=== PATIENT | male | born 1990 | race Caucasian/White ===

== ENCOUNTER 2024-12-08 17:42 | Emergency (ER) | payer OTHER, SELFPAY ==
[2024-12-08 17:44] VITALS: BP 131/82; PULSE 128; RESP 16; TEMP 36.6; O2SAT 97
--- NOTE | 2024-12-08 17:44 | ED_ITS ---
HPI - Animal Bite General Chief Complaint: Animal Bite Stated Complaint: cat bite Time Seen by Provider: 12/08/24 17:44 Source: patient Mode of arrival: ambulatory Limitations: no limitations History of Present Illness HPI narrative: 34-year-old male got bit by a cat 3 days ago on the back of his right hand. He has 2 bite logan on dorsum of the proximal phalanx the middle finger and on metacarpal. he had pain and swelling around bite hany extending to top of the index finger and the ring finger . he saw primary care physician who prescribed Augmentin 875. He has taken 3 doses but his right hand swelling tends to increase. No fever or chills patient is up-to-date on tetanus immunization. MD complaint: animal bite Onset (ago): day(s) ( 3 days ago) Animal: cat Description of animal: household pet Mechanism: bite Location - Extremities: Right: hand Pain description: constant Context: animals fighting Associated symptoms: erythema Treatments prior to arrival: other ( Augmentin) Related Data Patient tetanus UTD: Yes Allergies Allergy/AdvReac Type Severity Reaction Status Date / Time No Known Allergies Allergy Verified 12/08/24 18:16 Review of Systems 2 Review of Systems: All systems reviewed & are unremarkable except as noted in HPI and below Constitutional: Constitutional: Reports as per HPI and Reports no additional constitutional complaints Eyes: Eyes: Reports as per HPI and Reports no additional eye complaints ENT: Reports system reviewed and no additional complaints, except as documented and Reports as per HPI Cardiovascular: Cardiovascular: Reports as per HPI and Reports no additional cardiovascular complaints Respiratory: Respiratory: Reports as per HPI and Reports no additional respiratory complaints Gastrointestinal: Gastrointestinal: Reports as per HPI and Reports no additional gastrointestinal complaints Genitourinary: Genitourinary: Reports no additional male genitourinary complaints and Reports as per HPI Musculoskeletal: Musculoskeletal: Reports no additional musculoskeletal complaints and Reports as per HPI Integumentary/Breasts: Skin/Breast: Reports system reviewed and no additional complaints, except as docu Comments: pain/ erythema and swelling on the back of his right involving the proximal middle 3 fingers and the adjoining hand Neurologic: Reports system reviewed and no additional complaints, except as documented and Reports as per HPI Psychiatric: Psychiatric: Reports no additional psychiatric complaints and Reports as per HPI Endocrine: Endocrine: Reports no additional endocrine complaints and Reports as per HPI Hematologic/Lymphatic: Hematologic/Lymphatic: Reports no additional hematologic/lymphatic complaints and Reports as per HPI Allergic/Immunologic: Allergic/Immunologic: Reports no additional allergic/immunologic complaints and Reports as per HPI [facility] Past Medical History Medical History (Updated 12/08/24 @ 19:07 by Kris Guaman MD) Anxiety and depression Exam 2 Narrative: pulse 128. Blood pressure 131/82. Oxygen saturation of 97% on room air. Const: General: no acute distress Nutritional Appearance: well nourished Orientation/consciousness: patient oriented x3 Limitations: no limitations HENMT: Head: normal to inspection Ears: external ears normal F cullen/Nose/Sinus: Normal external nose present Face and sinus: normal facial exam Mouth: Yes Normal oral and palatal mucosa present Throat: posterior oropharynx normal Eyes: Conjunctivae: conjunctivae normal Pupils: Equal, round and reactive pupils present EOM: EOMs intact bilaterally Neck: Neck: normal visual inspection, no lymphadenopathy and no meningeal signs Chest: Chest palpation & inspection: normal inspection of the chest Resp: Effort & Inspection: normal respiratory effort Auscultation: clear to auscultation bilaterally Cardio: Rate: regular rate Rhythm: regular rhythm GI: GI Palp: Yes Soft to palpation Auscultation: normal bowel sounds O ther: No tenderness/rigidity/rebound. : General: Yes no CVA tenderness Back/Spine/Pelvis: Back: no CVA tenderness Skin: General skin exam: normal color Other: Cellulitis over the back of his right hand involving the proximal middle 3 fingers and the adjoining hand. The erythema extends backwards over the entire right hand. No regional lymphadenopathy. Two bite logan over the dorsum of proximal phalanx of the middle finger and over the 3rd metacarpal no difficulty extending the fingers. The patient is unable to fully flexes fingers. No tenderness over the flexor tendons. The minimal tenderness over the extent the tendon over the middle phalanx. Neuro: General: patient oriented x3, moves all extremities, no meningeal signs, no focal motor deficits and CN's II-XI intact bilaterally Speech: n ormal speech Extrem: Other: Cellulitis over the back of h Psych: Affect: normal affect Attitude: cooperative Course Course Emergency Course: Right hand cellulitis-- white count of 18.3. Normal lactate. advised the patient to monitor the cellulitis. If worsening is noted advised to return to the ED for inpatient admission with IV antibiotics. Renal insufficiency with a creatinine of 1.5 Vital Signs Vital signs: Vital Signs Temperature 36.6 C 12/08/24 17:44 Pulse Rate 128 H 12/08/24 17:44 Respiratory Rate 16 12/08/24 17:44 Blood Pressure 131/82 12/08/24 17:44 Pulse Oximetry 97 12/08/24 17:44 Oxygen Delivery Room Air 12/08/24 17:44 Temperature 36.6 C 12/08/24 17:44 Pulse Rate 128 H 12/08/24 17:44 Respiratory Rate 16 12/08/24 17:44 Blood Pressure 131/82 12/08/24 17:44 Pulse Oximetry 97 12/08/24 17:44 Oxygen Delivery Room Air 12/08/24 17:44 MDM - Animal Bite MDM Narrative Medical decision making narrative: right hand cellulitis renal insufficiency Differential Diagnosis Differential diagnosis: Likely cat bite Lab Data Attestation: I reviewed the patient's lab results. 12/08/24 18:04 12/08/24 18:04 Labs: Lab Results 12/08/24 Range/Units 18:04 WBC 18.3 H (4.8-10.8) K/mm3 RBC 5.13 (4.70-6.10) M/mm3 Hgb 14.7 (14.0-18.0) g/dL Hct 44.4 (40.0-54.0) % MCV 86.5 (78.0-102.0) fL MCH 28.7 (27.0-31.0) pg MCHC 33.1 (32-36) g/dL RDW 12.3 (11.6-14.4) % Plt Count 270 (150-420) K/mm3 MPV 9.7 (8.7-11.0) fl Immature Gran % (Auto) 0.5 H (0.0-0.0) % Neut % (Auto) 76.1 H (50.0-70.0) % Lymph % (Auto) 11.1 L (18.0-42.0) % Brantley % (Auto) 9.0 (2.0-11.0) % Eos % (Auto) 2.6 (1.0-6.0) % Baso % (Auto) 0.7 (0.0-1.0) % Lymph # (Auto) 2.03 (1.10-4.50) K/mm3 Brantley # (Auto) 1.65 H (0.10-0.90) K/mm3 Eos # (Auto) 0.48 (0.02-0.50) K/mm3 Baso # (Auto) 0.12 H (0.00-0.10) K/mm3 Abs Immat Gran (auto) 0.10 H (0.00-0.00) K/mm3 Absolute Neuts (auto) 13.96 H (1.70-7.20) K/mm3 Absolute Nucleated RBC 0.00 (0.00-0.00) K/mm3 Nucleated RBC % 0.0 (0-0.0) % Sodium 137 (137-145) mmol/L Potassium 4.1 (3.4-5.0) mmol/L Chloride 105 (98-107) mmol/L Carbon Dioxide 22 (22-30) mmol/L Anion Gap 10 (4-12) mmol/L BUN 14 (9-20) mg/dL Creatinine 1.35 H (0.7-1.3) mg/dL Estim Creat Clear Calc 89 ml/min Estimated GFR 60 (59 - ) Glucose 84 (65-110) mg/dL Calculated Osmolality 283 L (285-295) mOsm/kg Lactic Acid 1.2 (0.4-2.0) mmol/L Calcium 8.9 (8.4-10.2) mg/dL Total Bilirubin 0.4 (0.2-1.3) mg/dL AST 30 (17-59) U/L ALT 22 (6-50) U/L Alkaline Phosphatase 65 (38-126) U/L Total Protein 7.0 (6.3-8.2) g/dL Albumin 4.0 (3.5-5.1) g/dL Discharge Plan Discharge Clinical Impression: Cellulitis of hand Cat bite Qualifiers: Encounter type: subsequent encounter Qualified Code(s): W55.01XD - Bitten by cat, subsequent encounter Patient Disposition: Home Condition: Stable Instructions: Antibiotic Form, Cellulitis (ED) Additional Instructions: advised to follow-up with primary care physician in 2 days. Blood cultures are pending. Continue Augmentin. Patient Language: Swedish Follow-up/Referrals: UNKNOWN,DOCTOR [Non-Staff] - Time of Disposition: 19:07
--- OUTSIDE RECORDS SUMMARY | 2024-12-08 17:45 | XMS_ITS | Encounter Summary ---
Author Name [facility] [place] [facility] [place] Address [address] [place] [address] Care Team Providers Care Contracting Officer Name Role Phone ASHWINI DAVIS Primary Care Provider Unavailabl e Insurance Providers: All historical and current Section Date Range: From patient's date of to the date document was created. This section includes the names of all active insurance providers for the patient. Insurance Provider Type of Coverage Plan Name Start of Policy Coverage End of Policy Coverage Group Number Member ID Insurance Provider's Telephone Number Policy Ochoa's Name Patient's Relationship to Policy Ochoa Selected Encounter This section includes the information on record at [place] for the Encounter. Date/Time Encounter Type Encounter Description Reason Provider Source Dec 03, 2024 08:00 AM OFFICE O/P EST MOD 30 MIN ENDOCRINOLOGY ICD-10-CM E29.[address] T[facility] Yaz Encounter Template Text not used by [place] Assessments - Encounter Diagnoses This section includes the primary and secondary diagnoses documented for the Encounter. Date/Time Primary/Secondary Diagnosis Diagnosis Name Provider Source Dec 03, 2024 08:12 AM PRIMARY Testicular hypofunction [facility] [facility] Plan of Treatment: Future Appointments (+ 6 months) and Future Tests (+/- 45 days) The Plan of Treatment section includes future care activities for the patient from all [place] treatmentfacilities. This section includes future appointments and future orders which are active, pending or scheduled. Future Appointments This section includes appointments that were scheduled to occur 6 months from the date of the Encounter, up to a maximum of 20 appointments. The data comes from all [facility]. Appointment Date/Time Appointment Type Appointme nt Facility Name Jan 10, 2025 03:30 PM AMBULATORY - NONE [facility] Feb 06, 2025 08:00 AM AMBULATORY - PSYCHIATRY [facility] Feb 11, 2025 03:00 PM AMBULATORY - NONE [facility] Mar 11, 2025 02:40 PM AMBULATORY - NONE [facility] May 27, 2025 08:00 AM AMBULATORY - MEDICINE [facility] Active, Pending, and Scheduled Orders This section includes a listing of several types of active, pending, and scheduled orders, including clinic medications orders, diagnostic test orders, procedure orders and consult orders; where the start date of the order is 45 days before the date of the Encounter or 45 days after the date of theEncounter. The data comes from all [facility]. Test Date/Time Test Type Test Details Facility Name Dec 14, 2024 12:00 AM Laboratory - Chemistry Order TESTOSTERONE, FREE PANEL RED/NO-GEL SERUM SP [facility] Dec 14, 2024 12:00 AM Laboratory - Chemistry Order CBC BLOOD SP [facility] Dec 14, 2024 12:00 AM Laboratory - Chemistry Order COMPREHENSIVE METABOLIC PANEL GREEN LI/HEP BLD/PLAS PLASMA [facility] Dec 14, 2024 12:00 AM Laboratory - Chemistry Order LIPID PANEL (STL) GREEN LI/HEP BLD/PLAS PLASMA SP [facility] Dec 14, 2024 12:00 AM Laboratory - Chemistry Order HGA1C BLOOD [facility] Social History: Smoking Status (Most current) and Tobacco Use (All prior to encounter date) This section includes the most current, and the historical, smoking and tobacco- related health factors from the [place] facility where the Encounter took place. Current Smoking Status This section includes the most current smoking, or tobacco-related health factor, from the [place] facility where the Encounter took place. Date/Time Current Smoking Status Jonny mahan 2023 10:30 AM AH-BPR SMOKING DEPLOYMENT NO [facility] Encounter Notes: All associated encounter notes This section contains the clinical notes associated to the Encounter. Date/Time Encounter Note(s) Provider Source Dec 03, 2024 07:58 [facility]: LOCAL TITLE: ENDOCRINOLOGY OUTPATIENT FOLLOW UP [facility] STANDARD TITLE: ENDOCRINOLOGY OUTPATIENT NOTE DATE OF NOTE: DEC 03, 2024@07:58 ENTRY DATE: DEC 03, 2024@07:58:33 AUTHOR: LANE TORIBIO EXP COSIGNER: URGENCY: STATUS: COMPLETED ENDOCRINOLOGY VIRTUAL VISIT The was educated about the use of Clinical Video Telehealth for this encounter. The [place] also understands that a video-technology is being used for this visit. The consents to be seen today using Clinical Video Telehealth. Emergency Services contact [phone] Full name and last 4 of SSN verified Patient location during visit: Home [phone] [place] [address] Emergency number confirmed. Follow up: hypogonadism HPI: 34 year old male with no prior medical history who presents for evaluation of hypogonadism. 1. Hypogonadism - symptoms: low libido, tired, erectile dysfunction for several years - BMI 29 - no TBI, radiation, prostate issues, opioid or alcohol use - had 5 children, had vasectomy - No history of CVD, DVT/PE, prostate cancer, severe untreated KRISTIN - no vision changes, headaches, galatorrhea: no - kristin: use cpap regularly - sleep: sleep is good, at least 6 hours daily Pertinent labs: prolactin 16 FSh 3, LH 1.4, LH 1.5 in 10/2023 TSH 1.7 in 202101/02/2024, 9 am total T 296 and free T 39 L PSA 0.6 hct 48 Pituitary MRI 04/2024: Findings: No mass, midline shift, obstructive hydrocephalus or abnormal contrast enhancement is observed. The pituitary is normal in size, shape and position. The pituitary stalk is in normal midline position. No macroadenoma or definite microadenoma is seen. There is a 1-2 mm hypointensity to the right of the pituitary stalk without stalk deviation best seen on series 11 image 8. It is hyperintense on T2-weighted sequences and is unchanged throughout the dynamic enhancement sequence. I cannot be certain at this time whether this represents a cyst, artifact or microadenoma. Impression: Small area of hypointensity in the right side of the pituitary as described and discussed above. Current dose is testosterone 100 mg every 2 weeks. Feels energy level has improved - started on 200 mg every 2 weeks in 02/2024 lab results total testosterone of 553 hematocrit 47.3% in V PSA was 0.6 in 2023 - Testosterone changed from 200 mg every 2 weeks to 100 mg weekly as he feels that effects are wearing off after a few days ROS: 10 point ros done and negative except as per HPI Active Outpatient Medications (including Supplies): Active Outpatient Medications Status 1) SYRINGE 3ML/NDL 23G 1.5IN USE 1 SYRINGE INTRAMUSCULARLY ACTIVE (S) WEEKLY Indication: FOR TESTOSTERONE INJECTION 2) TESTOSTERONE CYP 200MG/ML 1ML IN OIL INJECT 100MG/0.5ML ACTIVE (S) DEEP INTRAMUSCULARLY WEEKLY Indication: FOR LOW TESTOSTERONE PAST HISTORY: 1) Exposure to potentially hazardous substance (SNOMED CT [id number]) OBJECTIVE: VVC Physical Exam Home vitals: GENERAL: No acute distress. Sitting comfortably Respiratory: Regular respiratory rate. Musculoskeletal: No joint deformity or effusion apparent on video Neuro: Alert and orientated SKIN: No obvious rash or ecchymosis. Objective: No HEMOGLOBIN A1C EO data found No BASIC METABOLIC PANEL (BMP) EO data found No data available No MICRAL/CREAT RATIO (STL) data found No LIPID PANEL EO data found No TSH (2YR) EO data found Allergies: ORLISTAT Assessment/Plan: 34 year old male with no prior medical history who presents for evaluation of hypogonadism. 1. 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 - symptoms: low libido, tired, erectile dysfunction for several years - BMI 29 - no TBI, radiation, prostate issues, opioid or alcohol use - had 5 children, had vasectomy - No history of CVD, DVT/PE, prostate cancer, severe untreated KRISTIN - no vision changes, headaches, galatorrhea: no - kristin: use cpap regularly - sleep: sleep is good, at least 6 hours daily - exercise: at least 3-4 times weekly Pertinent labs: prolactin 16 FSh 3, LH 1.4, LH 1.5 in 10/2023 TSH 1.7 in 202101/02/2024, 9 am total T 296 and free T 39 L PSA 0.6 hct 48 Pituitary MRI 04/2024: Findings: No mass, midline shift, obstructive hydrocephalus or abnormal contrast enhancement is observed. The pituitary is normal in size, shape and position. The pituitary stalk is in normal midline position. No macroadenoma or definite microadenoma is seen. There is a 1-2 mm hypointensity to the right of the pituitary stalk without stalk deviation best seen on series 11 image 8. It is hyperintense on T2-weighted sequences and is unchanged throughout the dynamic enhancement sequence. I cannot be certain at this time whether this represents a cyst, artifact or microadenoma. Impression: Small area of hypointensity in the right side of the pituitary as described and discussed above. Current dose is testosterone 100 mg every 2 weeks. Feels energy level has improved - started on 200 mg every 2 weeks in 02/2024 lab results total testosterone of 553 hematocrit 47.3% in JLV PSA was 0.6 in 2023 - Testosterone changed from 200 mg every 2 weeks to 100 mg weekly as he feels that effects are wearing off after a few days P: - continue testosterone 100 mg weekly - endorses fatigue - advised that fatigue may not always get better with TRT. Will repeat testosterone level and cbc, also order cmp, lipid panel and a1c - continue regulary use of cpapc and regular exercise - repeat MRI pituitary in 04/2025 RTC 6 months Patient verbalized understanding and has no questions. /zainab/ Lane Toribio MD [employer] Signed: 12/03/2024 08:[address] [facility]
--- OUTSIDE RECORDS SUMMARY | 2024-12-08 17:45 | XMS_ITS | Continuity of Care Document ---
Author Name [facility] Organization [facility] Care Team Providers Care Gender Studies Professor Name Role Phone [facility] Unavailable Unavailable Problems Combined list of problems from Department of Defense and Veterans Affairs facilities. It does not include entries that were removed or entered in error. Problem Status Onset Date Problem Type Date of Resolution Comments Source OTHER SPECIFIED FAMILY CIRCUMSTANCES Active Condition DoD ADULT PHYSICAL ABUSE Active Condition DoD visit for: services physical Active Condition DoD ALCOHOL DEPENDENCE (ALCOHOLISM) Active Condition DoD PARTNER RELATIONAL PROBLEM Inactive Condition DoD visit for: administrative purpose Inactive Condition DoD visit: ears/hearing exam for hearing conservation, treatment Inactive Condition DoD ASSESSMENT OF PATIENT CONDITION WORK STATUS Active Condition DoD Observation For Suspected Condition Active Condition DoD CONTACT DERMATITIS DUE TO PLANTS Inactive Condition DoD Vaccines Prophylactic Need Active Condition DoD Need For Vaccination Hepatitis A Active Condition DoD Need For Vaccination MMR Active Condition DoD visit for: laboratory Active Condition DoD visit for: screening exam Active Condition DoD carrier of infectious disease streptococcal Active Condition DoD Vaccines Prophylactic Need Against Influenza Inactive Condition DoD Vaccines Prophylactic Need Against Bacterial Diseases Active Condition DoD Need For Vaccination Poliomyelitis Active Condition DoD visit for: screening exam pulmonary tuberculosis Active Condition DoD Vaccines Prophylactic Need Against DTP Active Condition DoD visit for: services physical accession Active Condition DoD visit for: ears / hearing exam Inactive Condition DoD Allergic rhinitis Active Condition [facility] Anxiety disorder Active [facility] Asthma Active Condition Aug 23 24 Entered By: KATARINA CORRIGAN Comment: Seen community care stave jointer diagnosed him with asthma put on looks well today [facility] Chronic low back pain Active Condition [facility] Chronic pain of left foot Active Condition [facility] Chronic post-traumatic stress disorder following combat Active [facility] Continuous dependence on chewing tobacco Active Condition [facility] Depressive disorder Active Condition [facility] Equinus contracture of the ankle Active Condition [facility] Exposure to Potentially Hazardous Substance (SCT [id number]) Active Condition [facility] Exposure to potentially hazardous substance (SNOMED CT [id number]) Active Condition Jan 19 3 Entered By: LUKASZ AGUIRRE I Comment: Airborne Hazards/Burn pits [facility] 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 [facility] Obesity Active Condition [facility] Obstructive sleep apnea Active Condition [facility] Pain of bilateral knee joints Active Condition [facility] Diagnosis: ICD-10-CM E29.1 Testicular hypofunction Active Diagnosis [facility] Diagnosis: ICD-10-CM F43.12 Post-traumatic stress disorder, chronic Active Diagnosis [facility] Diagnosis: ICD-10-CM Z00.01 Encounter for general adult medical exam w abnormal findings Active Diagnosis [facility] Diagnosis: ICD-10-CM E66.09 Other obesity due to excess calories Active Diagnosis [facility] Diagnosis: ICD-10-CM E66.9 Obesity, unspecified Active Diagnosis [facility] Diagnosis: ICD-10-CM Z68.30 Body mass index [BMI] 30.0-30.9, adult Active Diagnosis [facility] Diagnosis: ICD-10-CM J45.909 Unspecified asthma, uncomplicated Active Diagnosis [facility] Diagnosis: ICD-10-CM G47.00 Insomnia, unspecified Active Diagnosis [facility] Diagnosis: ICD-10-CM J45.998 Other asthma Active Diagnosis [facility] Medications Combined list of outpatient medications from Department of Defense and [facility] Affairs facilities.Medications provided include 1) outpatient medications from the last 15 months, and 2) patient-reported medications. Medication Details Route Status Patient Instructions Prescription Expires Prescription Number Last Dispense Date Ordering Provider Order Date Order Qty Source ACETAMINOPH EN 500MG TAB TAKE TWO TABLETS BY MOUTH THREE TIMES A DAY NEEDED FOR PAIN OR FEVER - DO NOT EXCEED 4000MG OF ACETAMIN OPHEN (APAP) PER DAY FROM ANY AND ALL SOURCES ORAL SUSPEND ED 11/22/2025 [id number] Braeden MAKI [address] [place] [address] ACETAMINOPH EN 500MG TAB TAKE TWO TABLETS BY MOUTH THREE TIMES A DAY NEEDED FOR PAIN OR FEVER - DO NOT EXCEED 4000MG OF ACETAMIN OPHEN (APAP) PER DAY FROM ANY AND ALL SOURCES ORAL DISCONT INUED 09/25/2025 [id number] 5 Braeden DAVIS 2024 100 [facility] ACETAMINOPH EN 500MG TAB TAKE TWO TABLETS BY MOUTH THREE TIMES A DAY NEEDED FOR PAIN OR FEVER - DO NOT EXCEED 4000MG OF ACETAMIN OPHEN (APAP) PER DAY FROM ANY AND ALL SOURCES ORAL DISCONT INUED 08/10/2025 [id number] 5 Adalberto MYERS 2024 100 [facility] ACETAMINOPH EN 500MG TAB TAKE TWO TABLETS BY MOUTH THREE TIMES A DAY NEEDED FOR PAIN OR FEVER - DO NOT EXCEED 4000MG OF ACETAMIN OPHEN (APAP) PER DAY FROM ANY AND ALL SOURCES ORAL DISCONT INUED 06/19/2025 [id number] 5 DO KEIRY CORRIGAN R 2024 100 [facility] ACETAMINOPH EN 500MG TAB TAKE TWO TABLETS BY MOUTH THREE TIMES A DAY NEEDED FOR PAIN OR FEVER - DO NOT EXCEED 4000MG OF ACETAMIN OPHEN (APAP) PER DAY FROM ANY AND ALL SOURCES ORAL DISCONT INUED 04/21/2025 [id number] 4 DO KEIRY CORRIGAN R 2023 100 [facility] ACETAMINOPH EN 500MG TAB TAKE TWO TABLETS BY MOUTH THREE TIMES A DAY NEEDED FOR PAIN OR FEVER - DO NOT EXCEED 4000MG OF ACETAMIN OPHEN (APAP) PER DAY FROM ANY AND ALL SOURCES ORAL DISCONT INUED 02/23/2025 [id number] 4 DO KEIRY CORRIGAN R 2023 100 [facility] ACETAMINOPH EN 500MG TAB TAKE TWO TABLETS BY MOUTH THREE TIMES A DAY NEEDED FOR PAIN OR FEVER - DO NOT EXCEED 4000MG OF ACETAMIN OPHEN (APAP) PER DAY FROM ANY AND ALL SOURCES ORAL DISCONT INUED 01/17/2025 [id number] 4 DO KEIRY CORRIGAN R 2023 100 [facility] ACETAMINOPH EN 500MG TAB TAKE TWO TABLETS BY MOUTH THREE TIMES A DAY NEEDED FOR PAIN OR FEVER - DO NOT EXCEED 4000MG OF ACETAMIN OPHEN (APAP) PER DAY FROM ANY AND ALL SOURCES ORAL DISCONT INUED 08/23/2024 [id number] 4 DO KEIRY CORRIGAN R 2023 100 [facility] ALBUTEROL 90MCG/ACTUA T (CFC-F) INHL,ORAL,8 .5GM DOSE COUNTER INHALE 2 PUFFS BY MOUTH EVERY 6 HOURS NEEDED RESPIR ATORY (INHAL ATION) SUSPEND ED 11/20/2025 [id number] 5 Braeden DAVIS 2024 3 [facility] ALBUTEROL 90MCG/ACTUA T (CFC-F) INHL,ORAL,8 .5GM DOSE COUNTER INHALE 2 PUFFS BY MOUTH EVERY 6 HOURS NEEDED RESPIR ATORY (INHAL ATION) DISCONT INUED 05/02/2025 [id number] 5 Adalberto MYERS 2024 3 [facility] ALBUTEROL 90MCG/ACTUA T (CFC-F) INHL,ORAL,8 .5GM DOSE COUNTER INHALE 2 PUFFS BY MOUTH EVERY 6 HOURS NEEDED RESPIR ATORY (INHAL ATION) DISCONT INUED 01/17/2025 [id number] 4 DO KEIRY CORRIGAN 2023 3 [facility] ALBUTEROL 90MCG/ACTUA T (CFC-F) INHL,ORAL,8 .5GM DOSE COUNTER INHALE 2 PUFFS BY MOUTH EVERY 6 HOURS NEEDED RESPIR ATORY (INHAL ATION) DISCONT INUED 02/15/2024 [id number] NAM CANNON 2022 3 [facility] CELECOXIB 200MG CAP TAKE ONE CAPSULE BY MOUTH TWO TIMES A DAY NEEDED FOR PAIN ORAL SUSPEND ED 11/20/2025 [id number] 5 Braeden DAVIS 2024 180 [facility] CELECOXIB 200MG CAP TAKE ONE CAPSULE BY MOUTH TWO TIMES A DAY NEEDED FOR PAIN ORAL DISCONT INUED 08/10/2025 [id number] 5 Adalberto MYERS 2024 180 [facility] CELECOXIB 200MG CAP TAKE ONE CAPSULE BY MOUTH TWO TIMES A DAY NEEDED FOR PAIN ORAL DISCONT INUED 05/02/2025 [id number] 5 Adalberto MYERS 2024 180 [facility] CELECOXIB 200MG CAP TAKE ONE CAPSULE BY MOUTH TWO TIMES A DAY NEEDED FOR PAIN ORAL DISCONT INUED 01/17/2025 [id number] 4 DO MEENU UGLAS R 2023 180 [facility] CELECOXIB 200MG CAP TAKE ONE CAPSULE BY MOUTH TWO TIMES A DAY NEEDED FOR PAIN ORAL DISCONT INUED 08/23/2024 [id number] 4 DO MEENU UGLAS R 2023 180 [facility] CELECOXIB 200MG CAP TAKE ONE CAPSULE BY MOUTH TWO TIMES A DAY NEEDED FOR PAIN ORAL DISCONT INUED 01/17/2025 [id number] 4 DO MEENU UGLAS R 2023 180 [facility] CEPHALEXIN 500MG CAP TAKE ONE CAPSULE BY MOUTH TWICE A DAY FOR INFECTIO N ORAL 10/26/2024 [id number] Braeden DAVIS 2024 14 [facility] CETIRIZINE HCL 10MG TAB TAKE ONE TABLET BY MOUTH EVERY DAY ORAL SUSPEND ED 11/20/2025 [id number] 5 Braeden DAVIS 2024 90 [facility] CETIRIZINE HCL 10MG TAB TAKE ONE TABLET BY MOUTH EVERY DAY ORAL DISCONT INUED 08/23/2024 [id number] 4 DO KEIRY CORRIGAN R 2023 90 [facility] CETIRIZINE HCL 10MG TAB TAKE ONE TABLET BY MOUTH EVERY DAY ORAL DISCONT INUED 08/10/2025 [id number] 5 Adalberto MYERS A 2024 90 [facility] CETIRIZINE HCL 10MG TAB TAKE ONE TABLET BY MOUTH EVERY DAY ORAL DISCONT INUED 01/17/2025 [id number] 5 DO MEENU UGLAS R 2023 90 [facility] CHOLECALCIF IMELDA 10MCG (400UNIT) TAB TAKE ONE TABLET BY MOUTH DAILY FOR DIETARY SUPPLEME NT ORAL SUSPEND ED 11/20/2025 [id number] 5 Braeden DAVIS 2024 100 [facility] CHOLECALCIF IMELDA 10MCG (400UNIT) TAB TAKE ONE TABLET BY MOUTH DAILY FOR DIETARY SUPPLEME NT ORAL DISCONT INUED 08/23/2024 [id number] DO SWAPNA CORRIGANLAS R 2023 90 [facility] CHOLECALCIF IMELDA 10MCG (400UNIT) TAB TAKE ONE TABLET BY MOUTH DAILY FOR DIETARY SUPPLEME NT ORAL DISCONT INUED 05/02/2025 [id number] 5 Adalberto MYERS A 2024 100 [facility] CHOLECALCIF IMELDA 10MCG (400UNIT) TAB TAKE ONE TABLET BY MOUTH DAILY FOR DIETARY SUPPLEME NT ORAL DISCONT INUED 01/17/2025 [id number] 4 DO SWAPNA CORRIGANLAS R 2023 100 [facility] CYCLOBENZAP RINE HCL 10MG TAB TAKE ONE TABLET BY MOUTH AT BEDTIME NEEDED FOR MUSCLE RELAXATI ON ORAL ACTIVE 11/20/2025 [id number] 5 Braeden DAVIS 2024 30 [facility] CYCLOBENZAP RINE HCL 10MG TAB TAKE ONE TABLET BY MOUTH AT BEDTIME NEEDED FOR MUSCLE RELAXATI ON ORAL DISCONT INUED 05/02/2025 [id number] 5 Adalberto MYERS A 2023 30 [facility] CYCLOBENZAP RINE HCL 10MG TAB TAKE ONE TABLET BY MOUTH AT BEDTIME NEEDED FOR MUSCLE RELAXATI ON ORAL DISCONT INUED 01/17/2025 [id number] 4 DO MEENU UGLAS R 2023 30 [facility] CYCLOBENZAP RINE HCL 10MG TAB TAKE ONE TABLET BY MOUTH AT BEDTIME NEEDED FOR MUSCLE RELAXATI ON ORAL DISCONT INUED 08/23/2024 [id number] DO MEENU UGLAS R 2023 30 [facility] DICLOFENAC NA 1% GEL,TOP APPLY 2 GRAMS TOPICALL Y FOUR TIMES A DAY NEEDED NEEDED FOR PAIN AND INFLAMMA TION. DON'T EXCEED 16 GRAMS DAILY TO ANY AFFECTED LEG AREA. DON'T EXCEED 8 GRAMS DAILY TO ANY AFFECTED ARM AREA. DON'T EXCEED A TOTAL DOSE OF 32 GRAMS DAILY OVER ALL AREAS. *USE DOSING CARD TO MEASURE DOSE.* TOPICA L SUSPEND ED 11/01/2025 [id number] 5 Braeden DAVIS 2024 100 [facility] DICLOFENAC NA 1% GEL,TOP APPLY 2 GRAMS TOPICALL Y FOUR TIMES A DAY NEEDED NEEDED FOR PAIN AND INFLAMMA TION. DON'T EXCEED 16 GRAMS DAILY TO ANY AFFECTED LEG AREA. DON'T EXCEED 8 GRAMS DAILY TO ANY AFFECTED ARM AREA. DON'T EXCEED A TOTAL DOSE OF 32 GRAMS DAILY OVER ALL AREAS. *USE DOSING CARD TO MEASURE DOSE.* TOPICA L DISCONT INUED 05/02/2025 [id number] 5 Adalberto MYERS 2023 100 [facility] DICLOFENAC NA 1% GEL,TOP APPLY 2 GRAMS TOPICALL Y FOUR TIMES A DAY NEEDED NEEDED FOR PAIN AND INFLAMMA TION. DON'T EXCEED 16 GRAMS DAILY TO ANY AFFECTED LEG AREA. DON'T EXCEED 8 GRAMS DAILY TO ANY AFFECTED ARM AREA. DON'T EXCEED A TOTAL DOSE OF 32 GRAMS DAILY OVER ALL AREAS. *USE DOSING CARD TO MEASURE DOSE.* TOPICA L DISCONT INUED 01/17/2025 [id number] 4 DO KEIRY CORRIGAN R 2023 100 [facility] DICLOFENAC NA 1% GEL,TOP APPLY 2 GRAMS TOPICALL Y FOUR TIMES A DAY NEEDED NEEDED FOR PAIN AND INFLAMMA TION. DON'T EXCEED 16 GRAMS DAILY TO ANY AFFECTED LEG AREA. DON'T EXCEED 8 GRAMS DAILY TO ANY AFFECTED ARM AREA. DON'T EXCEED A TOTAL DOSE OF 32 GRAMS DAILY OVER ALL AREAS. *USE DOSING CARD TO MEASURE DOSE.* TOPICA L DISCONT INUED 08/23/2024 [id number] DO KEIRY CORRIGAN R 2023 100 [facility] FLUTICASONE 250MCG/SALM ETEROL 50MCG INHL,ORAL,D ISKUS,60 INHALE 1 PUFF BY MOUTH TWICE A DAY FOR SHORTNES S OF BREATH FROM ASTHMA RINSE MOUTH AFTER USE. RESPIR ATORY (INHAL ATION) SUSPEND ED 11/20/2025 [id number] 5 Braeden DAVIS 2024 3 [place] [facility] FLUTICASONE 250MCG/SALM ETEROL 50MCG INHL,ORAL,D ISKUS,60 INHALE 1 PUFF BY MOUTH TWICE A DAY FOR SHORTNES S OF BREATH FROM ASTHMA RINSE MOUTH AFTER USE. RESPIR ATORY (INHAL ATION) DISCONT INUED 08/10/2025 [id number] 5 Adalberto MYERS A 2024 3 [place] [facility] FLUTICASONE 250MCG/SALM ETEROL 50MCG INHL,ORAL,D ISKUS,60 INHALE 1 PUFF BY MOUTH TWICE A DAY FOR SHORTNES S OF BREATH FROM ASTHMA RINSE MOUTH AFTER USE. RESPIR ATORY (INHAL ATION) DISCONT INUED 05/02/2025 [id number] 5 Adalberto MYERS A 2024 3 [place] [facility] FLUTICASONE 250MCG/SALM ETEROL 50MCG INHL,ORAL,D ISKUS,60 INHALE 1 PUFF BY MOUTH TWICE A DAY FOR SHORTNES S OF BREATH FROM ASTHMA RINSE MOUTH AFTER USE. RESPIR ATORY (INHAL ATION) DISCONT INUED 04/20/2025 [id number] KARYN PEDRAZA H 2023 3 [facility] FLUTICASONE 250MCG/SALM ETEROL 50MCG INHL,ORAL,D ISKUS,60 INHALE 1 PUFF BY MOUTH TWICE A DAY RINSE MOUTH AFTER USE. RESPIR ATORY (INHAL ATION) DISCONT INUED 04/14/2025 [id number] 4 DO KEIRY CORRIGAN R 2023 1 [place] [facility] FLUTICASONE 250MCG/SALM ETEROL 50MCG INHL,ORAL,D ISKUS,60 INHALE 1 PUFF BY MOUTH TWICE A DAY RINSE MOUTH AFTER USE. RESPIR ATORY (INHAL ATION) DISCONT INUED 01/17/2025 [id number] 4 DO KEIRY CORRIGAN R 2023 1 [facility] FLUTICASONE 250MCG/SALM ETEROL 50MCG INHL,ORAL,D ISKUS,60 INHALE 1 PUFF BY MOUTH TWICE A DAY RINSE MOUTH AFTER USE. RESPIR ATORY (INHAL ATION) DISCONT INUED 08/23/2024 [id number] 4 DO SWAPNA CORRIGANLAS R 2023 1 [facility] FLUTICASONE PROPIONATE 50MCG/SPRAY SOLN,NASAL, 16GM 2 SPRAYS EACH NOSTRIL AT BEDTIME FOR NASAL SYMPTOMS NASAL SUSPEND ED 11/20/2025 [id number] 5 Braeden DAVIS 2024 3 [facility] FLUTICASONE PROPIONATE 50MCG/SPRAY SOLN,NASAL, 16GM 2 SPRAYS EACH NOSTRIL AT BEDTIME FOR NASAL SYMPTOMS NASAL DISCONT INUED 05/02/2025 [id number] 5 Adalberto MYERS 2024 3 [facility] FLUTICASONE PROPIONATE 50MCG/SPRAY SOLN,NASAL, 16GM 2 SPRAYS EACH NOSTRIL AT BEDTIME FOR NASAL SYMPTOMS NASAL DISCONT INUED 01/17/2025 [id number] 4 DO KEIRY CORRIGAN R 2023 3 [facility] FLUTICASONE PROPIONATE 50MCG/SPRAY SOLN,NASAL, 16GM 2 SPRAYS EACH NOSTRIL AT BEDTIME FOR NASAL SYMPTOMS NASAL DISCONT INUED 08/23/2024 [id number] 4 DO KEIRY CORRIGAN R 2023 3 [facility] PRAZOSIN HCL 5MG CAP TAKE THREE CAPSULES BY MOUTH AT BEDTIME FOR NIGHTMAR ES OR SLEEP DISRUPTI ON ORAL ACTIVE 09/06/2025 [id number] 5 MANJULA ROGERS 2024 270 [facility] PRAZOSIN HCL 5MG CAP TAKE THREE CAPSULES BY MOUTH AT BEDTIME ORAL DISCONT INUED 2025 [id number] 5 AMEELTRE AN 2023 270 [facility] PRAZOSIN HCL 5MG CAP TAKE THREE CAPSULES BY MOUTH AT BEDTIME ORAL DISCONT INUED 03/11/2024 [id number] AMEEL,TRE AN 2022 270 [facility] SEMAGLUTIDE (WT LOSS) 2.4MG/0.75M L INJ,SOLN,PE N,0.75ML INJECT 2.4MG/ON E PEN UNDER THE SKIN WEEKLY FOR OBESITY SUBCUT ANEOUS SUSPEND ED 07/06/2025 [id number] 5 LILI FLAHERTY GE K 2024 12 [facility] SEMAGLUTIDE (WT LOSS) 2.4MG/0.75M L INJ,SOLN,PE N,0.75ML INJECT 2.4MG/ON E PEN UNDER THE SKIN WEEKLY FOR OBESITY SUBCUT ANEOUS DISCONT INUED 07/24/2024 [id number] 4 Adalberto MYERS 2023 12 [facility] SEMAGLUTIDE (WT LOSS) 2.4MG/0.75M L INJ,SOLN,PE N,0.75ML INJECT 2.4MG/ON E PEN UNDER THE SKIN WEEKLY FOR OBESITY SUBCUT ANEOUS DISCONT INUED 04/10/2024 [id number] 4 DO KEIRY CORRIGAN 2023 12 [facility] SEMAGLUTIDE (WT LOSS) 2.4MG/0.75M L INJ,SOLN,PE N,0.75ML INJECT 2.4MG/ON E PEN UNDER THE SKIN WEEKLY FOR OBESITY SUBCUT ANEOUS DISCONT INUED 03/20/2024 [id number] 4 LILI FLAHERTY GE K 2023 [facility] SEMAGLUT[facility] (WT LOSS) 2.4MG/0.75M L INJ,SOLN,PE N,0.75ML INJECT 2.4MG/ON E PEN UNDER THE SKIN WEEKLY FOR OBESITY SUBCUT ANEOUS DISCONT INUED 12/20/2023 [id number] 4 LILI FLAHERTY 2023 12 [facility] SEMAGLUTIDE (WT LOSS) 2.4MG/0.75M L INJ,SOLN,PE N,0.75ML INJECT 2.4MG/ON E PEN UNDER THE SKIN WEEKLY FOR OBESITY SUBCUT ANEOUS DISCONT INUED 11/15/2023 [id number] 4 DO KEIRY CORRIGAN 2023 12 [facility] SERTRALINE HCL 100MG TAB TAKE TWO TABLETS BY MOUTH EVERY DAY FOR MENTAL HEALTH ORAL ACTIVE 09/06/2025 [id number] 5 MANJULA ROGERS 2024 180 [facility] SERTRALINE HCL 100MG TAB TAKE TWO TABLETS BY MOUTH EVERY DAY ORAL DISCONT INUED 2025 [id number] 5 TRE JONES 2023 180 [facility] SERTRALINE HCL 100MG TAB TAKE TWO TABLETS BY MOUTH EVERY DAY PLEASE MAKE APPOINTM ENT WITH DR. JONES IN THE NEAR FUTURE IN ORDER TO CONTINUE TO RECEIVE REFILLS OF THIS MEDICATI ON. ORAL DISCONT INUED (EDIT) 03/11/2024 [id number] TRE JONES 2022 180 [facility] SILDENAFIL CITRATE 100MG TAB TAKE ONE TABLET BY MOUTH NEEDED TAKE 30 TO 60 MINUTES PRIOR TO SEXUAL ACTIVITY ; LIMITED TO 6 DOSES PER MONTH ORAL DISCONT INUED 10/22/2024 [id number] 5 Adalberto MYERS 2024 18 [facility] SILDENAFIL CITRATE 100MG TAB TAKE ONE TABLET BY MOUTH NEEDED TAKE 30 TO 60 MINUTES PRIOR TO SEXUAL ACTIVITY ; LIMITED TO 6 DOSES PER MONTH ORAL DISCONT INUED 07/30/2024 [id number] 4 Adalberto MYERS A 2023 18 [facility] SILDENAFIL CITRATE 100MG TAB TAKE ONE TABLET BY MOUTH NEEDED TAKE 30 TO 60 MINUTES PRIOR TO SEXUAL ACTIVITY ; LIMITED TO 6 DOSES PER MONTH ORAL DISCONT INUED 04/16/2024 [id number] 4 DO SWAPNA CORRIGANLAS R 2023 18 [facility] SILDENAFIL CITRATE 100MG TAB TAKE ONE TABLET BY MOUTH NEEDED TAKE 30 TO 60 MINUTES PRIOR TO SEXUAL ACTIVITY ; LIMITED TO 6 DOSES PER MONTH ORAL DISCONT INUED 02/07/2024 [id number] 4 DO MEENU UGLAS R 2023 18 [facility] SILDENAFIL CITRATE 100MG TAB TAKE ONE TABLET BY MOUTH NEEDED TAKE 30 TO 60 MINUTES PRIOR TO SEXUAL ACTIVITY ; LIMITED TO 6 DOSES PER MONTH ORAL DISCONT INUED 08/23/2024 [id number] 4 DO SWAPNA CORRIGANLAS R 2023 6 [facility] SILDENAFIL CITRATE 100MG TAB TAKE ONE TABLET BY MOUTH NEEDED TAKE 30 TO 60 MINUTES PRIOR TO SEXUAL ACTIVITY ; LIMITED TO 6 DOSES PER MONTH ORAL 11/07/2024 [id number] 5 Adalberto MYERS A 2024 18 [facility] TESTOSTERON E CYPIONATE 200MG/ML INJ,1ML (IN OIL) INJECT 100MG/0. 5ML DEEP INTRAMUS CULARLY WEEKLY FOR LOW TESTOSTE AWA INTRAM USCULA R SUSPEND ED 02/28/2025 [id number] 5 [facility] 2024 4 [facility] TESTOSTERON E CYPIONATE 200MG/ML INJ,1ML (IN OIL) INJECT 100MG/0. 5ML DEEP INTRAMUS CULARLY EVERY 2 WEEKS INTRAM USCULA R DISCONT INUED 01/16/2025 [id number] 5 [facility] 2024 2 [facility] TESTOSTERON E CYPIONATE 200MG/ML INJ,1ML (IN OIL) INJECT 100MG/0. 5ML DEEP INTRAMUS CULARLY EVERY 2 WEEKS FOR LOW TESTOSTE AWA INTRAM USCULA R DISCONT INUED 10/18/2024 [id number] 4 [facility] 2023 2 [facility] TIOTROPIUM 2.5MCG/ACTU AT INHL,ORAL,6 0D,4GM INHALE TWO INHALATI ONS BY MOUTH EVERY DAY MAX OF TWO INHALATI ONS IN 24 HOURS. RESPIR ATORY (INHAL ATION) SUSPEND ED 11/20/2025 [id number] 5 Braeden DAVIS 2024 3 [facility] TIOTROPIUM 2.5MCG/ACTU AT INHL,ORAL,6 0D,4GM INHALE TWO INHALATI ONS BY MOUTH EVERY DAY MAX OF TWO INHALATI ONS IN 24 HOURS. RESPIR ATORY (INHAL ATION) DISCONT INUED 08/10/2025 [id number] 5 Adalberto MYERS 2024 3 [facility] TIOTROPIUM 2.5MCG/ACTU AT INHL,ORAL,6 0D,4GM INHALE TWO INHALATI ONS BY MOUTH EVERY DAY MAX OF TWO INHALATI ONS IN 24 HOURS. RESPIR ATORY (INHAL ATION) DISCONT INUED 04/27/2025 [id number] 5 KARYN PEDRAZA HAMCARLOS H 2023 3 [facility] TIOTROPIUM 2.5MCG/ACTU AT INHL,ORAL,6 0D,4GM INHALE TWO INHALATI ONS BY MOUTH EVERY DAY MAX OF TWO INHALATI ONS IN 24 HOURS. RESPIR ATORY (INHAL ATION) DISCONT INUED 05/04/2024 [id number] 4 KARYN PEDRAZA HAMAD H 2023 1 [facility] TRAZODONE HCL 100MG TAB TAKE FOUR TABLETS BY MOUTH AT BEDTIME FOR MENTAL HEALTH FOR SLEEP ORAL ACTIVE 09/06/2025 [id number] 5 MANJULA ROGERS 2024 360 [facility] TRAZODONE HCL 100MG TAB TAKE FOUR TABLETS BY MOUTH AT BEDTIME FOR SLEEP ORAL DISCONT INUED 2025 [id number] 5 AMANDREYTRE AN 2023 360 [facility] TRAZODONE HCL 100MG TAB TAKE FOUR TABLETS BY MOUTH AT BEDTIME FOR SLEEP ORAL DISCONT INUED 03/11/2024 [id number] TRE JONES 2022 360 [facility] TRIAMCINOLO NE ACETONIDE 0.1% CREAM,TOP APPLY THIN FILM TOPICALL Y TWICE A DAY TOPICA L SUSPEND ED 11/20/2025 [id number] 5 Braeden DAVIS 2024 80 [facility] TRIAMCINOLO NE ACETONIDE 0.1% CREAM,TOP APPLY THIN FILM TOPICALL Y TWICE A DAY TOPICA L DISCONT INUED 08/10/2025 [id number] 5 DO MEENU UGLAS R 2024 80 [facility] TRIAMCINOLO NE ACETONIDE 0.1% CREAM,TOP APPLY THIN FILM TOPICALL Y TWICE A DAY TOPICA L DISCONT INUED 04/14/2025 [id number] 5 DO MEENU UGLAS R 2023 80 [facility] TRIAMCINOLO NE ACETONIDE 0.1% CREAM,TOP APPLY THIN FILM TOPICALL Y TWICE A DAY TOPICA L DISCONT INUED 01/17/2025 [id number] 4 DO MEENU UGLAS R 2023 80 [facility] TRIAMCINOL[place] NE ACETONIDE 0.1% CREAM,TOP APPLY THIN FILM TOPICALL Y TWICE A DAY TOPICA L DISCONT INUED 08/23/2024 [id number] 4 DO MEENU UGLAS R 2023 80 [facility] Allergies, Adverse Reactions, Alerts Combined list of allergies from Department of Defense and Veterans Affairs facilities. It does not include entries that were removed or entered in error. Substance Category Reaction Severity Reaction type Status Date Reported Comments Source No Known Allergies Drug allergy (disorder) active 8 Blake CONNORS, STACIA Teixeira ORLISTAT Propensity to adverse reactions to drug (finding) Diarrhea MILD active 2 [facility] ORLIST[facility] Propensity to adverse reactions to drug (finding) Diarrhea active 4 [facility] Immunizations Combined list of available immunizations from the Department of Defense and Veterans Affairs facilities. Immunization Series Date Given Administered By Site Reaction Lot Number CVX Code Drug Lusterer Status Comments Source TDAP 2023 [place] RIGHT DELTO ID [id number] 115 complet ed [facility] [place] [facility] [place], UNSPECIFIED FORMULATION 2 2018 88 complet ed HISTORICA L INFORMATI ON - FROM OTHER REGISTRY, [facility] INFLUENZA, INJECTABLE, QUADRIVALENT 1 2017 158 complet ed HISTORICA L INFORMATI ON - FROM OTHER REGISTRY, [facility] typhoid Vi capsular polysaccharid e vaccine 1 2010 [id number] Unknown (UNK) comple t ed typhoid Vi capsular polysacch aride vaccine DoD influenza virus vaccine, live, attenuated, for intranasal use 1 2009 [id number] Unknown (UNK) comple t ed influenza virus vaccine, live, attenuate d, for intranasa l use DoD anthrax vaccine 4 2008 [id number] Unknown (UNK) comple t ed anthrax vaccine DoD Novel influenza-H1N 1-09, injectable 1 2008 [id number] 127 Unknown (UNK) complet ed Novel influenza -R2P2-36, injectabl e DoD influenza virus vaccine, split virus (incl. purified surface antigen)-reti red CODE 1 2008 [id number] Unknown (UNK) comple t ed influenza virus vaccine, split virus (incl. purified surface antigen)- retired CODE DoD tetanus and diphtheria toxoids, adsorbed, preservative free, for adult use (2 Lf of tetanus toxoid and 2 Lf of diphtheria toxoid) 1 2008 [id number] Unknown (UNK) comple t ed tetanus and diphtheri a toxoids, adsorbed, preservat lashanda free, for adult use (2 Lf of tetanus toxoid and 2 Lf of diphtheri a toxoid) DoD anthrax vaccine 3 2008 [id number] Unknown (UNK) comple t ed anthrax vaccine DoD hepatitis B vaccine, adult dosage 4 2008 [id number] 43 Unknown (UNK) complet ed hepatitis B vaccine, adult dosage DoD typhoid Vi capsular polysaccharid e vaccine 1 2008 [id number] 101 Unknown (UNK) comple t ed typhoid Vi capsular polysacch aride vaccine DoD HEP B, ADULT 1 2008 43 complet ed HISTORICA L INFORMATI ON - FROM PATIENT'S WRITTEN RECORD, [facility] anthrax vaccine 2 2008 [id number] [facility] complet ed anthrax vaccine DoD vaccinia (smallpox) vaccine 1 2007 UNK 75 [facility] ([facility]) complet ed vaccinia (smallpox ) vaccine DoD influenza virus vaccine, live, attenuated, for intranasal use 1 2007 [id number] [employer], [employer] (MED) complet ed influenza virus vaccine, live, attenuate d, for intranasa l use DoD anthrax vaccine 1 2007 UNK 24 [facility] complet ed anthrax vaccine DoD hepatitis A and hepatitis B vaccine 3 2007 [id number] 104 [employer] (SKB) complet ed hepatitis A and hepatitis B vaccine DoD HEP A-HEP B 3 2007 104 complet ed HISTORICA L INFORMATI ON - FROM PATIENT'S WRITTEN RECORD, [facility] typhoid Vi capsular polysaccharid e vaccine 1 2007 [id number] Sanofi Pasteur (PMC) complet ed typhoid Vi capsular polysacch aride vaccine DoD measles, mumps and rubella virus vaccine 1 2007 [id number] Merck (MSD) complet ed measles, mumps and rubella virus vaccine DoD hepatitis A and hepatitis B vaccine 2 2007 [id number] 104 [employer] (SKB) complet ed hepatitis A and hepatitis B vaccine DoD HEP A-HEP B 2 2007 104 complet ed HISTORICA L INFORMATI ON - FROM PATIENT'S WRITTEN RECORD, [facility] varicella virus vaccine 1 2007 UNK 21 Unknown (UNK) Not Given varicella virus vaccine DoD measles, mumps and rubella virus vaccine 1 2007 [id number] Merck (MSD) complet ed measles, mumps and rubella virus vaccine DoD influenza virus vaccine, split virus (incl. purified surface antigen)-reti red CODE 1 2007 UNK 15 [employer] (MED) complet ed influenza virus vaccine, split virus (incl. purified surface antigen)- retired CODE [facility] hepatitis A and hepatitis B vaccine 1 2007 [id number] 104 [employer] (SKB) complet ed hepatitis A and hepatitis B vaccine DoD HEP A-HEP B 1 2007 104 complet ed HISTORICA L INFORMATI ON - FROM PATIENT'S WRITTEN RECORD, [facility] poliovirus vaccine, inactivated 1 2007 [id number] Sanofi Pasteur (PMC) complet ed polioviru s vaccine, inactivat ed DoD meningococcal polysaccharid e (groups A, C, Y and W-135) diphtheria toxoid conjugate vaccine (MCV4P) 1 2007 [id number] Sanofi Pasteur (PMC) complet ed meningoco ccal polysacch aride (groups A, C, Y and W-135) diphtheri a toxoid conjugate vaccine (MCV4P) DoD tetanus toxoid, reduced diphtheria toxoid, and acellular pertu is vaccine, adsorbed 1 2007 [id number] Sanofi Pasteur (PMC) complet ed tetanus toxoid, reduced diphtheri a toxoid, and acellular pertussis vaccine, adsorbed DoD TD (ADULT), 2 LF TETANUS TOXOID, PRESERVATIVE FREE, ADSORBED 1 2001 09 complet ed HISTORICA L INFORMATI ON - FROM OTHER REGISTRY, [facility] HEP B, ADOLESCENT OR PEDIATRIC 3 1997 08 complet ed HISTORICA L INFORMATI ON - FROM OTHER REGISTRY, [facility] HEP B, ADOLESCENT OR PEDIATRIC 2 1997 08 complet ed HISTORICA L INFORMATI ON - FROM OTHER REGISTRY, [facility] HEP B, ADOLESCENT OR PEDIATRIC 1 1997 08 complet ed HISTORICA L INFORMATI ON - FROM OTHER REGISTRY, [facility] DTP 5 1991 01 complet ed HISTORICA L INFORMATI ON - FROM OTHER REGISTRY, [facility] MMR 2 1991 03 complet ed HISTORICA L INFORMATI ON - FROM OTHER REGISTRY, [facility] TRIVALENT OPV 4 1991 02 complet ed HISTORICA L INFORMATI ON - FROM OTHER REGISTRY, [facility] DTP 4 1989 01 complet ed HISTORICA L INFORMATI ON - FROM OTHER REGISTRY, [facility] HIB, UNSPECIFIED FORMULATION 1 1989 17 complet ed HISTORICA L INFORMATI ON - FROM OTHER REGISTRY, [facility] TRIVALENT OPV 3 1989 02 complet ed HISTORICA L INFORMATI ON - FROM OTHER REGISTRY, [facility] MMR 1 1988 03 complet ed HISTORICA L INFORMATI ON - FROM OTHER REGISTRY, [facility] DTP 3 1988 01 complet ed HISTORICA L INFORMATI ON - FROM OTHER REGISTRY, [facility] DTP 2 1987 complet ed HISTORICA L INFORMATI ON - FROM OTHER REGISTRY, [facility] TRIVALENT OPV 2 1987 02 complet ed HISTORICA L INFORMATI ON - FROM OTHER REGISTRY, [facility] DTP 1 1987 complet ed HISTORICA L INFORMATI ON - FROM OTHER REGISTRY, [facility] TRIVALENT OPV 1 1987 02 complet ed HISTORICA L INFORMATI ON - FROM OTHER REGISTRY, [facility] Results Combined list of recent chemistry, hematology and other laboratory results from [employer] and [employer], ranging from 15 months to all on record, depending upon the facility. Order Name Results Value Reference Range Date Interpretation Specimen Comments Source TOTAL TESTOST II TESTOSTERO NE [MASS/VOLU ME] IN SERUM OR PLASMA 553 ng/dL 246 - 916 08/23 Specimen Type: SERUM No comment entered. Ordering Provider: BENITEZ MYERS Report Released Date/Time: Aug 23, 2024 03:20 PM Reporting Lab: [facility] [address] [facility] [address] Performing Lab: [facility] [address] [place] [address] [facility] A1C % HEMOGLOBIN A1C/HEMOGL OBIN.TOTAL IN BLOOD 5.1 0.0 - 5.6 08/23 Specimen Type: BLOOD Comment: Normal: < or = 5.6% Pre-diabete s: 5.7-6.4% Diabetes Mellitus: > or = 6.5% Values obtained from A1C measurement s can vary. For typical A1C assays, a reported value of 7.0 could actually be between 6.72 and 7.28 if measured by a reference method. A reported value of 9.0 could actually be between 8.73 and 9.27. Ref: http://www. ngsp.org/[place] Pdata.asp Ordering Provider: CARIN CORRIGAN Report Released Date/Time: Aug 23, 2023 03:50 PM Reporting Lab: [address] [address] Performing Lab: [address] [address] [facility] THYROID CASCADE PANEL THYROTROPI N [UNITS/VOL UME] IN SERUM OR PLASMA 1.292 u[IU]/mL 0.550 - 4.780 08/23 Specimen Type: SERUM Comment: Deficiency <20, Insufficien cy 20-30, Sufficiency 30-100, Toxicity >100 ng/mL Ordering Provider: CARIN CORRIGAN Report Released Date/Time: Aug 23, 2023 03:50 PM Reporting Lab: [address] [address] Performing Lab: [address] [address] [facility] LIPID PNL CHOLESTERO L IN HDL [MASS/VOLU ME] IN SERUM OR PLASMA 44 mg/dL 60 08/23 L Specimen Type: PLASMA Comment: Low-risk levels (desirable) <200 mg/dL Moderate-ri sk levels (borderline ) 200-239 mg/dL High-risk levels: >= 240 mg/dL Normal: <150 mg/dL -Borderline High: 150-199 mg/dL -High: 200-499 mg/dL -Very High: >500 mg/dL eGFR was calculated using the CKD-EPI Creatinine (2020) equation. Optimal: <100 mg/dL -Near Optimal/Abo ve Optimal: 100-129 mg/dL -Borderline High: 130-159 mg/dL -High: 160-189 mg/dL -Very High: >=190 mg/dL Ordering Provider: CARIN CORRIGAN Report Released Date/Time: Aug 23, 2023 03:50 PM Reporting Lab: [address] [address] Performing Lab: [address] [address] [facility] LIPID PNL TRIGLYCERI DE [MASS/VOLU ME] IN SERUM OR PLASMA 148 mg/dL 08/23 Specimen Type: PLASMA Comment: Low-risk levels (desirable) <200 mg/dL Moderate-ri sk levels (borderline ) 200-239 mg/dL High-risk levels: >= 240 mg/dL Normal: <150 mg/dL -Borderline High: 150-199 mg/dL -High: 200-499 mg/dL -Very High: >500 mg/dL eGFR was calculated using the CKD-EPI Creatinine (2020) equation. Optimal: <100 mg/dL -Near Optimal/Abo ve Optimal: 100-129 mg/dL -Borderline High: 130-159 mg/dL -High: 160-189 mg/dL -Very High: >=190 mg/dL Ordering Provider: CARIN CORRIGAN Report Released Date/Time: Aug 23, 2023 03:50 PM Reporting Lab: [address] [address] Performing Lab: [address] [address] [facility] LIPID PNL CHOLESTERO L IN LDL [MASS/VOLU ME] IN SERUM OR PLASMA BY DIRECT ASSAY [facility] 08/23 Specimen Type: PLASMA Comment: Low-risk levels (desirable) <200 mg/dL Moderate-ri sk levels (borderline ) 200-239 mg/dL High-risk levels: >= 240 mg/dL Normal: <150 mg/dL -Borderline High: 150-199 mg/dL -High: 200-499 mg/dL -Very High: >500 mg/dL eGFR was calculated using the CKD-EPI Creatinine (2020) equation. Optimal: <100 mg/dL -Near Optimal/Abo ve Optimal: 100-129 mg/dL -Borderline High: 130-159 mg/dL -High: 160-189 mg/dL -Very High: >=190 mg/dL Ordering Provider: CARIN CORRIGAN Report Released Date/Time: Aug 23, 2023 03:50 PM Reporting Lab: [address] [address] Performing Lab: [address] [address] [facility] LIPID PNL CHOLESTERO L [MASS/VOLU ME] IN SERUM OR PLASMA 144 mg/dL 08/23 Specimen Type: PLASMA Comment: Low-risk levels (desirable) <200 mg/dL Moderate-ri sk levels (borderline ) 200-239 mg/dL High-risk levels: >= 240 mg/dL Normal: <150 mg/dL -Borderline High: 150-199 mg/dL -High: 200-499 mg/dL -Very High: >500 mg/dL eGFR was calculated using the CKD-EPI Creatinine (2020) equation. Optimal: <100 mg/dL -Near Optimal/Abo ve Optimal: 100-129 mg/dL -Borderline High: 130-159 mg/dL -High: 160-189 mg/dL -Very High: >=190 mg/dL Ordering Provider: CARIN CORRIGAN Report Released Date/Time: Aug 23, 2023 03:50 PM Reporting Lab: [address] [address] Performing Lab: [address] [address] [facility] LIPID PNL CHOLESTERO L IN LDL [MASS/VOLU ME] IN SERUM OR PLASMA BY CALCULATIO N 70 mg/dL 08/23 Specimen Type: PLASMA Comment: Low-risk levels (desirable) <200 mg/dL Moderate-ri sk levels (borderline ) 200-239 mg/dL High-risk levels: >= 240 mg/dL Normal: <150 mg/dL -Borderline High: 150-199 mg/dL -High: 200-499 mg/dL -Very High: >500 mg/dL eGFR was calculated using the CKD-EPI Creatinine (2020) equation. Optimal: <100 mg/dL -Near Optimal/Abo ve Optimal: 100-129 mg/dL -Borderline High: 130-159 mg/dL -High: 160-189 mg/dL -Very High: >=190 mg/dL Ordering Provider: CARIN CORRIGAN Report Released Date/Time: Aug 23, 2023 03:50 PM Reporting Lab: [address] [address] Performing Lab: [address] [address] [facility] UA W/ MICRO GLUCOSE [MASS/VOLU ME] IN URINE BY TEST STRIP Negative mg/dL 08/23 Specimen Type: URINE Comment: Microscopic not performed when urine is clear and is negative for blood, nitrite, leukocyte esterase, and < 30 mg/dL protein. Ordering Provider: CARIN CORRIGAN Report Released Date/Time: Aug 23, 2023 03:50 PM Reporting Lab: [address] [address] Performing Lab: [address] [address] [facility] UA W/ MICRO PROTEIN [MASS/VOLU ME] IN URINE BY TEST STRIP Negative mg/dL 08/23 Specimen Type: URINE Comment: Microscopic not performed when urine is clear and is negative for blood, nitrite, leukocyte esterase, and < 30 mg/dL protein. Ordering Provider: CARIN CORRIGAN Report Released Date/Time: Aug 23, 2023 03:50 PM Reporting Lab: [address] [address] Performing Lab: [address] [address] [facility] UA W/ MICRO BILIRUBIN. TOTAL [PRESENCE] IN URINE BY TEST STRIP Negative 08/23 Specimen Type: URINE Comment: Microscopic not performed when urine is clear and is negative for blood, nitrite, leukocyte esterase, and < 30 mg/dL protein. Ordering Provider: CARIN CORRIGAN Report Released Date/Time: Aug 23, 2023 03:50 PM Reporting Lab: [address] [address] Performing Lab: [address] [address] [facility] UA W/ MICRO UROBILINOG EN [MASS/VOLU ME] IN URINE BY TEST STRIP <2.0mg/d L < 2.0 - 2.0 08/23 Specimen Type: URINE Comment: Microscopic not performed when urine is clear and is negative for blood, nitrite, leukocyte esterase, and < 30 mg/dL protein. Ordering Provider: CARIN CORRIGAN Report Released Date/Time: Aug 23, 2023 03:50 PM Reporting Lab: [address] [address] Performing Lab: [address] [address] [facility] UA W/ MICRO PH OF URINE BY TEST STRIP 7.5 5.0 - 8.0 08/23 Specimen Type: URINE Comment: Microscopic not performed when urine is clear and is negative for blood, nitrite, leukocyte esterase, and < 30 mg/dL protein. Ordering Provider: CARIN CORRIGAN Report Released Date/Time: Aug 23, 2023 03:50 PM Reporting Lab: [address] [address] Performing Lab: [address] [address] [facility] UA W/ MICRO HEMOGLOBIN [PRESENCE] IN URINE BY TEST STRIP Negative 08/23 Specimen Type: URINE Comment: Microscopic not performed when urine is clear and is negative for blood, nitrite, leukocyte esterase, and < 30 mg/dL protein. Ordering Provider: CARIN CORRIGAN Report Released Date/Time: Aug 23, 2023 03:50 PM Reporting Lab: [address] [address] Performing Lab: [address] [address] [facility] UA W/ MICRO KETONES [MASS/VOLU ME] IN URINE BY TEST STRIP Negative mg/dL 08/23 Specimen Type: URINE Comment: Microscopic not performed when urine is clear and is negative for blood, nitrite, leukocyte esterase, and < 30 mg/dL protein. Ordering Provider: CARIN CORRIGAN Report Released Date/Time: Aug 23, 2023 03:50 PM Reporting Lab: [address] [address] Performing Lab: [address] [address] [facility] UA W/ MICRO NITRITE [PRESENCE] IN URINE BY TEST STRIP Negative 08/23 Specimen Type: URINE Comment: Microscopic not performed when urine is clear and is negative for blood, nitrite, leukocyte esterase, and < 30 mg/dL protein. Ordering Provider: CARIN CORRIGAN Report Released Date/Time: Aug 23, 2023 03:50 PM Reporting Lab: [address] [address] Performing Lab: [address] [address] [facility] UA W/ MICRO LEUKOCYTE ESTERASE [PRESENCE] IN URINE BY TEST STRIP Negative 08/23 Specimen Type: URINE Comment: Microscopic not performed when urine is clear and is negative for blood, nitrite, leukocyte esterase, and < 30 mg/dL protein. Ordering Provider: CARIN CORRIGAN Report Released Date/Time: Aug 23, 2023 03:50 PM Reporting Lab: [address] [address] Performing Lab: [address] [address] [facility] UA W/ MICRO CLARITY OF URINE Clear 08/23 Specimen Type: URINE Comment: Microscopic not performed when urine is clear and is negative for blood, nitrite, leukocyte esterase, and < 30 mg/dL protein. Ordering Provider: CARIN CORRIGAN Report Released Date/Time: Aug 23, 2023 03:50 PM Reporting Lab: [address] [address] Performing Lab: [address] [address] [facility] UA W/ MICRO SPECIFIC GRAVITY OF URINE BY TEST STRIP 1.022 1.005 - 1.030 08/23 Specimen Type: URINE Comment: Microscopic not performed when urine is clear and is negative for blood, nitrite, leukocyte esterase, and < 30 mg/dL protein. Ordering Provider: CARIN CORRIGAN Report Released Date/Time: Aug 23, 2023 03:50 PM Reporting Lab: [address] [address] Performing Lab: [address] [address] [facility] UA W/ MICRO COLOR OF URINE BY AUTO Light Yellow 08/23 Specimen Type: URINE Comment: Microscopic not performed when urine is clear and is negative for blood, nitrite, leukocyte esterase, and < 30 mg/dL protein. Ordering Provider: CARIN CORRIGAN Report Released Date/Time: Aug 23, 2023 03:50 PM Reporting Lab: [address] [address] Performing Lab: [address] [address] [facility] COMPREHE NSIVE PNL ANION GAP IN SERUM OR PLASMA 9 mmol/L 5 - 15 08/23 Specimen Type: PLASMA Comment: Low-risk levels (desirable) <200 mg/dL Moderate-ri sk levels (borderline ) 200-239 mg/dL High-risk levels: >= 240 mg/dL Normal: <150 mg/dL -Borderline High: 150-199 mg/dL -High: 200-499 mg/dL -Very High: >500 mg/dL eGFR was calculated using the CKD-EPI Creatinine (2020) equation. Optimal: <100 mg/dL -Near Optimal/Abo ve Optimal: 100-129 mg/dL -Borderline High: 130-159 mg/dL -High: 160-189 mg/dL -Very High: >=190 mg/dL Ordering Provider: CARIN CORRIGAN Report Released Date/Time: Aug 23, 2023 03:50 PM Reporting Lab: [address] [address] Performing Lab: [address] [address] [facility] COMPREHE NSIVE PNL GLOMERULAR FILTRATION RATE/1.73 SQ M.PREDICTE D [VOLUME RATE/AREA] IN SERUM, PLASMA OR BLOOD BY CREATININE -BASED FORMULA (CKD-EPI 2020) 81 mL/min/{ 1.73_m2} 60 08/23 Specimen Type: PLASMA Comment: Low-risk levels (desirable) <200 mg/dL Moderate-ri sk levels (borderline ) 200-239 mg/dL High-risk levels: >= 240 mg/dL Normal: <150 mg/dL -Borderline High: 150-199 mg/dL -High: 200-499 mg/dL -Very High: >500 mg/dL eGFR was calculated using the CKD-EPI Creatinine (2020) equation. Optimal: <100 mg/dL -Near Optimal/Abo ve Optimal: 100-129 mg/dL -Borderline High: 130-159 mg/dL -High: 160-189 mg/dL -Very High: >=190 mg/dL Ordering Provider: CARIN CORRIGAN Report Released Date/Time: Aug 23, 2023 03:50 PM Reporting Lab: [address] [address] Performing Lab: [address] [address] [facility] COMPREHE NSIVE PNL GLUCOSE [MASS/VOLU ME] IN SERUM OR PLASMA 85 mg/dL 70 - 99 08/23 Specimen Type: PLASMA Comment: Low-risk levels (desirable) <200 mg/dL Moderate-ri sk levels (borderline ) 200-239 mg/dL High-risk levels: >= 240 mg/dL Normal: <150 mg/dL -Borderline High: 150-199 mg/dL -High: 200-499 mg/dL -Very High: >500 mg/dL eGFR was calculated using the CKD-EPI Creatinine (2020) equation. Optimal: <100 mg/dL -Near Optimal/Abo ve Optimal: 100-129 mg/dL -Borderline High: 130-159 mg/dL -High: 160-189 mg/dL -Very High: >=190 mg/dL Ordering Provider: CARIN CORRIGAN Report Released Date/Time: Aug 23, 2023 03:50 PM Reporting Lab: [place] [phone] Performing Lab: [place] [address] [facility] COMPREHE NSIVE PNL POTASSIUM [MOLES/VOL UME] IN SERUM OR PLASMA 4.4 mmol/L 3.5 - 4.7 08/23 Specimen Type: PLASMA Comment: Low-risk levels (desirable) <200 mg/dL Moderate-ri sk levels (borderline ) 200-239 mg/dL High-risk levels: >= 240 mg/dL Normal: <150 mg/dL -Borderline High: 150-199 mg/dL -High: 200-499 mg/dL -Very High: >500 mg/dL eGFR was calculated using the CKD-EPI Creatinine (2020) equation. Optimal: <100 mg/dL -Near Optimal/Abo ve Optimal: 100-129 mg/dL -Borderline High: 130-159 mg/dL -High: 160-189 mg/dL -Very High: >=190 mg/dL Ordering Provider: CARIN CORRIGAN Report Released Date/Time: Aug 23, 2023 03:50 PM Reporting Lab: [address] [address] Performing Lab: [address] [address] [facility] COMPREHE NSIVE PNL SODIUM [MOLES/VOL UME] IN SERUM OR PLASMA 141 mmol/L 136 - 145 08/23 Specimen Type: PLASMA Comment: Low-risk levels (desirable) <200 mg/dL Moderate-ri sk levels (borderline ) 200-239 mg/dL High-risk levels: >= 240 mg/dL Normal: <150 mg/dL -Borderline High: 150-199 mg/dL -High: 200-499 mg/dL -Very High: >500 mg/dL eGFR was calculated using the CKD-EPI Creatinine (2020) equation. Optimal: <100 mg/dL -Near Optimal/Abo ve Optimal: 100-129 mg/dL -Borderline High: 130-159 mg/dL -High: 160-189 mg/dL -Very High: >=190 mg/dL Ordering Provider: CARIN CORRIGAN Report Released Date/Time: Aug 23, 2023 03:50 PM Reporting Lab: [place] [phone] Performing Lab: [place] [address] [facility] COMPREHE NSIVE PNL BILIRUBIN. TOTAL [MASS/VOLU ME] IN SERUM OR PLASMA 0.4 mg/dL 0.2 - 1.2 08/23 Specimen Type: PLASMA Comment: Low-risk levels (desirable) <200 mg/dL Moderate-ri sk levels (borderline ) 200-239 mg/dL High-risk levels: >= 240 mg/dL Normal: <150 mg/dL -Borderline High: 150-199 mg/dL -High: 200-499 mg/dL -Very High: >500 mg/dL eGFR was calculated using the CKD-EPI Creatinine (2020) equation. Optimal: <100 mg/dL -Near Optimal/Abo ve Optimal: 100-129 mg/dL -Borderline High: 130-159 mg/dL -High: 160-189 mg/dL -Very High: >=190 mg/dL Ordering Provider: CARIN CORRIGAN Report Released Date/Time: Aug 23, 2023 03:50 PM Reporting Lab: [address] [address] Performing Lab: [address] [address] [facility] COMPREHE NSIVE PNL PROTEIN [MASS/VOLU ME] IN SERUM OR PLASMA 7.1 g/dL 5.7 - 8.2 08/23 Specimen Type: PLASMA Comment: Low-risk levels (desirable) <200 mg/dL Moderate-ri sk levels (borderline ) 200-239 mg/dL High-risk levels: >= 240 mg/dL Normal: <150 mg/dL -Borderline High: 150-199 mg/dL -High: 200-499 mg/dL -Very High: >500 mg/dL eGFR was calculated using the CKD-EPI Creatinine (2020) equation. Optimal: <100 mg/dL -Near Optimal/Abo ve Optimal: 100-129 mg/dL -Borderline High: 130-159 mg/dL -High: 160-189 mg/dL -Very High: >=190 mg/dL Ordering Provider: CARIN CORRIGAN Report Released Date/Time: Aug 23, 2023 03:50 PM Reporting Lab: [place] [phone] Performing Lab: [place] [address] [facility] COMPREHE NSIVE PNL ALBUMIN [MASS/VOLU ME] IN SERUM OR PLASMA 4.7 g/dL 3.4 - 5.0 08/23 Specimen Type: PLASMA Comment: Low-risk levels (desirable) <200 mg/dL Moderate-ri sk levels (borderline ) 200-239 mg/dL High-risk levels: >= 240 mg/dL Normal: <150 mg/dL -Borderline High: 150-199 mg/dL -High: 200-499 mg/dL -Very High: >500 mg/dL eGFR was calculated using the CKD-EPI Creatinine (2020) equation. Optimal: <100 mg/dL -Near Optimal/Abo ve Optimal: 100-129 mg/dL -Borderline High: 130-159 mg/dL -High: 160-189 mg/dL -Very High: >=190 mg/dL Ordering Provider: CARIN CORRIGAN Report Released Date/Time: Aug 23, 2023 03:50 PM Reporting Lab: [address] [address] Performing Lab: [address] [address] [facility] COMPREHE NSIVE PNL ALKALINE PHOSPHATAS E [ENZYMATIC ACTIVITY/V OLUME] IN SERUM OR PLASMA 69 U/L 45 - 117 08/23 Specimen Type: PLASMA Comment: Low-risk levels (desirable) <200 mg/dL Moderate-ri sk levels (borderline ) 200-239 mg/dL High-risk levels: >= 240 mg/dL Normal: <150 mg/dL -Borderline High: 150-199 mg/dL -High: 200-499 mg/dL -Very High: >500 mg/dL eGFR was calculated using the CKD-EPI Creatinine (2020) equation. Optimal: <100 mg/dL -Near Optimal/Abo ve Optimal: 100-129 mg/dL -Borderline High: 130-159 mg/dL -High: 160-189 mg/dL -Very High: >=190 mg/dL Ordering Provider: CARIN CORRIGAN Report Released Date/Time: Aug 23, 2023 03:50 PM Reporting Lab: [address] [address] Performing Lab: [place] [phone] [facility] COMPREH NSIVE PNL ALANINE AMINOTRANS FERASE [ENZYMATIC ACTIVITY/V OLUME] IN SERUM OR PLASMA 31 U/L 10 - 65 08/23 Specimen Type: PLASMA Comment: Low-risk levels (desirable) <200 mg/dL Moderate-ri sk levels (borderline ) 200-239 mg/dL High-risk levels: >= 240 mg/dL Normal: <150 mg/dL -Borderline High: 150-199 mg/dL -High: 200-499 mg/dL -Very High: >500 mg/dL eGFR was calculated using the CKD-EPI Creatinine (2020) equation. Optimal: <100 mg/dL -Near Optimal/Abo ve Optimal: 100-129 mg/dL -Borderline High: 130-159 mg/dL -High: 160-189 mg/dL -Very High: >=190 mg/dL Ordering Provider: CARIN CORRIGAN Report Released Date/Time: Aug 23, 2023 03:50 PM Reporting Lab: [address] [address] Performing Lab: [address] [address] [facility] COMPREHE NSIVE PNL ASPARTATE AMINOTRANS FERASE [ENZYMATIC ACTIVITY/V OLUME] IN SERUM OR PLASMA 41 U/L 10 - 37 08/23 H Specimen Type: PLASMA Comment: Low-risk levels (desirable) <200 mg/dL Moderate-ri sk levels (borderline ) 200-239 mg/dL High-risk levels: >= 240 mg/dL Normal: <150 mg/dL -Borderline High: 150-199 mg/dL -High: 200-499 mg/dL -Very High: >500 mg/dL eGFR was calculated using the CKD-EPI Creatinine (2020) equation. Optimal: <100 mg/dL -Near Optimal/Abo ve Optimal: 100-129 mg/dL -Borderline High: 130-159 mg/dL -High: 160-189 mg/dL -Very High: >=190 mg/dL Ordering Provider: CARIN CORRIGAN Report Released Date/Time: Aug 23, 2023 03:50 PM Reporting Lab: [address] [address] Performing Lab: [address] [address] [facility] COMPREHE NSIVE PNL UREA NITROGEN [MASS/VOLU ME] IN SERUM OR PLASMA 15 mg/dL 7 - 21 08/23 Specimen Type: PLASMA Comment: Low-risk levels (desirable) <200 mg/dL Moderate-ri sk levels (borderline ) 200-239 mg/dL High-risk levels: >= 240 mg/dL Normal: <150 mg/dL -Borderline High: 150-199 mg/dL -High: 200-499 mg/dL -Very High: >500 mg/dL eGFR was calculated using the CKD-EPI Creatinine (2020) equation. Optimal: <100 mg/dL -Near Optimal/Abo ve Optimal: 100-129 mg/dL -Borderline High: 130-159 mg/dL -High: 160-189 mg/dL -Very High: >=190 mg/dL Ordering Provider: CARIN CORRIGAN Report Released Date/Time: Aug 23, 2023 03:50 PM Reporting Lab: [address] [address] Performing Lab: [address] [address] [facility] COMPREHE NSIVE PNL CALCIUM, TOTAL 9.7 mg/dL 8.7 - 10.4 08/23 Specimen Type: PLASMA Comment: Low-risk levels (desirable) <200 mg/dL Moderate-ri sk levels (borderline ) 200-239 mg/dL High-risk levels: >= 240 mg/dL Normal: <150 mg/dL -Borderline High: 150-199 mg/dL -High: 200-499 mg/dL -Very High: >500 mg/dL eGFR was calculated using the CKD-EPI Creatinine (2020) equation. Optimal: <100 mg/dL -Near Optimal/Abo ve Optimal: 100-129 mg/dL -Borderline High: 130-159 mg/dL -High: 160-189 mg/dL -Very High: >=190 mg/dL Ordering Provider: CARIN CORRIGAN Report Released Date/Time: Aug 23, 2023 03:50 PM Reporting Lab: [address] [address] Performing Lab: [place] [phone] [facility] COMPREHE NSIVE PNL CARBON DIOXIDE, TOTAL [MOLES/VOL UME] IN SERUM OR PLASMA 31 mmol/L 21 - 32 08/23 Specimen Type: PLASMA Comment: Low-risk levels (desirable) <200 mg/dL Moderate-ri sk levels (borderline ) 200-239 mg/dL High-risk levels: >= 240 mg/dL Normal: <150 mg/dL -Borderline High: 150-199 mg/dL -High: 200-499 mg/dL -Very High: >500 mg/dL eGFR was calculated using the CKD-EPI Creatinine (2020) equation. Optimal: <100 mg/dL -Near Optimal/Abo ve Optimal: 100-129 mg/dL -Borderline High: 130-159 mg/dL -High: 160-189 mg/dL -Very High: >=190 mg/dL Ordering Provider: CARIN CORRIGAN Report Released Date/Time: Aug 23, 2023 03:50 PM Reporting Lab: [address] [address] Performing Lab: [address] [address] [facility] COMPREHE NSIVE PNL CHLORIDE [MOLES/VOL UME] IN SERUM OR PLASMA 101 mmol/L 98 - 109 08/23 Specimen Type: PLASMA Comment: Low-risk levels (desirable) <200 mg/dL Moderate-ri sk levels (borderline ) 200-239 mg/dL High-risk levels: >= 240 mg/dL Normal: <150 mg/dL -Borderline High: 150-199 mg/dL -High: 200-499 mg/dL -Very High: >500 mg/dL eGFR was calculated using the CKD-EPI Creatinine (2020) equation. Optimal: <100 mg/dL -Near Optimal/Abo ve Optimal: 100-129 mg/dL -Borderline High: 130-159 mg/dL -High: 160-189 mg/dL -Very High: >=190 mg/dL Ordering Provider: CARIN CORRIGAN Report Released Date/Time: Aug 23, 2023 03:50 PM Reporting Lab: [address] [address] Performing Lab: [place] [phone] [facility] COMPREHE NSIVE PNL CREATININE [MASS/VOLU ME] IN URINE 1.19 mg/dL 0.73 - 1.18 08/23 H Specimen Type: PLASMA Comment: Low-risk levels (desirable) <200 mg/dL Moderate-ri sk levels (borderline ) 200-239 mg/dL High-risk levels: >= 240 mg/dL Normal: <150 mg/dL -Borderline High: 150-199 mg/dL -High: 200-499 mg/dL -Very High: >500 mg/dL eGFR was calculated using the CKD-EPI Creatinine (2020) equation. Optimal: <100 mg/dL -Near Optimal/Abo ve Optimal: 100-129 mg/dL -Borderline High: 130-159 mg/dL -High: 160-189 mg/dL -Very High: >=190 mg/dL Ordering Provider: CARIN CORRIGAN Report Released Date/Time: Aug 23, 2023 03:50 PM Reporting Lab: [address] [address] Performing Lab: [address] [address] [facility] CBC W/DIFF LEUKOCYTES [#/VOLUME] IN BLOOD BY AUTOMATED COUNT 8.3 10*3/uL 4.0 - 11.0 08/23 Specimen Type: BLOOD No comment entered. Ordering Provider: CARIN CORRIGAN Report Released Date/Time: Aug 23, 2023 03:50 PM Reporting Lab: [address] [address] Performing Lab: [address] [address] [facility] CBC W/DIFF ERYTHROCYT ES [#/VOLUME] IN BLOOD BY AUTOMATED COUNT 5.54 10*6/uL 4.20 - 5.70 08/23 Specimen Type: BLOOD No comment entered. Ordering Provider: CARIN CORRIGAN Report Released Date/Time: Aug 23, 2023 03:50 PM Reporting Lab: [address] [address] Performing Lab: [address] [address] [facility] CBC W/DIFF HEMOGLOBIN [MASS/VOLU ME] IN BLOOD 16.2 g/dL 13.0 - 17.0 08/23 Specimen Type: BLOOD No comment entered. Ordering Provider: CARIN CORRIGAN Report Released Date/Time: Aug 23, 2023 03:50 PM Reporting Lab: [address] [address] Performing Lab: [address] [address] [facility] CBC W/DIFF HEMATOCRIT [VOLUME FRACTION] OF BLOOD BY AUTOMATED COUNT 47.3 40.0 - 51.0 08/23 Specimen Type: BLOOD No comment entered. Ordering Provider: CARIN CORRIGAN Report Released Date/Time: Aug 23, 2023 03:50 PM Reporting Lab: [address] [address] Performing Lab: [address] [address] [facility] CBC W/DIFF MCV [ENTITIC VOLUME] BY AUTOMATED COUNT 85.4 fL 82.0 - 99.0 08/23 Specimen Type: BLOOD No comment entered. Ordering Provider: CARIN CORRIGAN Report Released Date/Time: Aug 23, 2023 03:50 PM Reporting Lab: [place] [address] [facility] [address] Performing Lab: [facility] [address] [facility] [address] [facility] CBC W/DIFF MCHC [MASS/VOLU ME] BY AUTOMATED COUNT 29.2 pg 27.0 - 34.0 08/23 Specimen Type: BLOOD No comment entered. Ordering Provider: CARIN CORRIGAN Report Released Date/Time: Aug 23, 2023 03:50 PM Reporting Lab: [facility] [address] [place] [phone] Performing Lab: [facility] [address] [place] [address] [facility] CBC W/DIFF MCHC [MASS/VOLU ME] BY AUTOMATED COUNT 34.2 g/dL 31.0 - 37.0 08/23 Specimen Type: BLOOD No comment entered. Ordering Provider: CARIN CORRIGAN Report Released Date/Time: Aug 23, 2023 03:50 PM Reporting Lab: [facility] [address] [place] [phone] Performing Lab: [facility] [address] [place] [phone] [facility] CBC W/DIFF PLATELET MEAN VOLUME [ENTITIC VOLUME] IN BLOOD BY AUTOMATED COUNT 10.1 fL 8.0 - 12.0 08/23 Specimen Type: BLOOD No comment entered. Ordering Provider: CARIN CORRIGAN Report Released Date/Time: Aug 23, 2023 03:50 PM Reporting Lab: [facility] [address] [place] [phone] Performing Lab: [facility] [address] [facility] [address] [facility] CBC W/DIFF PLATELETS [#/VOLUME] IN BLOOD BY AUTOMATED COUNT 369 10*3/uL 130 - 400 08/23 Specimen Type: BLOOD No comment entered. Ordering Provider: CARIN CORRIGAN Report Released Date/Time: Aug 23, 2023 03:50 PM Reporting Lab: [facility] [address] [place] [phone] Performing Lab: [facility] [address] [place] [phone] [facility] CBC W/DIFF ERYTHROCYT E DISTRIBUTI ON WIDTH [RATIO] BY AUTOMATED COUNT 12.2 < 15.0 - 15.0 08/23 Specimen Type: BLOOD No comment entered. Ordering Provider: CARIN CORRIGAN Report Released Date/Time: Aug 23, 2023 03:50 PM Reporting Lab: [facility] [address] [facility] [address] Performing Lab: [facility] [address] [place] [phone] [facility] CBC W/DIFF NEUTROPHIL S/100 LEUKOCYTES IN BLOOD BY AUTOMATED COUNT 58.7 08/23 Specimen Type: BLOOD No comment entered. Ordering Provider: CARIN CORRIGAN Report Released Date/Time: Aug 23, 2023 03:50 PM Reporting Lab: [address] [address] Performing Lab: [address] [address] [facility] CBC W/DIFF LYMPHOCYTE S/100 LEUKOCYTES IN BLOOD BY AUTOMATED COUNT 22.9 08/23 Specimen Type: BLOOD No comment entered. Ordering Provider: CARIN CORRIGAN Report Released Date/Time: Aug 23, 2023 03:50 PM Reporting Lab: [facility] [address] [place] [phone] Performing Lab: [address] [address] [facility] CBC W/DIFF MONOCYTES/ 100 LEUKOCYTES IN BLOOD BY AUTOMATED COUNT 12.7 08/23 Specimen Type: BLOOD No comment entered. Ordering Provider: CARIN CORRIGAN Report Released Date/Time: Aug 23, 2023 03:50 PM Reporting Lab: [facility] [address] [place] [phone] Performing Lab: [facility] [address] [place] [phone] [facility] CBC W/DIFF EOSINOPHIL S/100 LEUKOCYTES IN BLOOD BY AUTOMATED COUNT 3.4 08/23 Specimen Type: BLOOD No comment entered. Ordering Provider: CARNI CORRIGAN Report Released Date/Time: Aug 23, 2023 03:50 PM Reporting Lab: [address] [address] Performing Lab: [address] [address] [facility] CBC W/DIFF BASOPHILS/ 100 LEUKOCYTES IN BLOOD BY AUTOMATED COUNT 1.1 08/23 Specimen Type: BLOOD No comment entered. Ordering Provider: CARIN CORRIGAN Report Released Date/Time: Aug 23, 2023 03:50 PM Reporting Lab: [address] [address] Performing Lab: [address] [address] [facility] CBC W/DIFF IMMATURE GRANULOCYT ES/100 LEUKOCYTES IN BLOOD 1.2 08/23 Specimen Type: BLOOD No comment entered. Ordering Provider: CARIN CORRIGAN Report Released Date/Time: Aug 23, 2023 03:50 PM Reporting Lab: [address] [address] Performing Lab: [address] [address] [facility] CBC W/DIFF NEUTROPHIL S [#/VOLUME] IN BLOOD BY AUTOMATED COUNT 4.9 10*3/uL 1.5 - 8.0 08/23 Specimen Type: BLOOD No comment entered. Ordering Provider: CARIN CORRIGAN Report Released Date/Time: Aug 23, 2023 03:50 PM Reporting Lab: [address] [address] Performing Lab: [address] [address] [facility] CBC W/DIFF LYMPHOCYTE S [#/VOLUME] IN BLOOD BY AUTOMATED COUNT 1.9 10*3/uL 1.0 - 4.0 08/23 Specimen Type: BLOOD No comment entered. Ordering Provider: CARIN CORRIGAN Report Released Date/Time: Aug 23, 2023 03:50 PM Reporting Lab: [address] [address] Performing Lab: [address] [address] [facility] CBC W/DIFF MONOCYTES [#/VOLUME] IN BLOOD BY AUTOMATED COUNT 1.1 10*3/uL 0.2 - 1.0 02/20 /2025 H Specimen Type: BLOOD No comment entered. Ordering Provider: CARIN CORRIGAN Report Released Date/Time: Aug 23, 2023 03:50 PM Reporting Lab: [place] [phone] Performing Lab: [place] [phone] [place] [address] CBC W/DIFF EOSINOPHIL S [#/VOLUME] IN BLOOD BY AUTOMATED COUNT 0.3 10*3/uL 0.0 - 0.4 08/23 Specimen Type: BLOOD No comment entered. Ordering Provider: CARIN CORRIGAN Report Released Date/Time: Aug 23, 2023 03:50 PM Reporting Lab: [place] [phone] Performing Lab: [place] [phone] [facility] CBC W/DIFF BASOPHILS [#/VOLUME] IN BLOOD BY AUTOMATED COUNT 0.1 10*3/uL 0.0 - 0.2 08/23 Specimen Type: BLOOD No comment entered. Ordering Provider: CARIN CORRIGAN Report Released Date/Time: Aug 23, 2023 03:50 PM Reporting Lab: [address] [address] Performing Lab: [place] [phone] [facility] CBC W/DIFF IMMATURE GRANULOCYT ES/100 LEUKOCYTES IN BLOOD 0.1 10*3/uL 0.0 - 0.5 08/23 Specimen Type: BLOOD No comment entered. Ordering Provider: CARIN CORRIGAN Report Released Date/Time: Aug 23, 2023 03:50 PM Reporting Lab: [address] [address] Performing Lab: [place] [phone] [facility] CBC W/DIFF NUCLEATED ERYTHROCYT ES/100 ERYTHROCYT ES IN BLOOD 0.0 /100{WBC s} 0.0 - 0.2 08/23 Specimen Type: BLOOD No comment entered. Ordering Provider: CARIN CORRIGAN Report Released Date/Time: Aug 23, 2023 03:50 PM Reporting Lab: [address] [address] Performing Lab: [address] [address] [facility] CBC W/DIFF NUCLEATED ERYTHROCYT ES [#/VOLUME] IN BLOOD <0.0110* 3/uL 0.00 - 0.01 08/23 Specimen Type: BLOOD No comment entered. Ordering Provider: CARIN CORRIGAN Report Released Date/Time: Aug 23, 2023 03:50 PM Reporting Lab: [place] [phone] Performing Lab: [place] [phone] [facility] VITAMIN D 25-HYDRO XY 25-HYDROXY VITAMIN D3 [MASS/VOLU ME] IN SERUM OR PLASMA 42.60 ng/mL 30 - 100 08/23 Specimen Type: SERUM Comment: Deficiency <20, Insufficien cy 20-30, Sufficiency 30-100, Toxicity >100 ng/mL Ordering Provider: CARIN CORRIGAN Report Released Date/Time: Aug 23, 2023 03:50 PM Reporting Lab: [address] [address] Performing Lab: [place] [phone] [facility] CBC LEUKOCYTES [#/VOLUME] IN BLOOD BY AUTOMATED COUNT 9.1 10*3/uL 3.6 - 11.2 04/13 Specimen Type: BLOOD No comment entered. Ordering Provider: ERIC OLIVER Report Released Date/Time: Apr 12, 2024 11:33 AM Reporting Lab: [facility] [address] [facility] [address] Performing Lab: [facility] [address] [facility] [address] [facility] CBC ERYTHROCYT ES [#/VOLUME] IN BLOOD BY AUTOMATED COUNT 5.66 10*6/uL 4.10 - 5.70 04/13 Specimen Type: BLOOD No comment entered. Ordering Provider: ERIC OLIVER Report Released Date/Time: Apr 12, 2024 11:33 AM Reporting Lab: [address] [address] Performing Lab: [address] [address] [facility] CBC HEMOGLOBIN [MASS/VOLU ME] IN BLOOD 16.2 g/dL 13.1 - 16.8 04/13 Specimen Type: BLOOD No comment entered. Ordering Provider: ERIC OLIVER Report Released Date/Time: Apr 12, 2024 11:33 AM Reporting Lab: [address] [address] Performing Lab: [address] [phone] CBC HEMATOCRIT [VOLUME FRACTION] OF BLOOD 48.1 38.2 - 48.4 04/13 Specimen Type: BLOOD No comment entered. Ordering Provider: ERIC OLIVER Report Released Date/Time: Apr 12, 2024 11:33 AM Reporting Lab: [address] [address] Performing Lab: [address] [phone] [place] [address] CBC MCV [ENTITIC VOLUME] BY AUTOMATED COUNT 85.0 fL 80.0 - 100.0 04/13 Specimen Type: BLOOD No comment entered. Ordering Provider: ERIC OLIVER Report Released Date/Time: Apr 12, 2024 11:33 AM Reporting Lab: [address] [address] Performing Lab: [address] [address] [facility] CBC MCH [ENTITIC MASS] BY AUTOMATED COUNT 28.6 pg 27.0 - 34.0 04/13 Specimen Type: BLOOD No comment entered. Ordering Provider: ERIC OLIVER Report Released Date/Time: Apr 12, 2024 11:33 AM Reporting Lab: [address] [place] [address] Performing Lab: [address] [address] [facility] CBC MCHC [MASS/VOLU ME] BY AUTOMATED COUNT 33.7 g/dL 33.0 - 36.0 04/13 Specimen Type: BLOOD No comment entered. Ordering Provider: ERIC OLIVER Report Released Date/Time: Apr 12, 2024 11:33 AM Reporting Lab: [address] [address] Performing Lab: [address] [phone] [address] CBC PLATELETS [#/VOLUME] IN BLOOD BY AUTOMATED COUNT 318 10*3/uL 150 - 400 04/13 Specimen Type: BLOOD No comment entered. Ordering Provider: ERIC OLIVER Report Released Date/Time: Apr 12, 2024 11:33 AM Reporting Lab: [address] [address] Performing Lab: [address] [phone] [place] [address] CBC PLATELET MEAN VOLUME [ENTITIC VOLUME] IN BLOOD BY AUTOMATED COUNT 10.4 fL 7.5 - 11.2 04/13 Specimen Type: BLOOD No comment entered. Ordering Provider: ERIC OLIVER Report Released Date/Time: Apr 12, 2024 11:33 AM Reporting Lab: [address] [address] Performing Lab: [address] [address] [facility] CBC ERYTHROCYT E DISTRIBUTI ON WIDTH [RATIO] BY AUTOMATED COUNT 12.6 11.8 - 15.1 04/13 Specimen Type: BLOOD No comment entered. Ordering Provider: ERIC OLIVER Report Released Date/Time: Apr 12, 2024 11:33 AM Reporting Lab: [place] [address] [address] [facility] [address] Performing Lab: [facility] [address] [facility] [address] [facility] CBC LYMPHOCYTE S/100 LEUKOCYTES IN BLOOD BY AUTOMATED COUNT 23 04/13 Specimen Type: BLOOD No comment entered. Ordering Provider: ERIC OLIVER Report Released Date/Time: Apr 12, 2024 11:33 AM Reporting Lab: [facility] [address] [facility] [address] Performing Lab: [facility] [address] [facility] [address] [facility] CBC MONOCYTES/ 100 LEUKOCYTES IN BLOOD BY AUTOMATED COUNT 10 04/13 Specimen Type: BLOOD No comment entered. Ordering Provider: ERIC OLIVER Report Released Date/Time: Apr 12, 2024 11:33 AM Reporting Lab: [facility] [address] [facility] [address] Performing Lab: [facility] [address] [facility] [address] [facility] CBC NEUTROPHIL S/100 LEUKOCYTES IN BLOOD BY AUTOMATED COUNT 62 04/13 Specimen Type: BLOOD No comment entered. Ordering Provider: ERIC OLIVER Report Released Date/Time: Apr 12, 2024 11:33 AM Reporting Lab: [facility] [address] [facility] [address] Performing Lab: [facility] [address] [facility] [address] [facility] CBC EOSINOPHIL S/100 LEUKOCYTES IN BLOOD BY AUTOMATED COUNT 5 04/13 Specimen Type: BLOOD No comment entered. Ordering Provider: ERIC OLIVER Report Released Date/Time: Apr 12, 2024 11:33 AM Reporting Lab: [facility] [address] [facility] [address] Performing Lab: [facility] [address] [facility] [address] [facility] CBC BASOPHILS/ 100 LEUKOCYTES IN BLOOD BY AUTOMATED COUNT 1 04/13 Specimen Type: BLOOD No comment entered. Ordering Provider: ERIC OLIVER Report Released Date/Time: Apr 12, 2024 11:33 AM Reporting Lab: [address] [address] Performing Lab: [address] [address] [facility] CBC LYMPHOCYTE S [#/VOLUME] IN BLOOD BY AUTOMATED COUNT 2.09 10*3/uL 0.77 - 4.50 04/13 Specimen Type: BLOOD No comment entered. Ordering Provider: ERIC OLIVER Report Released Date/Time: Apr 12, 2024 11:33 AM Reporting Lab: [address] [address] Performing Lab: [address] [address] [facility] CBC MONOCYTES [#/VOLUME] IN BLOOD BY AUTOMATED COUNT 0.87 10*3/uL 0.19 - 0.80 04/13 H Specimen Type: BLOOD No comment entered. Ordering Provider: ERIC OLIVER Report Released Date/Time: Apr 12, 2024 11:33 AM Reporting Lab: [address] [address] Performing Lab: [address] [address] [facility] CBC NEUTROPHIL S [#/VOLUME] IN BLOOD BY AUTOMATED COUNT 5.61 10*3/uL 2.10 - 8.00 04/13 Specimen Type: BLOOD No comment entered. Ordering Provider: ERIC OLIVER Report Released Date/Time: Apr 12, 2024 11:33 AM Reporting Lab: [address] [address] Performing Lab: [address] [address] [facility] [place] [facility] CBC EOSINOPHIL S [#/VOLUME] IN BLOOD BY AUTOMATED COUNT 0.44 10*3/uL 0.00 - 0.60 04/13 Specimen Type: BLOOD No comment entered. Ordering Provider: ERIC OLIVER Report Released Date/Time: Apr 12, 2024 11:33 AM Reporting Lab: [place] [address] Performing Lab: [address] CBC BASOPHILS [#/VOLUME] IN BLOOD BY AUTOMATED COUNT 0.07 10*3/uL 0.00 - 0.20 04/13 Specimen Type: BLOOD No comment entered. Ordering Provider: ERIC OLIVER Report Released Date/Time: Apr 12, 2024 11:33 AM Reporting Lab: [place] [address] Performing Lab: [address] PROST. SPECIFIC AG.(PB-S TL) PROSTATE SPECIFIC AG [MASS/VOLU ME] IN SERUM OR PLASMA 0.622 ng/mL 0 - 4 04/13 Specimen Type: SERUM Comment: The listed sex of this patient may not be a typical indication for this test. Therefore, reference ranges or interpretiv e criteria listed may not be valid. Clinical correlation suggested. Ordering Provider: ERIC OLIVER Report Released Date/Time: Apr 12, 2024 11:33 AM Reporting Lab: [place] [address] Performing Lab: [address] Vital Signs Combined list of inpatient and outpatient Vital Signs from Department of Defense and Veterans Affairs, ranging from 12 months to all on record, depending upon the facility. Vital Sign Value Date Comments Source SYSTOLIC BLOOD PRESSURE 135 09/27/19 25 14:23:05 [facility] DIASTOLIC BLOOD PRESSURE 92 025 14:23:05 [facility] PULSE OXIMETRY 98 09/26/2024 14:23:05 [facility] WEIGHT 239 09/26/2024 14:23:05 [facility] BMI 32 kg/m2 09/26/2024 14:23:05 [facility] TEMPERATURE 99.3 09/26/2024 14:23:05 [facility] PULSE 92 09/26/2024 14:23:05 [facility] RESPIRATION 16 09/26/2024 14:23:05 [facility] SYSTOLIC BLOOD PRESSURE 118 02/16/20 09:09:32 [facility] DIASTOLIC BLOOD PRESSURE 80 024 09:09:32 [facility] PULSE OXIMETRY 98 02/16/2024 09:09:32 [facility] WEIGHT 225.2 02/16/2024 09:09:32 [facility] BMI 30 kg/m2 02/16/2024 09:09:32 [facility] PAIN 5 02/16/2024 09:09:32 [facility] TEMPERATURE 97.6 02/16/2024 09:09:32 [facility] PULSE 95 02/16/2024 09:09:32 [facility] RESPIRATION 16 02/16/2024 09:09:32 [facility] Encounters Combined list of: 1) Encounters from Department of [facility] Affairs facilities going backup to the last 18 months, not all [place] inpatient encounters are included; 2) Encounters from the Department of [facility] facilities going backup to 280 months. Location Location Details Encounter Type Encounter Number Reason For Visit Attending Provider ADM Date DC Date Status Disposition Source [place] OUTPATIENT [id number] CHARLOTTE RAYMOND 09/10 Released w/o Limitations [place] [place]) [place] OUTPATIENT [id number] hearing test LUKASZ DANG 09/10 Released w/o Limitations [place] ) [place]) [place] [id number] IMM MANA DAS Bruce 09/12 Released w/[place] Limitations [place] OUTPATIENT [id number] twin/mm r JORDEN RACHELKingsley 10/24 Released w/o Limitations [place] [facility]) [place]) OUTPATIENT [id number] POISON TWIN, FOOT PAIN CONVERSEROMEL L 12/13 Released w/o Limitations [place] [facility]) [place] OUTPATIENT [id number] THUY BAER 03/22 [place]ased w/o Limitations [place] [facility] [place]) OUTPATIENT [id number] WALK-IN SUNNY MICHELLE 05/19 Released w/o Limitations [place]) OUTPATIENT [id number] S/ R LEG/TIARA T CONCERN S DARRIAN CHIU 06/02 Released w/o Limitations [place] [place] [place] Physical Exam [facility]) OUTPATIENT [id number] s/pt st ets pe pt given inst PAULETTE CHIRINOS 08/25 Released w/o Limitations [place] Physica l Exam Clinic) [facility] Outpatient Encounter [id number] [place] 06/23 [facility] Outpatient Encounter [id number] 07/01 [facility] Outpatient Encounter [id number] 07/06 [facility] QNHP OL DIG ASSMT&MGMT 21+ [id number] Diagnos is: ICD-10- CM J45.998 Other asthma KARENJamieDEE COOPER R 07/06 [facility] Outpatient Encounter [id number] EMMA MCCORD IE J 07/06 [facility] Outpatient Encounter [id number] [place] 07/06 [facility] Outpatient Encounter [id number] 07/11 [facility] Outpatient Encounter [id number] 07/26 [facility] Outpatient Encounter [id number] 08/03 [facility] MTMS BY PHARM EST 15 MIN [id number] Diagnos is: ICD-10- CM E66.9 Obesity , unspeci fied DEEPA FLAHERTY K 08/03 [facility] Outpatient Encounter [id number] [id number] 08/16 [facility] Outpatient Encounter 66900-2.53 [id number] 08/23 [facility] OFFICE O/P EST HI 40 MIN 56803-4.55 [id number] Diagnos is: ICD-10- CM G47.00 Insomni a, unspeci fied ROBBY CORRIGAN R 08/23 [facility] Outpatient Encounter [id number] [id number] 08/[address] [facility] PRO PHONE CALL 5-10 MIN [id number] [id number] TREVA SANTIAGO 08/31 [facility] Outpatient Encounter [id number] [id number] 09/15 [facility] MTMS BY PHARM EST 15 MIN [id number] [id number] Diagnos is: ICD-10- CM E66.9 Obesity , unspeci fied DEEPA FLAHERTY Yaz Chao 09/26 [facility] Outpatient Encounter [id number] [id number] 09/27 [facility] Outpatient Encounter [id number] [id number] 10/05 [facility] Outpatient Encounter [id number] [id number] 10/06 [facility] Outpatient Encounter [id number] [id number] 10/06 [facility] Outpatient Encounter [id number] [id number] 10/11 [facility] Outpatient Encounter [id number] [id number] CHAGO SHAW 10/17 [facility] Outpatient Encounter [id number] [id number] [place] 10/27 [facility] Outpatient Encounter [id number] [id number] 10/31 [facility] Outpatient Encounter [id number] [id number] [place] 11/02 [facility] Outpatient Encounter [id number] [id number] 11/03 [facility] Outpatient Encounter [id number] [id number] 11/07 [facility] Outpatient Encounter [id number] [id number] [place] 11/08 [facility] Outpatient Encounter [id number] [id number] 11/09 [facility] Outpatient Encounter [id number] [id number] 4 11/10 [facility] CASE MANAGEMENT [id number] [id number] 8 MARGARETH TEIXEIRA 11/29 [facility] Outpatient Encounter [id number] [id number] 12/01 [facility] Outpatient Encounter [id number] [id number] 12/06 [facility] Outpatient Encounter [id number] [id number] 12/06 [facility] Outpatient Encounter [id number] [id number] 12/06 [facility] MTMS BY PHARM EST 15 MIN [id number] [id number] Diagnos is: ICD-10- CM E66.9 Obesity , unspeci fied DEEPA FLAHERTY 12/26 [facility] Outpatient Encounter [id number] [id number] [place] 01/16 [facility] OFFICE O/P EST MOD 30 MIN [id number] [id number] Diagnos is: ICD-10- CM F43.12 Post-tr aumatic stress disorde r, chronic AMEEL,CIELO N 01/18 [facility] Outpatient Encounter [id number] [id number] 01/22 [facility] Outpatient Encounter [id number] [id number] 01/25 [facility] Outpatient Encounter [id number] [id number] 01/31 [facility] OFF/OP CNSLTJ NEW/EST MOD 40 [id number] [id number] Diagnos is: ICD-10- CM E29.1 Testicu lar hypofun MICHELE Delacruz 02/15 [facility] Outpatient Encounter [id number] [id number] 9 02/[address] [facility] Outpatient Encounter [id number] [id number] 4 IBAN DELVALLE L 02/[address] [facility] Outpatient Encounter [id number] [id number] 1 02/19 [facility] Outpatient Encounter [id number] [id number] 03/07 [facility] Outpatient Encounter [id number] [id number] 03/08 [facility] QNHP OL DIG ASSMT&MGMT 21+ [id number] [id number] Diagnos is: ICD-10- CM J45.909 Unspeci fied asthma, uncompl icated DEE PANDEY 03/09 [facility] Outpatient Encounter [id number] [id number] 03/12 [facility] Outpatient Encounter [id number] [id number] 03/15 [facility] Outpatient Encounter [id number] [id number] 03/16 [facility] MTMS BY PHARM ADDL 15 MIN [id number] [id number] Diagnos is: ICD-10- CM E66.9 Obesity , unspeci fied REYNOLD,DEEPA E K 03/27 [facility] Outpatient Encounter [id number] [id number] 04/02 [facility] Outpatient Encounter [id number] [id number] 8 04/09 [facility] HC PRO PHONE CALL 11-20 MIN [id number] [id number] Diagnos is: ICD-10- CM E29.1 Testicu lar hypofun GUMARO Monroe 04/12 [facility] Outpatient Encounter [id number] [id number] 2 04/18 [facility] Outpatient Encounter [id number] [id number] 04/18 [facility] Outpatient Encounter [id number] [id number] RAVINDERAntwon LEBLANCNEHEMIAS Thomas 04/23 [facility] Outpatient Encounter [id number] [id number] [place] 05/[address] [facility] PRO PHONE CALL 5-10 MIN [id number] [id number] Diagnos is: ICD-10- CM Z68.30 Body mass index [BMI] 30.0-30 .9, adult Yaz JOSEPH 06/15 [facility] Outpatient Encounter [id number] [id number] [place] 06/28 [facility] Outpatient Encounter [id number] [id number] 06/28 [facility] MTMS BY PHARM EST 15 MIN [id number] [id number] Diagnos is: ICD-10- CM E66.9 Obesity , unspeci DEEPA Aparicio 07/05 [facility] OFFICE O/P EST MOD 30 MIN [id number] [id number] Diagnos is: ICD-10- CM E29.1 Testicu lar hypofun ction BENITO,MEDAMI [place] 07/16 [facility] Encounter [id number] [id number] [place] 08/09 [facility] [place] [id number] [id number] Diagnos is: ICD-10- CM E66.09 Other obesity due to excess calorie ALONA Abebe 08/14 [facility] [id number] [id number] 08/22 [facility] Outpatient Encounter [id number] [id number] 08/27 [facility] Outpatient Encounter [id number] [id number] 7 PAOLA QUINONES AM H 08/27 [facility] SYNCH AUDIO-VIDE O [place] 60 [id number] [id number] Diagnos is: ICD-10- CM F43.12 Post-tr aumatic stress disorde r, chronic MANJULA LYNCH B 09/05 [facility] Outpatient Encounter [id number] [id number] Diagnos is: ICD-10- CM Z00.01 Encount er for general adult medical exam w abnorma l finding s GREG DAVIS 09/26 [facility] Outpatient Encounter [id number] [id number] 10/01 [facility] Outpatient Encounter [id number] [id number] 10/02 [facility] Outpatient Encounter [id number] [id number] 10/03 [facility] Outpatient Encounter [id number] [id number] PAOLA QUINONES AM H 10/31 [facility] Encounter [id number] [id number] 10/31 [facility] Outpatient Encounter [id number] [id number] 11/05 [facility] PSYTX W PT W E/M 30 MIN [id number] [id number] Diagnos is: ICD-10- CM F43.12 Post-tr aumatic stress disorde r, chronic JUAN CARLOS LYNCHRE B 11/15 [facility] Outpatient Encounter [id number] [id number] [place] 11/19 [facility] Outpatient Encounter [id number] [id number] [place] 11/27 [facility] OFFICE O/P EST MOD 30 MIN [id number] [id number] Diagnos is: ICD-10- CM 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 Procedure Procedure Type Code Date Perfomer Comments Sour e HEPATITIS A AND HEPATITIS B VACCINE (HEPA-HEPB), ADULT DOSAGE, FOR INTRAMUSCULAR USE 10/25/19 08 [facility] SKIN TEST; TUBERCULOSIS, INTRADERMAL 09/13/19 08 [facility] PURE TONE AUDIOMETRY (THRESHOLD); AIR ONLY 09/11/19 08 [facility] SCREENING TEST OF VISUAL ACUITY, QUANTITATIVE, BILATERAL 09/11/19 08 [facility] INTERPRETATION OR EXPLANATION OF RESULTS OF PSYCHIATRIC, OTH MEDICAL EXAMS/PROCEDURES, OR OTH ACCUMULATED DATA TO FAMILY OR OTH RESPONSIBLE PERSONS,OR ADVISING THEM HOW TO ASSIST PATIENT 10/22/19 11 [facility] BEHAVIORAL HEALTH PREVENTION INFORMATION DISSEMINATION SERVICE (ONE-WAY DIRECT OR NON-DIRECT CONTACT WITH SERVICE AUDIENCES TO AFFECT KNOWLEDGE AND ATTITUDE) 10/10/19 11 [facility] ALCOHOL AND/OR DRUG PREVENTION PROBLEM IDENTIFICATION AND REFERRAL SERVICE (E.G., STUDENT ASSISTANCE AND EMPLOYEE ASSISTANCE PROGRAMS), DOES NOT INCLUDE ASSESSMENT 08/26/19 11 [facility] SCREENING TEST OF VISUAL ACUITY, QUANTITATIVE, BILATERAL 08/25/19 11 [facility] INDIVIDUAL PSYCHOTHERAPY, INSIGHT ORIENTED, BEHAVIOR MODIFYING AND/OR SUPPORTIVE, IN AN OFFICE OR OUTPATIENT FACILITY, APPROXIMATELY 20 TO 30 MINUTES [id number] W THE PATIENT; W JOCE EVAL & MGT SER 08/18/19 11 [facility] ALCOHOL AND/OR DRUG PREVENTION PROBLEM IDENTIFICATION AND REFERRAL SERVICE (E.G., STUDENT ASSISTANCE AND EMPLOYEE ASSISTANCE PROGRAMS), DOES NOT INCLUDE ASSESSMENT 08/12/19 11 [facility] BEHAVIORAL HEALTH PREVENTION EDUCATION SERVICE (DELIVERY OF SERVICES WITH TARGET POPULATION TO AFFECT KNOWLEDGE, ATTITUDE AND/OR BEHAVIOR) 08/10/19 11 [facility] BEHAVIORAL HEALTH PREVENTION INFORMATION DISSEMINATION SERVICE (ONE-WAY DIRECT OR NON-DIRECT CONTACT WITH SERVICE AUDIENCES TO AFFECT KNOWLEDGE AND ATTITUDE) 08/07/19 11 [facility] BEHAVIORAL HEALTH PREVENTION INFORMATION DISSEMINATION SERVICE (ONE-WAY DIRECT OR NON-DIRECT CONTACT WITH SERVICE AUDIENCES TO AFFECT KNOWLEDGE AND ATTITUDE) 07/28/19 11 [facility] INDIVIDUAL PSYCHOTHERAPY, INSIGHT ORIENTED, BEHAVIOR MODIFYING AND/OR SUPPORTIVE, IN AN OFFICE OR OUTPATIENT FACILITY, APPROXIMATELY 75 TO 80 MINUTES [id number] WITH THE PATIENT 07/27/19 11 [facility] AUDIOMETRIC TESTING OF GROUPS 05/12/20 10 [facility] DETERMINATION OF REFRACTIVE STATE 02/05/20 10 [facility] SKIN TEST; TUBERCULOSIS, INTRADERMAL 01/22/20 10 [facility] DETERMINATION OF REFRACTIVE STATE 01/07/20 10 [facility] DETERMINATION OF REFRACTIVE STATE 12/11/19 10 [facility] POSTOPERATIVE FOLLOW-UP VISIT, NORMALLY INCLUDED IN THE SURGICAL PACKAGE, INDICATE THAT EVALUATION & MANAGEMENT SERVICE WAS PERFORMED DURING A POSTOPERATIVE PERIOD REASON RELATED ORIGINAL PROCEDURE 11/20/19 10 [facility] PHOTOREFRACTIVE KERATECTOMY (PRK) 11/14/19 10 [facility] COMPUTERIZED CORNEAL TOPOGRAPHY, UNILATERAL OR BILATERAL, WITH INTERPRETATION AND REPORT 11/05/19 10 [facility] COMPUTERIZED CORNEAL TOPOGRAPHY, UNILATERAL OR BILATERAL, WITH INTERPRETATION AND REPORT 10/03/19 10 [facility] COLLECTION OF VENOUS BLOOD BY VENIPUNCTURE 07/25/19 10 [facility] SKIN TEST; TUBERCULOSIS, INTRADERMAL 07/23/19 10 [facility] UNLISTED VACCINE/TOXOID 04/11/20 08 [facility] SCREENING TEST OF VISUAL ACUITY, QUANTITATIVE, BILATERAL 04/09/20 08 [facility] Psychiatric Therapy Counseling Family / Guardians Psychiatric Therapy Counseling Family / Guardians [id number] 10/22/19 11 ESPERANZA GARCIA [facility] Behavioral health counseling and therapy, per 15 minutes 10/10/19 11 HELEN GARCIAALL ARABELLA [facility] Alcohol and/or drug services; case management 10/10/19 11 ESPERANZA GARCIA [facility] Behavioral health prevention information di emination service (one-way direct or non-direct contact with service audiences to affect knowledge and attitude) 10/10/19 11 HELEN GARCIAALL ARABELLA [facility] Alcohol and/or drug services; group counseling by a clinician 08/26/19 11 ESPERANZA GARCIA [facility] Alcohol and/or drug services; case management 08/26/19 11 [facility] health prevention information di emination service (one-way direct or non-direct contact with service audiences to affect knowledge and attitude) 08/26/19 11 [facility]LEN[facility] Behavioral health prevention education service (delivery of services with target population to affect knowledge, attitude and/or behavior) 08/26/[address] [facility] Alcohol and/or drug prevention problem identification and referral service (e.g., student a istance and employee a istance programs), does not include a e ment 08/26/19 11 [facility] Intravenous Catheter Placement Intravenous Catheter Placement 09888 08/25/19 11 PAULETTE CHIRINOS [facility] Screening Test Of Visual Acuity, Quantitative, Bilateral Screening Test Of Visual Acuity, Quantitative, Bilateral 99258 08/25/19 11 PAULETTE CHIRINOS [facility] Psychiat Therapy Indiv Appr 20-30 Min W/ Med Eval Managemt Psychiat Therapy Indiv Appr 20-30 Min W/ Med Eval Managemt 64400 08/18/19 11 DALLAS HALEY [facility] Psychiatric Evaluation Review of Records and Reports Psychiatric Evaluation Review of Records and Reports 79520 08/12/19 11 JOE SUAREZ [facility] Psychiatric Therapy Preparation of Psychiatric Status Report Psychiatric Therapy Preparation of Psychiatric Status Report [id number] 08/12/19 11 JOE SUAREZ LIV [facility] Behavioral health prevention education service (delivery of services with target population to affect knowledge, attitude and/or behavior) 08/12/19 11 [facility] Behavioral health prevention information di emination service (one-way direct or non-direct contact with service audiences to affect knowledge and attitude) 08/12/19 11 [facility] Alcohol and/or drug prevention problem identification and referral service (e.g., student a istance and employee a istance programs), does not include a e ment 08/12/[address] [facility] Alcohol and/or drug services; group counseling by a clinician 08/12/[address] [facility] Alcohol and/or drug services; case management 08/12/[address] [facility] Psychiatric Therapy Counseling Family / Guardians Psychiatric Therapy Counseling Family / Guardians [id number] 08/10/19 11 [facility] Alcohol and/or drug services; case management 08/10/[address] [facility] Behavioral health prevention information di emination service (one-way direct or non-direct contact with service audiences to affect knowledge and attitude) 08/10/19 11 ESPERANZA GARCIA Behavioral health prevention education service (delivery of services with target population to affect knowledge, attitude and/or behavior) 08/10/19 11 ESPERANZA GARCIA Behavioral health prevention information di emination service (one-way direct or non-direct contact with service audiences to affect knowledge and attitude) 08/07/[address] [facility] Alcohol and/or drug services; case management 08/07/[address] [facility] Psychiatric Therapy Preparation of Psychiatric Status Report Psychiatric Therapy Preparation of Psychiatric Status Report [id number] 08/03/19 11 JOE SUAREZ [facility] Alcohol and/or drug services; case management 07/28/19 11 ESPERANZA GARCIA Behavioral health prevention information di emination service (one-way direct or non-direct contact with service audiences to affect knowledge and attitude) 07/28/19 11 ESPERANZA GARCIA Alcohol and/or drug a e ment 07/28/19 11 ESPERANZA GARCIA Behavioral health screening to determine eligibility for admi ion to treatment program 07/28/19 11 ESPERANZA GARCIA Psychiatric Evaluation Comprehensive Examination Psychiatric Evaluation Comprehensive Examination 33042 07/27/19 11 JOE SUAREZ Client seen for 90 minutes for intake and assessment. Discussed incident, treatment options and referrals. Reviewed safety plan. No tests performed. [facility] Audiometry Group Testing Audiometry Group Testing 62888 05/19/20 10 MICHELLE CORREA JR [facility] Immunization Administration Each Additional Vaccine 10/25/19 08 JORDEN RACHEL Hepatitis A And Hepatitis B (Intramuscular Use) Adult Dosage Hepatitis A And Hepatitis B (Intramuscular Use) Adult Dosage 56438 10/25/19 08 JORDEN RACHEL Immunization Administration One Vaccine Immunization Administration One Vaccine 89362 10/25/19 08 JORDEN RACHEL Tdap Vaccine Tdap Vaccine 25395 09/15/19 08 MANA DAS Meningococcal Polysacch Diphtheria Toxoid Conjugate Vaccine 09/15/19 08 MANA DAS Vaccines Viral Polio, Inactivated (Salk) Vaccines Viral Polio, Inactivated (Salk) 18565 09/15/19 08 MANA DAS Skin Test Anergy Tuberculin Intradermal Skin Test Anergy Tuberculin Intradermal 56389 09/15/19 08 MANA DAS [facility] Influenza Split Virus Vacc Age 3+ Years IM Preservative Free 09/15/19 08 MANA DAS Venipuncture Venipuncture 30746 09/15/19 08 MANA DAS [facility] Immunization Administration One Vaccine Immunization Administration One Vaccine 01562 09/15/19 08 MANA DAS [facility] Immunization Administration Each Additional Vaccine 09/15/19 08 MANA DAS [facility] Supervised Injection Intramuscular Antibiotic Supervised Injection Intramuscular Antibiotic 90179 09/15/19 08 MANA DAS [facility] Hepatitis A And Hepatitis B (Intramuscular Use) Adult Dosage Hepatitis A And Hepatitis B (Intramuscular Use) Adult Dosage 49424 09/15/19 08 MANA DAS Vaccines Viral Measles, Mumps and Rubella, Live Vaccines Viral Measles, Mumps and Rubella, Live 73100 09/15/19 MANA DAS [facility] Screening Test Of Visual Acuity, Quantitative, Bilateral Screening Test Of Visual Acuity, Quantitative, Bilateral 29770 09/11/19 CHARLOTTE RAYMOND [facility] Threshold Audiogram (Pure Tone) Threshold Audiogram (Pure Tone) 17787 09/11/[address]Supervised Group Educational Services 09/11/[address]Supervised Services Provision Of Special Supplies -Supervised Services Provision Of Special Supplies 42920 09/11/[address] Services Analysis Of Computerized Data Special [employer] Services Analysis Of Computerized Data 35665 09/11/19 08 LUKASZ DANG Audiometry Group Testing Audiometry Group Testing 53237 09/11/19 08 LUKASZ DANG Ear Protector Attenuation Measurements Ear Protector Attenuation Measurements 38254 09/11/19 08 LUKASZ DANG Social History Combined list of available smoking, tobacco, and other social history from Department of Defense and Veterans Affairs facilities. Social History Type Response Date Comment Sourc e Tobacco smoking status [facility] VA-TOBACCO NEVER USED CIGARETTES 09/26/2024 [facility] History of tobacco use VA-TOBACCO USE FORMER OTHER TYPE 09/26/2024 [facility] History of tobacco use VA-TOBACCO FORMER USER [facility] [facility] [place] [facility] History of tobacco use AH-BPR SMOKING DEPLOYMENT NO 2023 [facility] History of tobacco use VA-TOBACCO FORMER USER 07/27/[address] [facility] [place] [facility] History of tobacco use VA-TOBACCO USE MED NO 08/07/2021 [facility] [place] [facility] This section is an empty social history section. DoD Plan of Care List of future care activities from Department of Veterans Affairs facilities. Additional future care activities may be listed in the Assessment and Plan section. Date/Time Care Activity Care Activity Detail Facili ty 01/10/2025 AMBULATORY - NONE AMBULATORY - NONE [facility]
--- OUTSIDE RECORDS SUMMARY | 2024-12-08 17:45 | XMS_ITS | Encounter Summary ---
Author Name [facility] ([facility] Organization [facility] ([place]) Address [address] [place] [address] Care Team Providers Care Economics Consultant Name Role Phone RYAN ASHWINI Primary Care Provider Unavailabl e Insurance Providers: [...] section includes the information on record at NH for the Encounter. Date/Time Encounter Type Encounter Description Reason Provider Source Sep 05, 2024 03:00 PM SYNCH AUDIO-VIDEO [place] [id number] [facility] - IND ICD-10-CM F43.12 Post-traumatic stress disorder, chronic JUAN CARLOS LYNCH [facility] Encounter Template Text not used by NH Assessments - Encounter Diagnoses This section includes the primary and secondary diagnoses documented for the Encounter. Date/Time Primary/Secondary Diagnosis Diagnosis Name Provider Source Sep 05, 2024 05:21 PM PRIMARY Post-traumatic stress disorder, chronic JUAN CARLOS LYNCH [facility] Sep 05, 2024 05:21 PM SECONDARY Mental disorder, not otherwise specified JUAN CARLOS LYNCH [facility] Sep 05, 2024 05:21 PM SECONDARY Other specified depressive episodes JUAN CARLOS LYNCH [facility] Plan of Treatment: Future Appointments (+ 6 months) and Future Tests (+/- 45 days) The Plan of Treatment section includes future care activities for the patient from [facility]. This section includes future appointments and future orders which are active, pending or scheduled. Future Appointments This section includes appointments that were scheduled to occur 6 months from the date of the Encounter, up to a maximum of 20 appointments. The data comes from all [place] treatment facilities. Appointment Date/Time Appointment Type Appointme nt Facility Name Sep 26, 2024 02:30 PM AMBULATORY - NONE [facility] November 15, 2024 08:00 AM AMBULATORY - PSYCHIATRY [facility] Dec 03, 2024 08:00 AM AMBULATORY - MEDICINE [facility] Jan 10, 2025 03:30 PM AMBULATORY - NONE [facility] Feb 06, 2025 08:00 AM AMBULATORY - PSYCHIATRY [facility] Feb 11, 2025 03:00 PM AMBULATORY - NONE [facility] Lab Results: +/- 30 days of the encounter This section includes the Chemistry and Hematology Lab Results on record with NH for the patient. Radiology Reports and Pathology Reports are provided separately, in subsequent sections. Lab Results This section contains the Chemistry/Hematology Results that were resulted 30 days before or 30 daysafter the date of the Encounter. Date/Time Source Result Type Result - Unit Interpretation Reference Range Specimen Type Comment Aug 23, 2024 03:20 PM [facility] TOTAL TESTOST II SERUM Specimen Type: SERUM No comment entered. Ordering Provider: MARIANNE MYERS Report Released Date/Time: Aug 23, 2024 03:20 PM Reporting Lab: [facility] [address] [facility] [id number] Performing Lab: [facility] [address] [place] [id number] TOTAL TESTOST II 553 ng/dL [phone] Aug 23, 2024 02:41 PM [facility] THYROID CASCADE PANEL SERUM Spe cimen Type: SERUM Comment: Deficiency <20, Insufficiency 20-30, Sufficiency 30-100, Toxicity >100 ng/mL Ordering Provider: KATARINA CORRIGAN Report Released Date/Time: Aug 23, 2023 03:50 PM Reporting Lab: [facility] [address] [facility] [address] Performing Lab: [address] [address] TSH3 ULTRA EIA 1.292 u[IU]/mL 0.550-4.78 0 Aug 23, 2024 02:41 PM [facility] A1C % BLOOD Specimen Type: BLOOD Comment: Normal: < or = 5.6% Pre-diabetes: 5.7-6.4% Diabetes Mellitus: > or = 6.5% Values obtained from A1C measurements can vary. For typical A1C assays, a reported value of 7.0 could actually be between 6.72 and 7.28 if measured by a reference method. A reported value of 9.0 could actually be between 8.73 and 9.27. Ref: http://www.ngsp.org/CAPdata.asp Ordering Provider: KATARINA CORRIGAN Report Released Date/Time: Aug 23, 2023 03:50 PM Reporting Lab: [address] [phone] Performing Lab: [place] [id number] A1C % 5.1 0.0-5.6 Aug 23, 2024 02:41 PM [facility] LIPID PNL PLASMA Specimen T ype: PLASMA Comment: Low-risk levels (desirable) <200 mg/dL Moderate-risk levels (borderline) 200-239 mg/dL High-risk levels: >= 240 mg/dL Normal: <150 mg/dL -Borderline High: 150-199 mg/dL -High: 200-499 mg/dL -Very High: >500 mg/dL eGFR was calculated using the CKD-EPI Creatinine (2020) equation. Optimal: <100 mg/dL -Near Optimal/Above Optimal: 100-129 mg/dL -Borderline High: 130-159 mg/dL -High: 160-189 mg/dL -Very High: >=190 mg/dL Ordering Provider: KATARINA CORRIGAN Report Released Date/Time: Aug 23, 2023 03:50 PM Reporting Lab: [address] [address] Performing Lab: [place] [id number] DIR. HDL 44 mg/dL L >=60 TRIGLYCERIDES 148 mg/dL See Comment DIR LDL canc CHOL 144 mg/dL See Comment LDL (CALCULATED) 70 mg/dL See Comment Aug 23, 2024 02:41 PM [facility] UA W/ MICRO URINE Specimen T ype: URINE Comment: Microscopic not performed when urine is clear and is negative for blood, nitrite, leukocyte esterase, and < 30 mg/dL protein. Ordering Provider: KATARINA CORRIGAN Report Released Date/Time: Aug 23, 2023 03:50 PM Reporting Lab: [address] [address] Performing Lab: [address] [phone] UA-GLUCOSE Negative mg/dL Negative UA-PROTEIN Negative mg/dL Negative UA-BILIRUBIN Negative Negative UA-UROBILINOGEN <2.0 mg/dL < 2.0 UA-pH 7.5 5.0-8.0 UA-BLOOD Negative Negative UA-KETONE Negative mg/dL Negative UA-NITRITE Negative Negative UA-LEUKOCYTES Negative Negative UA-CLARITY Clear Clear UA-SPECIFIC GRAVITY 1.022 1.005-1.030 UA-COLOR Light Yellow Yellow Aug 23, 2024 02:41 PM [facility] VITAMIN D 25-HYDROXY SERUM Spec imen Type: SERUM Comment: Deficiency <20, Insufficiency 20-30, Sufficiency 30-100, Toxicity >100 ng/mL Ordering Provider: KATARINA CORRIGAN Report Released Date/Time: Aug 23, 2023 03:50 PM Reporting Lab: [address] [phone] Performing Lab: [address] [phone] VITAMIN D 25-HYDROXY 42.60 ng/mL 30-100 Aug 23, 2024 02:41 PM [facility] COMPREHENSIVE PNL PLASMA Specime n Type: PLASMA Comment: Low-risk levels (desirable) <200 mg/dL Moderate-risk levels (borderline) 200-239 mg/dL High-risk levels: >= 240 mg/dL Normal: <150 mg/dL -Borderline High: 150-199 mg/dL -High: 200-499 mg/dL -Very High: >500 mg/dL eGFR was calculated using the CKD-EPI Creatinine (2020) equation. Optimal: <100 mg/dL -Near Optimal/Above Optimal: 100-129 mg/dL -Borderline High: 130-159 mg/dL -High: 160-189 mg/dL -Very High: >=190 mg/dL Ordering Provider: KATARINA CORRIGAN Report Released Date/Time: Aug 23, 2023 03:50 PM Reporting Lab: [address] [phone] Performing Lab: [address] [phone] ANION GAP 9 mmol/L 5-15 EGFR 81 mL/min/{1.73_m2} >= 60 GLUCOSE 85 mg/dL 70-99 POTASSIUM 4.4 mmol/L 3.5-4.7 SODIUM 141 mmol/L 136-145 BILI,TOTAL 0.4 mg/dL 0.2-1.2 PROTEIN, TOTL 7.1 g/dL 5.7-8.2 ALBUMIN 4.7 g/dL 3.4-5.0 ALKAL PHOS 69 U/L 45-117 ALT 31 U/L 10-65 AST 41 U/L H 10-37 UREA NITROGEN 15 mg/dL 7-21 CALCIUM, TOTAL 9.7 mg/dL 8.7-10.4 CO2 31 mmol/L 21-32 CHLORIDE 101 mmol/L 98-109 CREATININE 1.19 mg/dL H 0.73-1.18 Aug 23, 2024 02:41 PM [facility] CBC W/DIFF BLOOD Specimen T ype: BLOOD No comment entered. Ordering Provider: KATARINA CORRIGAN Report Released Date/Time: Aug 23, 2023 03:50 PM Reporting Lab: [address] [phone] Performing Lab: [address] [phone] WBC 8.3 10*3/uL 4.0-11.0 RBC 5.54 10*6/uL 4.20-5.70 HGB 16.2 g/dL 13.0-17.0 HCT 47.3 40.0-51.0 MCV 85.4 fL 82.0-99.0 MCH 29.2 pg 27.0-34.0 MCHC 34.2 g/dL 31.0-37.0 MPV 10.1 fL 8.0-12.[address] 369 10*3/uL 130-400 RDW-CV 12.2 < 15.0 NEUTROPHILS% 58.7 LYMPHS% 22.9 MONOS% 12.7 EOS% 3.4 BASOS% 1.1 IG% 1.2 NEUTROPHILS# 4.9 10*3/uL 1.5-8.0 LYMPHS# 1.9 10*3/uL 1.0-4.0 MONOS# 1.1 10*3/uL H 0.2-1.0 EOS# 0.3 10*3/uL 0.0-0.4 BASOS# 0.1 10*3/uL 0.0-0.2 IG# 0.1 10*3/uL 0.0-0.5 NRBC% 0.0 /100{WBCs} 0.0-0.2 NRBC# <0.01 10*3/uL 0.00-0.01 Social History: Smoking Status (Most current) and Tobacco Use (All prior to encounter date) This section includes the most current, and the historical, smoking and tobacco- related health factors from the [place] facility where the Encounter took place. Current Smoking Status This section includes the most current smoking, or tobacco-related health factor, from the NH facility where the Encounter took place. Date/Time Current Smoking Status Comment Erinn ity Aug 23, 2023 03:00 PM VA-TOBACCO FORMER USER [facility] Tobacco Use History This section includes a history of the smoking, or tobacco-related health factors, that were collected on or before the date of the Encounter. The data comes from the [place] facility where the Encounter took place. Date/Time Smoking Status/Tobacco Use Comment F acility Aug 23, 2023 03:00 PM VA-TOBACCO QUIT 1 TO < 5 YRS [facility] 2023 10:30 AM -BPR SMOKING DEPLOYMENT NO [facility] Jul 27, 2022 10:00 AM VA-TOBACCO FORMER USER [facility] Jul 27, 2022 10:00 AM VA-TOBACCO QUIT < 1 YEAR [facility] Aug 07, 2021 01:30 PM VA-TOBACCO USE 5 TO 15 YEARS [facility] Aug 07, 2021 01:30 PM VA-TOBACCO USE ADVICE [facility] Aug 07, 2021 01:30 PM VA-TOBACCO USE ROBOTICS TECHNOLOGIST NO [facility] Aug 07, 2021 01:30 PM VA-TOBACCO USE MED NO [facility] Aug 07, 2021 01:30 PM VA-TOBACCO USE WI 30 MIN OF WAKEUP [facility] Aug 07, 2021 01:30 PM VA-TOBACCO USER EVERY DAY [facility] Encounter Notes: All associated encounter notes This section contains the clinical notes associated to the Encounter. Date/Time Encounter Note(s) Provider Source Sep 27, 2024 09:39 AM ADDENDUM: LOCAL TITLE: Addendum STANDARD TITLE: ADDENDUM DATE OF NOTE: SEP 27, 2024@09:39:45 ENTRY DATE: SEP 27, 2024@09:39:47 AUTHOR: LUANN MUÑOZ EXP COSIGNER: URGENCY: STATUS: COMPLETED Alerting MH Provider to enter RTC 2 month follow up. /zainab/ NADJA Nassar RN [facility] RN Signed: 09/27/2024 09:40 Receipt Acknowledged By: 09/27/2024 14:14 /zainab/ MANJULA LYNCH PMHNP MENTAL HEALTH NURSE PRACTITIONER-BC --- Original Document --- 09/05/24 CONSULT/MENTAL HEALTH ASSESSMENT: Patient gave verbal consent for this [facility] encounter. The following identifiers were used to verify this patient: . SSN. Telehealth Disclosure: Visit conducted by synchronous telehealth. verbal consent obtained. Location/emergency number confirmed. Environment surveyed and all participants identified. Virtual conference room locked. CHIEF COMPLAINT: I am here for my medications HISTORY OF PRESENT ILLNESS: A 34 year-old male cauc.patient seen Today at the Mental health clinic for first visit after his last provider is for medication management and evaluation of stability. Patient reports he started care in 2019 for management of PTSD,nightmares anxiety and depression.Patient is currently on Trazodone hcl tab 100mg take four tablets by mouth at bedtime for sleep,Prazosin hcl cap,oral 5mg take 3capsules by mouth at bedtime,Sertraline hcl tab 100mg take two tablets by mouth every day.He lives with his and they are managing through well.He manages symptoms by taking rest,playing games,watching TV, listening to music,taking medications and talking with friends and family.He reports no crying spells,anhedonia,lack of energy,not feeling hopeless,helpless,worthles s or burdensome.He denies having any thoughts of harming himself or others. PSYCHIATRIC HISTORY: History of inpatient psychiatric care: Denies outpatient psychiatric care: Denies suicide attempt: Denies problematic substance use: Denies In the last 12 months, any use of- Tobacco: Denies ,stopped chewing couple of years back Alcohol: Social drinker 1 beer in a month Marijuana: Denies Cocaine/crack: Denies Heroin: Denies Inhalants: Denies Stimulants: Denies Misuse of prescriptions: Denies FAMILY PSYCHIATRIC HISTORY: Family history of suicide: Denies mood disorders: Denies psychotic disorders: Denies substance abuse: Denies PSYCHOSOCIAL HISTORY: Hx of neglect/abuse/assault: Denies Relationship state: Patient reports he is and has 7 & 3 yr old kids Living situation: Patient living in own home,patient is employed as a [employer] Legal issues: Denies Guardian: Denies MENTAL STATUS EXAM AND RELEVANT PHYSICAL EXAM: Behavior: cooperative responds well to conversation. Speech: clear, not pressured with normal rate, tone, and volume Orientation: alert, oriented to person, place and time Mood: Euthymic Affect: Cooperative and pleasant Thought processes: concrete Thought content: denies current suicidal or homicidal ideations and does not appear to be responding to internal stimuli, denies delusion. Insight: Good Judgment: Intact ROS: Respiration: Patient denies shortness of breath, Speaking in full clear sentences. Urinary: Denies urinary difficulty. GI: Denies constipation, reports good appetite. Neuro: Alert and oriented x 3, denies headache. Cardio: Patient denies chest pain. REVIEW OF PERTINENT SYSTEMS: Pain: Celcoxib 200mg two times a day Neurologic: Denies history of seizures or stroke REVIEW OF LABS/STUDIES: ---- MANUAL CHEMISTRY TEST ---- BLOOD T.GLYCO A1C % BNP CEA Ref range low 5 0 0 Ref range high 7.3 5.6 100 3 % GHb % A1C pg/mL ng/ml - [d] Aug 23, 2024 14:41 5.1 = Test Name Result Units Ref Range Collection DT GLUCOSE 85 mg/dL 70 - 99 08/23/2024 UREA NITROGEN 15 mg/dL 7 - 08/23/2024 CREATININE 1.19 H mg/dL .73 -1.18 08/23/2024 SODIUM 141 mmol/L 136 - 145 08/23/2024 POTASSIUM 4.4 mmol/L 3.5 - 4.7 08/23/2024 CHLORIDE 101 mmol/L 98 - 109 08/23/2024 CO2 31 mmol/L 20 - 08/23/2024 CALCIUM, TOTAL 9.7 mg/dL 8.7 -10.4 08/23/2024 PROTEIN, TOTL 7.1 g/dL 5.7 - 8.2 08/23/2024 ALBUMIN 4.7 g/dL 3.4 - 5 08/23/2024 AST 41 H U/L 10 - 37 08/23/2024 ALT 31 U/L 10 - 65 08/23/2024 BILI,TOTAL 0.4 mg/dL .2 - 1.2 08/23/2024 ALKAL PHOS 69 U/L 45 - 117 08/23/2024 EGFR 81 - 08/23/2024 ANION GAP 9 mmol/L 5 - 15 08/23/2024 WBC 8.3 K/uL 4 - 11 08/23/2024 RBC 5.54 M/uL 4.2 - 5.7 08/23/2024 HGB 16.2 g/dL 13 - 17 08/23/2024 HCT 47.3 % 40 - 51 08/23/2024 MCV 85.4 fL 82 - 99 08/23/2024 MCH 29.2 pg 27 - 34 08/23/2024 MCHC 34.2 g/dL 31 - 37 08/23/2024 RDW-CV 12.2 % 0 - 15 08/23/[address] 369 K/uL 130 - 400 08/23/2024 MPV 10.1 fl 8 - 12 08/23/2024 TSH3 ULTRA EIA 1.292 uIU/mL .55 -4.78 08/23/2024 VITALS 10/31/23 T: 98.8 F (37.1 C) P: 70 R: 16 B/P: 118/76 Wt: 228.60 lb (103.69 kg) Body Mass Index: 30* Pulse Oximetry: 98% Pain: 0 - No pain IS THIS NOTE BEING COMPLETED BY A PHYSICIAN, PHYSICIAN PAPER CUP MACHINE OPERATOR OR NURSE PRACTITIONER? [ YES ] Discussion of risk/benefits of medications. Patient/caregiver verbalizes understanding and intent to comply. Potential risks, benefits, and alternative to medications prescribed were discussed with [place]/caregiver who was given an opportunity to ask questions, which were answered to the best of my ability and seemingly to their satisfaction. [place]/caregiver was/were instructed to contact provider (means provided) with any concerns or questions. INFORMED CONSENT All relevant aspects of suggested treatment and its alternatives, including no treatment, have been discussed with the patient in language that he could understand. This discussion includes the nature, indication, benefits/risks, side effects, and likelihood of success of each alternative treatment option. The patient demonstrated adequate comprehension of the information. This has been given the opportunity to ask questions. Slag Expander did not make any attempt to coerce [place] to consent to this treatment; [place] willingly gives informed consent to treatment after discussion regarding possible risks/benefits/adverse effects of medications prescribed. DIAGNOSIS/ASSESSMENT: Chronic post-traumatic stress disorder following combat Depressive disorder Insomnia disorder related to another mental disorder ASSESSMENT: A 34year-old cauc.,male patient seen today for first visit after his last provider for for medication management and evaluation.Information was obtained from the patient and the patients chart.I did review the progress notes in the patients chart.I did reconcile the patients medications.The patient appears to be a good historian. Patient has history of Depression,Post-traumatic stress disorder (PTSD) and insomnia.Patient is alert and oriented x3,responds appropriately to conversation, no acute distress noted and mood is stable.Patient denies suicidal/homicidal ideation, denies visual or auditory hallucination. Patient reports he is usually unable to sleep without his medication.He gets 6hours so sleep with meds. Patient reports he has trialled several meds that did not work in the past and denies need for med adjutment this visit as these current meds works for him . Patient is currently on -Trazodone hcl tab 100mg take four tablets by mouth at bedtime for sleep,Prazosin hcl cap,oral 5mg take 3 capsules by mouth at bedtime and Sertraline hcl tab 100mg take two tablets by mouth every day. He reports he has been med compliant,denies side effects and reports effectiveness.He endorsed stable mood and continuation of current meds. Patient last.Annual labs current.All medication scripts filled,patient educated on benefits side and adverse effects of medications.Patient verbalized understanding.Patient RTC in 3months appointment or earlier if needed. CONTROLS PROJECT ENGINEER GOALS: Mood stability Good health Medication and treatment compliance TARGET DATE: Ongoing SHORT TERM GOALS: Improving mood Medication and treatment compliance PLAN INCLUDING OTHER SERVICES INVOLVED IN CARE 1. Medication: continue -Trazodone hcl tab 100mg take four tablets by mouth at bedtime for sleep -Prazosin hcl cap,oral 5mg take 3 capsules by mouth at bedtime -Sertraline hcl tab 100mg take two tablets by mouth every day 2.Education provided regarding diagnosis/symptoms/side effects of medications, prognosis and the need for medication and treatment compliance 3.Monitor symptoms,suicidal ideations, side effects, risks and benefits, and mental status at each medication management appointment. 4.THERAPY: provided education for the benefits of healthy lifestyle changes/sleep hygiene/exercise/diet and avoidance of illicit drugs and alcohol. 5.Opportunity given for questions. 6.Return to clinic for follow up in 2month or earlier if needed. 7.Safety: was provided with information on the [facility] Crisis Hotline resource number 6-654-270-TALK (0995) / or 545. RECOMMENDATIONS: Outpatient follow-up with mental health. was provided the name and contact information for a mental health professional that they can contact should they have any questions or concerns. Alcohol Use Screen (AUDIT-C): Alcohol Screen: SCREEN FOR ALCOHOL (AUDIT-C) An alcohol screening test (AUDIT-C) was negative (score=1). 1. How often did you have a drink containing alcohol in the past year? Consider a drink to be a 12 ounce can or bottle of regular beer, 8 ounces of malt liquor, a 5 ounce glass of table wine, or a 1.5 ounce shot of liquor (like scotch, gin, or vodka). Monthly or less 2. How many drinks containing alcohol did you have on a typical day when you were drinking in the past year? One or two drinks 3. How often did you have six or more drinks on one occasion in the past year? Never Suicide Screen: C-SSRS Screening [place]-Suicide Severity Rating Scale (C-SSRS Screener) 1. Over the past month, have you wished you were or wished you could go to sleep and not wake up? No 2. Over the past month, have you had any actual thoughts of killing yourself? No 3. Over the past month, have you been thinking about how you might do this? Response not required due to responses to other questions. 4. Over the past month, have you had these thoughts and had some intention of acting on them? Response not required due to responses to other questions. 5. Over the past month, have you started to work out or worked out the details of how to kill yourself? Response not required due to responses to other questions. 6. If yes, at any time in the past month did you intend to carry out this plan? Response not required due to responses to other questions. 7. In your lifetime, have you ever done anything, started to do anything, or prepared to do anything to end your life (for example, collected pills, obtained a gun, gave away valuables, went to the roof but didn't jump)? No 8. If YES, was this within the past 3 months? Response not required due to responses to other questions. Depression Monitoring (PHQ-9): PHQ-9 A PHQ-9 screen was performed. The score was 0. 1. Little interest or pleasure in doing things Not at all 2. Feeling down, depressed, or hopeless Not at all 3. Trouble falling or staying asleep, or sleeping too much Not at all 4. Feeling tired or having little energy Not at all 5. Poor appetite or overeating Not at all 6. Feeling bad about yourself or that you are a failure or have let yourself or your family down Not at all 7. Trouble concentrating on things, such as reading the newspaper or watching television Not at all 8. Moving or speaking so slowly that other people could have noticed. Or the opposite being so fidgety or restless that you have been moving around a lot more than usual Not at all 9. Thoughts that you would be better off or of hurting yourself in some way Not at all 10. If you checked off any problems, how DIFFICULT have these problems made it for you to do your work, take care of things at home or get along with other people? Not difficult at all [place]'s PHQ9 score IMPROVED from the most recent score PHQ-9 results discussed with patient PC-MEDICATION RECONCILIATION: The following medication list was reviewed with the patient/caregiver: MRT5 - Allergies/ADRs FACILITY ALLERGY/ADR -------- [id number] MRR1 - Med Reconciliation INCLUDED IN THIS LIST: Alphabetical list of active outpatient prescriptions dispensed from this NH (local) and dispensed from another NH or DoD facility (remote) as well as inpatient orders (local pending and active), local clinic medications, locally documented non-VA medications, and local prescriptions that have or been discontinued in the past 90 days. Non-VA Meds Last Documented On: Aug 25, 2021 NOTE The display of VA prescriptions dispensed from another NH or DoD facility (remote) is limited to active outpatient prescription entries matched to National Drug File at the originating site and may not include some items such as investigational drugs, compounds, etc. NOT INCLUDED IN THIS LIST: Medications self-entered by the patient into personal health records (i.e. [employer]) are NOT included in this list. Non-VA medications documented outside this NH, remote inpatient orders (regardless of status) and remote clinic medications are NOT included in this list. The patient and provider must always discuss medications the patient is taking, regardless of where the medication was dispensed or obtained. OUTPT ACETAMINOPHEN 500MG TAB (Status = Discontinued) TAKE TWO TABLETS BY MOUTH THREE TIMES A DAY NEEDED FOR PAIN OR FEVER - DO NOT EXCEED 4000MG OF ACETAMINOPHEN (APAP) PER DAY FROM ANY AND ALL SOURCES Rx# [id number] Last Released: 06/14/24 Qty/Days Supply: Rx Expiration Date: 04/21/25 Refills Remainin OUTPT ACETAMINOPHEN 500MG TAB (Status = Discontinued) TAKE TWO TABLETS BY MOUTH THREE TIMES A DAY NEEDED FOR PAIN OR FEVER - DO NOT EXCEED 4000MG OF ACETAMINOPHEN (APAP) PER DAY FROM ANY AND ALL SOURCES Rx# [id number] Last Released: 07/28/24 Qty/Days Supply: Rx Expiration Date: 06/19/25 Refills Remainin OUTPT ACETAMINOPHEN 500MG TAB (Status = Active/Suspended) TAKE TWO TABLETS BY MOUTH THREE TIMES A DAY NEEDED FOR PAIN OR FEVER - DO NOT EXCEED 4000MG OF ACETAMINOPHEN (APAP) PER DAY FROM ANY AND ALL SOURCES Rx# [id number] Last Released: 09/03/24 Qty/Days Supply: Rx Expiration Date: 08/10/25 Refills Remainin OUTPT ALBUTEROL 90MCG (CFC-F) 200D ORAL INHL (Status = Active/Suspended) INHALE 2 PUFFS BY MOUTH EVERY 6 HOURS NEEDED Rx# [id number] Last Released: 07/11/24 Qty/Days Supply: Rx Expiration Date: 05/02/25 Refills Remainin Indication: FOR SHORTNESS OF BREATH OUTPT CELECOXIB 200MG CAP (Status = Discontinued) TAKE ONE CAPSULE BY MOUTH TWO TIMES A DAY NEEDED FOR PAIN Rx# [id number] Last Released: 07/23/24 Qty/Days Supply: Rx Expiration Date: 05/02/25 Refills Remainin OUTPT CELECOXIB 200MG CAP (Status = Active/Suspended) TAKE ONE CAPSULE BY MOUTH TWO TIMES A DAY NEEDED FOR PAIN Rx# [id number] Last Released: Qt Supply: Rx Expiration Date: 08/10/25 Refills Remainin OUTPT CETIRIZINE HCL 10MG TAB (Status = Discontinued) TAKE ONE TABLET BY MOUTH EVERY DAY Rx# [id number] Last Released: 07/05/24 Qty/Days Supply: Rx Expiration Date: 01/17/25 Refills Remainin Indication: FOR ALLERGIES OUTPT CETIRIZINE HCL 10MG TAB (Status = Active/Suspended) TAKE ONE TABLET BY MOUTH EVERY DAY Rx# [id number] Last Released: Supply: Rx Expiration Date: 08/10/25 Refills Remainin Indication: FOR ALLERGIES OUTPT CHOLECALCIF 10MCG (D3-400UNIT) TAB (Status = Active/Suspended) TAKE ONE TABLET BY MOUTH DAILY FOR DIETARY SUPPLEMENT Rx# [id number] Last Released: 07/20/24 Qty/Days Supply: 100 Rx Expiration Date: 05/02/25 Refills Remainin OUTPT CYCLOBENZAPRINE HCL 10MG TAB (Status = Active/Suspended) TAKE ONE TABLET BY MOUTH AT BEDTIME NEEDED FOR MUSCLE RELAXATION Rx# [id number] Last Released: 08/08/24 Qty/Days Supply: Rx Expiration Date: 05/02/25 Refills Remainin OUTPT DICLOFENAC NA 1% TOP GEL (Status = Active/Suspended) APPLY 2 GRAMS TOPICALLY FOUR TIMES A DAY NEEDED NEEDED FOR PAIN AND INFLAMMATION. DON'T EXCEED 16 GRAMS DAILY TO ANY AFFECTED LEG AREA. DON'T EXCEED 8 GRAMS DAILY TO ANY AFFECTED ARM AREA. DON'T EXCEED A TOTAL DOSE OF 32 GRAMS DAILY OVER ALL AREAS. *USE DOSING CARD TO MEASURE DOSE.* Rx# [id number] Last Released: 08/15/24 Qty/Days Supply: Rx Expiration Date: 05/02/25 Refills Remainin OUTPT FLUTICAS 250/SALMETEROL 50 INHL DISK 60 (Status = Discontinued) INHALE 1 PUFF BY MOUTH TWICE A DAY FOR SHORTNESS OF BREATH FROM ASTHMA RINSE MOUTH AFTER USE. Rx# [id number] Last Released: 07/06/24 Qty/Days Supply: Rx Expiration Date: 05/02/25 Refills Remainin Indication: FOR SHORTNESS OF BREATH FROM ASTHMA OUTPT FLUTICAS 250/SALMETEROL 50 INHL DISK 60 (Status = Active/Suspended) INHALE 1 PUFF BY MOUTH TWICE A DAY FOR SHORTNESS OF BREATH FROM ASTHMA RINSE MOUTH AFTER USE. Rx# [id number] Last Released: Qt Supply: Rx Expiration Date: 08/10/25 Refills Remainin Indication: FOR SHORTNESS OF BREATH FROM ASTHMA OUTPT FLUTICASONE PROP 50MCG 120D NASAL INHL (Status = Active/Suspended) 2 SPRAYS EACH NOSTRIL AT BEDTIME FOR NASAL SYMPTOMS Rx# [id number] Last Released: 07/20/24 Qty/Days Supply: Rx Expiration Date: 05/02/25 Refills Remainin OUTPT PRAZOSIN HCL 5MG CAP (Status = Active/Suspended) TAKE THREE CAPSULES BY MOUTH AT BEDTIME Rx# [id number] Last Released: 08/27/24 Qty/Days Supply: Rx Expiration Date: 01/19/25 Refills Remainin Indication: FOR NIGHTMARES OR SLEEP DISRUPTION OUTPT PRAZOSIN HCL 5MG CAP (Status = Pending) TAKE 3 CAPSULES BY MOUTH AT BEDTIME Pls hold refill until patient request Login Date: 09/05/24 Qty/Days Supply: Refills Ordered: 3 OUTPT SEMAGLUTIDE WL 2.4MG/0.75ML PEN 0.75ML (Status = Discontinued) INJECT 2.4MG/ONE PEN UNDER THE SKIN WEEKLY FOR OBESITY Rx# [id number] Last Released: 06/06/24 Qty/Days Supply: Rx Expiration Date: 07/24/24 Refills Remainin Indication: OBESITY OUTPT SEMAGLUTIDE WL 2.4MG/0.75ML PEN 0.75ML (Status = Active/Suspended) INJECT 2.4MG/ONE PEN UNDER THE SKIN WEEKLY FOR OBESITY Rx# [id number] Last Released: 08/20/24 Qty/Days Supply: Rx Expiration Date: 07/06/25 Refills Remainin Indication: OBESITY OUTPT SERTRALINE HCL 100MG TAB (Status = Active/Suspended) TAKE TWO TABLETS BY MOUTH EVERY DAY Rx# [id number] Last Released: 07/03/24 Qty/Days Supply: Rx Expiration Date: 01/19/25 Refills Remainin Indication: FOR MENTAL HEALTH OUTPT SERTRALINE HCL 100MG TAB (Status = Pending) TAKE TWO TABLETS BY MOUTH EVERY DAY Pls do not mail refill until patient request. Login Date: 09/05/24 Qty/Days Supply: Refills Ordered: 3 OUTPT SILDENAFIL CITRATE 100MG TAB (Status = Discontinued) TAKE ONE TABLET BY MOUTH NEEDED TAKE 30 TO 60 MINUTES PRIOR TO SEXUAL ACTIVITY; LIMITED TO 6 DOSES PER MONTH Rx# [id number] Last Released: 05/09/24 Qty/Days Supply: Rx Expiration Date: 07/30/24 Refills Remainin Indication: FOR ERECTILE DYSFUNCTION OUTPT SILDENAFIL CITRATE 100MG TAB (Status = Discontinued) TAKE ONE TABLET BY MOUTH NEEDED TAKE 30 TO 60 MINUTES PRIOR TO SEXUAL ACTIVITY; LIMITED TO 6 DOSES PER MONTH Rx# [id number] Last Released: 08/01/24 Qty/Days Supply: Rx Expiration Date: 10/22/24 Refills Remainin Indication: FOR ERECTILE DYSFUNCTION OUTPT SILDENAFIL CITRATE 100MG TAB (Status = Active/Suspended) TAKE ONE TABLET BY MOUTH NEEDED TAKE 30 TO 60 MINUTES PRIOR TO SEXUAL ACTIVITY; LIMITED TO 6 DOSES PER MONTH Rx# [id number] Last Released: Qty/Days Supply: Rx Expiration Date: 11/07/24 Refills Remainin Indication: FOR ERECTILE DYSFUNCTION Remote SYRINGE 3ML/NDL 23G 1.5IN USE 1 SYRINGE INTRAMUSCULARLY WEEKLY FOR TESTOSTERONE INJECTION Last Filled: 08/29/24 (Active at [facility]) Rx Expiration Date: 08/29/25 Days Supply: 84 Remote TESTOSTERONE CYPIONATE 200MG/ML INJ,1ML (IN OIL) INJECT 100MG/0.5ML DEEP INTRAMUSCULARLY WEEKLY FOR LOW TESTOSTERONE Last Filled: 08/30/24 (Active at [facility]) Rx Expiration Date: 02/28/25 Days Supply: 30 OUTPT TIOTROPIUM 2.5MCG/ACTUAT 60D ORAL INHL (Status = Discontinued) INHALE TWO INHALATIONS BY MOUTH EVERY DAY MAX OF TWO INHALATIONS IN 24 HOURS. Rx# [id number] Last Released: 07/09/24 Qty/Days Supply: Rx Expiration Date: 04/27/25 Refills Remainin OUTPT TIOTROPIUM 2.5MCG/ACTUAT 60D ORAL INHL (Status = Active/Suspended) INHALE TWO INHALATIONS BY MOUTH EVERY DAY MAX OF TWO INHALATIONS IN 24 HOURS. Rx# [id number] Last Released: Qt Supply: Rx Expiration Date: 08/10/25 Refills Remainin OUTPT TRAZODONE HCL 100MG TAB (Status = Active/Suspended) TAKE FOUR TABLETS BY MOUTH AT BEDTIME FOR SLEEP Rx# [id number] Last Released: 06/29/24 Qty/Days Supply: Rx Expiration Date: 01/19/25 Refills Remainin Indication: FOR MENTAL HEALTH OUTPT TRAZODONE HCL 100MG TAB (Status = Pending) TAKE FOUR TABLETS BY MOUTH AT BEDTIME FOR SLEEP Pls hold refill until patient request. Login Date: 09/05/24 Qty/ Supply: Refills Ordered: 3 OUTPT TRIAMCINOLONE ACETONIDE 0.1% CREAM (Status = Discontinued) APPLY THIN FILM TOPICALLY TWICE A DAY Rx# [id number] Last Released: 07/23/24 Qty/Days Supply: Rx Expiration Date: 04/14/25 Refills Remainin Indication: FOR SKIN RASH OUTPT TRIAMCINOLONE ACETONIDE 0.1% CREAM (Status = Active) APPLY THIN FILM TOPICALLY TWICE A DAY Rx# [id number] Last Released: 09/04/24 Qty/Days Supply: Rx Expiration Date: 08/10/25 Refills Remainin Indication: FOR SKIN RASH SUPPLIES Potential risks, benefits, and alternative to medications prescribed were discussed with /caregiver who was given an opportunity to ask questions, which were answered to the best of my ability and seemingly to their satisfaction. [place]/caregiver was/were instructed to contact provider (means provided) with any concerns or questions. A list of reconciled medications was mailed or sent via secure messaging to the /caregiver. Time spent with direct medical discussion is more than 10 minutes Total Time Spent with direct medical discussion with Patient,on chart review, documentation,care coordination:66minutes /zainab/ [facility]ACT[facility]- Signed: 09/05/2024 17:45 LUANN MUÑOZ [facility] Sep 24, 2024 07:59 AM PRIMARY CARE NOTE: LOCAL TITLE: PROVIDER/VISIT ACTION STANDARD TITLE: PRIMARY CARE NOTE DATE OF NOTE: SEP 24, 2024@07:59 ENTRY DATE: SEP 24, 2024@07:59:49 AUTHOR: MARIANNE MYERS EXP COSIGNER: URGENCY: STATUS: COMPLETED Patient is requesting a refill of acetaminophen. Forwarding to PACT provider for review and approval. /alison Myers APRN Nurse Practitioner Signed: 09/24/2024 07:59 Receipt Acknowledged By: 09/24/2024 08:12 /alison DAVIS nurse practitioner MARIANNE MYERS [facility] Sep 05, 2024 03:07 PM MENTAL HEALTH CONSULT: LOCAL TITLE: CONSULT/MENTAL HEALTH ASSESSMENT STANDARD TITLE: MENTAL HEALTH CONSULT DATE OF NOTE: SEP 05, 2024@15:07 ENTRY DATE: SEP 05, 2024@15:08:10 AUTHOR: MANJULA LYNCH EXP COSIGNER: URGENCY: STATUS: COMPLETED CONSULT/MENTAL HEALTH ASSESSMENT Has ADDENDA Patient gave verbal consent for this C encounter. The following identifiers were used to verify this patient: . SSN. Telehealth Disclosure: Visit conducted by synchronous telehealth. verbal consent obtained. Location/emergency number confirmed. Environment surveyed and all participants identified. Virtual conference room locked. CHIEF COMPLAINT: I am here for my medications HISTORY OF PRESENT ILLNESS: A 34 year-old male cauc.patient seen Today at the Mental health clinic for first visit after his last provider is for medication management and evaluation of stability. Patient reports he started care in 2019 for management of PTSD,nightmares anxiety and depression.Patient is currently on Trazodone hcl tab 100mg take four tablets by mouth at bedtime for sleep,Prazosin hcl cap,oral 5mg take 3capsules by mouth at bedtime,Sertraline hcl tab 100mg take two tablets by mouth every day.He lives with his and they are managing through well.He manages symptoms by taking rest,playing games,watching TV, listening to music,taking medications and talking with friends and family.He reports no crying spells,anhedonia,lack of energy,not feeling hopeless,helpless,worthles s or burdensome.He denies having any thoughts of harming himself or others. PSYCHIATRIC HISTORY: History of inpatient psychiatric care: Denies outpatient psychiatric care: Denies suicide attempt: Denies problematic substance use: Denies In the last 12 months, any use of- Tobacco: Denies ,stopped chewing couple of years back Alcohol: Social drinker 1 beer in a month Marijuana: Denies Cocaine/crack: Denies Heroin: Denies Inhalants: Denies Stimulants: Denies Misuse of prescriptions: Denies FAMILY PSYCHIATRIC HISTORY: Family history of suicide: Denies mood disorders: Denies psychotic disorders: Denies substance abuse: Denies PSYCHOSOCIAL HISTORY: Hx of neglect/abuse/assault: Denies Relationship state: Patient reports he is and has 7 & 3 yr old kids Living situation: Patient living in own home,patient is employed as a labtech Legal issues: Denies Guardian: Denies MENTAL STATUS EXAM AND RELEVANT PHYSICAL EXAM: Behavior: cooperative responds well to conversation. Speech: clear, not pressured with normal rate, tone, and volume Orientation: alert, oriented to person, place and time Mood: Euthymic Affect: Cooperative and pleasant Thought processes: concrete Thought content: denies current suicidal or homicidal ideations and does not appear to be responding to internal stimuli, denies delusion. Insight: Good Judgment: Intact ROS: Respiration: Patient denies shortness of breath, Speaking in full clear sentences. Urinary: Denies urinary difficulty. GI: Denies constipation, reports good appetite. Neuro: Alert and oriented x 3, denies headache. Cardio: Patient denies chest pain. REVIEW OF PERTINENT SYSTEMS: Pain: Celcoxib 200mg two times a day Neurologic: Denies history of seizures or stroke REVIEW OF LABS/STUDIES: ---- MANUAL CHEMISTRY TEST ---- BLOOD T.GLYCO A1C % BNP CEA Ref range low 5 0 0 Ref range high 7.3 5.6 100 3 % GHb % A1C pg/mL ng/ml - [d] Aug 23, 2024 14:41 5.1 = Test Name Result Units Ref Range Collection DT GLUCOSE 85 mg/dL 70 - 99 08/23/2024 UREA NITROGEN 15 mg/dL 7 - 21 08/23/2024 CREATININE 1.19 H mg/dL .73 -1.18 08/23/2024 SODIUM 141 mmol/L 136 - 145 08/23/2024 POTASSIUM 4.4 mmol/L 3.5 - 4.7 08/23/2024 CHLORIDE 101 mmol/L 98 - 109 08/23/2024 CO2 31 mmol/L 20 - 08/23/2024 CALCIUM, TOTAL 9.7 mg/dL 8.7 -10.4 08/23/2024 PROTEIN, TOTL 7.1 g/dL 5.7 - 8.2 08/23/2024 ALBUMIN 4.7 g/dL 3.4 - 5 08/23/2024 AST 41 H U/L 10 - 37 08/23/2024 ALT 31 U/L 10 - 08/23/2024 BILI,TOTAL 0.4 mg/dL .2 - 1.2 08/23/2024 ALKAL PHOS 69 U/L 45 - 117 08/23/2024 EGFR 81 - 08/23/2024 ANION GAP 9 mmol/L 5 - 15 08/23/2024 WBC 8.3 K/uL 4 - 11 08/23/2024 RBC 5.54 M/uL 4.2 - 5.7 08/23/2024 HGB 16.2 g/dL 13 - 17 08/23/2024 HCT 47.3 % 40 - 51 08/23/2024 MCV 85.4 fL 82 - 99 08/23/2024 MCH 29.2 pg 27 - 34 08/23/2024 MCHC 34.2 g/dL 31 - 37 08/23/2024 RDW-CV 12.2 % 0 - 15 08/23/[address] 369 K/uL 130 - 400 08/23/2024 MPV 10.1 fl 8 - 12 08/23/2024 TSH3 ULTRA EIA 1.292 uIU/mL .55 -4.78 08/23/2024 VITALS 10/31/23 T: 98.8 F (37.1 C) P: 70 R: 16 B/P: 118/76 Wt: 228.60 lb (103.69 kg) Body Mass Index: 30* Pulse Oximetry: 98% Pain: 0 - No pain IS THIS NOTE BEING COMPLETED BY A PHYSICIAN, PHYSICIAN PAPER CUP MACHINE OPERATOR OR NURSE PRACTITIONER? [ YES ] Discussion of risk/benefits of medications. Patient/caregiver verbalizes understanding and intent to comply. Potential risks, benefits, and alternative to medications prescribed were discussed with [place]/caregiver who was given an opportunity to ask questions, which were answered to the best of my ability and seemingly to their satisfaction. [place]/caregiver was/were instructed to contact provider (means provided) with any concerns or questions. INFORMED CONSENT All relevant aspects of suggested treatment and its alternatives, including no treatment, have been discussed with the patient in language that he could understand. This discussion includes the nature, indication, benefits/risks, side effects, and likelihood of success of each alternative treatment option. The patient demonstrated adequate comprehension of the information. This has been given the opportunity to ask questions. Slag Expander did not make any attempt to coerce [place] to consent to this treatment; willingly gives informed consent to treatment after discussion regarding possible risks/benefits/adverse effects of medications prescribed. DIAGNOSIS/ASSESSMENT: Chronic post-traumatic stress disorder following combat Depressive disorder Insomnia disorder related to another mental disorder ASSESSMENT: A 34year-old cauc.,male patient seen today for first visit after his last provider for for medication management and evaluation.Information was obtained from the patient and the patients chart.I did review the progress notes in the patients chart.I did reconcile the patients medications.The patient appears to be a good historian. Patient has history of Depression,Post-traumatic stress disorder (PTSD) and insomnia.Patient is alert and oriented x3,responds appropriately to conversation, no acute distress noted and mood is stable.Patient denies suicidal/homicidal ideation, denies visual or auditory hallucination. Patient reports he is usually unable to sleep without his medication.He gets 6hours so sleep with meds. Patient reports he has trialled several meds that did not work in the past and denies need for med adjutment this visit as these current meds works for him . Patient is currently on -Trazodone hcl tab 100mg take four tablets by mouth at bedtime for sleep,Prazosin hcl cap,oral 5mg take 3 capsules by mouth at bedtime and Sertraline hcl tab 100mg take two tablets by mouth every day. He reports he has been med compliant,denies side effects and reports effectiveness.He endorsed stable mood and continuation of current meds. Patient last.Annual labs current.All medication scripts filled,patient educated on benefits side and adverse effects of medications.Patient verbalized understanding.Patient RTC in 3months appointment or earlier if needed. CONTROLS PROJECT ENGINEER GOALS: Mood stability Good health Medication and treatment compliance TARGET DATE: Ongoing SHORT TERM GOALS: Improving mood Medication and treatment compliance PLAN INCLUDING OTHER SERVICES INVOLVED IN CARE 1. Medication: continue -Trazodone hcl tab 100mg take four tablets by mouth at bedtime for sleep -Prazosin hcl cap,oral 5mg take 3 capsules by mouth at bedtime -Sertraline hcl tab 100mg take two tablets by mouth every day 2.Education provided regarding diagnosis/symptoms/side effects of medications, prognosis and the need for medication and treatment compliance 3.Monitor symptoms,suicidal ideations, side effects, risks and benefits, and mental status at each medication management appointment. 4.THERAPY: provided education for the benefits of healthy lifestyle changes/sleep hygiene/exercise/diet and avoidance of illicit drugs and alcohol. 5.Opportunity given for questions. 6.Return to clinic for follow up in 2month or earlier if needed. 7.Safety: was provided with information on the [facility] Crisis Hotline resource number 6-875-130-TALK (1169) / or 819. RECOMMENDATIONS: Outpatient follow-up with mental health. [place] was provided the name and contact information for a mental health professional that they can contact should they have any questions or concerns. Alcohol Use Screen (AUDIT-C): Alcohol Screen: SCREEN FOR ALCOHOL (AUDIT-C) An alcohol screening test (AUDIT-C) was negative (score=1). 1. How often did you have a drink containing alcohol in the past year? Consider a drink to be a 12 ounce can or bottle of regular beer, 8 ounces of malt liquor, a 5 ounce glass of table wine, or a 1.5 ounce shot of liquor (like scotch, gin, or vodka). Monthly or less 2. How many drinks containing alcohol did you have on a typical day when you were drinking in the past year? One or two drinks 3. How often did you have six or more drinks on one occasion in the past year? Never Suicide Screen: C-SSRS Screening [place]-Suicide Severity Rating Scale (C-SSRS Screener) 1. Over the past month, have you wished you were or wished you could go to sleep and not wake up? No 2. Over the past month, have you had any actual thoughts of killing yourself? No 3. Over the past month, have you been thinking about how you might do this? Response not required due to responses to other questions. 4. Over the past month, have you had these thoughts and had some intention of acting on them? Response not required due to responses to other questions. 5. Over the past month, have you started to work out or worked out the details of how to kill yourself? Response not required due to responses to other questions. 6. If yes, at any time in the past month did you intend to carry out this plan? Response not required due to responses to other questions. 7. In your lifetime, have you ever done anything, started to do anything, or prepared to do anything to end your life (for example, collected pills, obtained a gun, gave away valuables, went to the roof but didn't jump)? No 8. If YES, was this within the past 3 months? Response not required due to responses to other questions. Depression Monitoring (PHQ-9): PHQ-9 A PHQ-9 screen was performed. The score was 0. 1. Little interest or pleasure in doing things Not at all 2. Feeling down, depressed, or hopeless Not at all 3. Trouble falling or staying asleep, or sleeping too much Not at all 4. Feeling tired or having little energy Not at all 5. Poor appetite or overeating Not at all 6. Feeling bad about yourself or that you are a failure or have let yourself or your family down Not at all 7. Trouble concentrating on things, such as reading the newspaper or watching television Not at all 8. Moving or speaking so slowly that other people could have noticed. Or the opposite being so fidgety or restless that you have been moving around a lot more than usual Not at all 9. Thoughts that you would be better off or of hurting yourself in some way Not at all 10. If you checked off any problems, how DIFFICULT have these problems made it for you to do your work, take care of things at home or get along with other people? Not difficult at all 's PHQ9 score IMPROVED from the most recent score PHQ-9 results discussed with patient PC-MEDICATION RECONCILIATION: The following medication list was reviewed with the patient/caregiver: MRT5 - Allergies/ADRs FACILITY ALLERGY/ADR -------- [facility] [address] MRR1 - Med Reconciliation INCLUDED IN THIS LIST: Alphabetical list of active outpatient prescriptions dispensed from this NH (local) and dispensed from another NH or DoD facility (remote) as well as inpatient orders (local pending and active), local clinic medications, locally documented non-VA medications, and local prescriptions that have or been discontinued in the past 90 days. Non-VA Meds Last Documented On: Aug 25, 2021 NOTE The display of VA prescriptions dispensed from another NH or [facility] facility (remote) is limited to active outpatient prescription entries matched to National Drug File at the originating site and may not include some items such as investigational drugs, compounds, etc. NOT INCLUDED IN THIS LIST: Medications self-entered by the patient into personal health records (i.e. [employer]) are NOT included in this list. Non-VA medications documented outside this NH, remote inpatient orders (regardless of status) and remote clinic medications are NOT included in this list. The patient and provider must always discuss medications the patient is taking, regardless of where the medication was dispensed or obtained. OUTPT ACETAMINOPHEN 500MG TAB (Status = Discontinued) TAKE TWO TABLETS BY MOUTH THREE TIMES A DAY NEEDED FOR PAIN OR FEVER - DO NOT EXCEED 4000MG OF ACETAMINOPHEN (APAP) PER DAY FROM ANY AND ALL SOURCES Rx# [id number] Last Released: 06/14/24 Qty/Days Supply: Rx Expiration Date: 04/21/25 Refills Remainin OUTPT ACETAMINOPHEN 500MG TAB (Status = Discontinued) TAKE TWO TABLETS BY MOUTH THREE TIMES A DAY NEEDED FOR PAIN OR FEVER - DO NOT EXCEED 4000MG OF ACETAMINOPHEN (APAP) PER DAY FROM ANY AND ALL SOURCES Rx# [id number] Last Released: 07/28/24 Qty/Days Supply: Rx Expiration Date: 06/19/25 Refills Remainin OUTPT ACETAMINOPHEN 500MG TAB (Status = Active/Suspended) TAKE TWO TABLETS BY MOUTH THREE TIMES A DAY NEEDED FOR PAIN OR FEVER - DO NOT EXCEED 4000MG OF ACETAMINOPHEN (APAP) PER DAY FROM ANY AND ALL SOURCES Rx# [id number] Last Released: 09/03/24 Qty/Days Supply: Rx Expiration Date: 08/10/25 Refills Remainin OUTPT ALBUTEROL 90MCG (CFC-F) 200D ORAL INHL (Status = Active/Suspended) INHALE 2 PUFFS BY MOUTH EVERY 6 HOURS NEEDED Rx# [id number] Last Released: 07/11/24 Qty/Days Supply: Rx Expiration Date: 05/02/25 Refills Remainin Indication: FOR SHORTNESS OF BREATH OUTPT CELECOXIB 200MG CAP (Status = Discontinued) TAKE ONE CAPSULE BY MOUTH TWO TIMES A DAY NEEDED FOR PAIN Rx# [id number] Last Released: 07/23/24 Qty/Days Supply: Rx Expiration Date: 05/02/25 Refills Remainin OUTPT CELECOXIB 200MG CAP (Status = Active/Suspended) TAKE ONE CAPSULE BY MOUTH TWO TIMES A DAY NEEDED FOR PAIN Rx# [id number] Last Released: Qt Supply: Rx Expiration Date: 08/10/25 Refills Remainin OUTPT CETIRIZINE HCL 10MG TAB (Status = Discontinued) TAKE ONE TABLET BY MOUTH EVERY DAY Rx# [id number] Last Released: 07/05/24 Qty/Days Supply: Rx Expiration Date: 01/17/25 Refills Remainin Indication: FOR ALLERGIES OUTPT CETIRIZINE HCL 10MG TAB (Status = Active/Suspended) TAKE ONE TABLET BY MOUTH EVERY DAY Rx# [id number] Last Released: Qt Supply: Rx Expiration Date: 08/10/25 Refills Remainin Indication: FOR ALLERGIES OUTPT CHOLECALCIF 10MCG (D3-400UNIT) TAB (Status = Active/Suspended) TAKE ONE TABLET BY MOUTH DAILY FOR DIETARY SUPPLEMENT Rx# [id number] Last Released: 07/20/24 Qty/Days Supply: Rx Expiration Date: 05/02/25 Refills Remainin OUTPT CYCLOBENZAPRINE HCL 10MG TAB (Status = Active/Suspended) TAKE ONE TABLET BY MOUTH AT BEDTIME NEEDED FOR MUSCLE RELAXATION Rx# [id number] Last Released: 08/08/24 Qty/Days Supply: Rx Expiration Date: 05/02/25 Refills Remainin OUTPT DICLOFENAC NA 1% TOP GEL (Status = Active/Suspended) APPLY 2 GRAMS TOPICALLY FOUR TIMES A DAY NEEDED NEEDED FOR PAIN AND INFLAMMATION. DON'T EXCEED 16 GRAMS DAILY TO ANY AFFECTED LEG AREA. DON'T EXCEED 8 GRAMS DAILY TO ANY AFFECTED ARM AREA. DON'T EXCEED A TOTAL DOSE OF 32 GRAMS DAILY OVER ALL AREAS. *USE DOSING CARD TO MEASURE DOSE.* Rx# [id number] Last Released: 08/15/24 Qty/Days Supply: Rx Expiration Date: 05/02/25 Refills Remainin OUTPT FLUTICAS 250/SALMETEROL 50 INHL DISK 60 (Status = Discontinued) INHALE 1 PUFF BY MOUTH TWICE A DAY FOR SHORTNESS OF BREATH FROM ASTHMA RINSE MOUTH AFTER USE. Rx# [id number] Last Released: 07/06/24 Qty/Days Supply: Rx Expiration Date: 05/02/25 Refills Remainin Indication: FOR SHORTNESS OF BREATH FROM ASTHMA OUTPT FLUTICAS 250/SALMETEROL 50 INHL DISK 60 (Status = Active/Suspended) INHALE 1 PUFF BY MOUTH TWICE A DAY FOR SHORTNESS OF BREATH FROM ASTHMA RINSE MOUTH AFTER USE. Rx# [id number] Last Released: Qt Supply: Rx Expiration Date: 08/10/25 Refills Remainin Indication: FOR SHORTNESS OF BREATH FROM ASTHMA OUTPT FLUTICASONE PROP 50MCG 120D NASAL INHL (Status = Active/Suspended) 2 SPRAYS EACH NOSTRIL AT BEDTIME FOR NASAL SYMPTOMS Rx# [id number] Last Released: 07/20/24 Qty/Days Supply: Rx Expiration Date: 05/02/25 Refills Remainin OUTPT PRAZOSIN HCL 5MG CAP (Status = Active/Suspended) TAKE THREE CAPSULES BY MOUTH AT BEDTIME Rx# [id number] Last Released: 08/27/24 Qty/Days Supply: Rx Expiration Date: 01/19/25 Refills Remainin Indication: FOR NIGHTMARES OR SLEEP DISRUPTION OUTPT PRAZOSIN HCL 5MG CAP (Status = Pending) TAKE 3 CAPSULES BY MOUTH AT BEDTIME Pls hold refill until patient request Login Date: 09/05/24 Qty/Days Supply: Refills Ordered: 3 OUTPT SEMAGLUTIDE WL 2.4MG/0.75ML PEN 0.75ML (Status = Discontinued) INJECT 2.4MG/ONE PEN UNDER THE SKIN WEEKLY FOR OBESITY Rx# [id number] Last Released: 06/06/24 Qty/Days Supply: Rx Expiration Date: 07/24/24 Refills Remainin Indication: OBESITY OUTPT SEMAGLUTIDE WL 2.4MG/0.75ML PEN 0.75ML (Status = Active/Suspended) INJECT 2.4MG/ONE PEN UNDER THE SKIN WEEKLY FOR OBESITY Rx# [id number] Last Released: 08/20/24 Qty/Days Supply: Rx Expiration Date: 07/06/25 Refills Remainin Indication: OBESITY OUTPT SERTRALINE HCL 100MG TAB (Status = Active/Suspended) TAKE TWO TABLETS BY MOUTH EVERY DAY Rx# [id number] Last Released: 07/03/24 Qty/Days Supply: Rx Expiration Date: 01/19/25 Refills Remainin Indication: FOR MENTAL HEALTH OUTPT SERTRALINE HCL 100MG TAB (Status = Pending) TAKE TWO TABLETS BY MOUTH EVERY DAY Pls do not mail refill until patient request. Login Date: 09/05/24 Qty/Days Supply: Refills Ordered: 3 OUTPT SILDENAFIL CITRATE 100MG TAB (Status = Discontinued) TAKE ONE TABLET BY MOUTH NEEDED TAKE 30 TO 60 MINUTES PRIOR TO SEXUAL ACTIVITY; LIMITED TO 6 DOSES PER MONTH Rx# [id number] Last Released: 05/09/24 Qty/Days Supply: Rx Expiration Date: 07/30/24 Refills Remainin Indication: FOR ERECTILE DYSFUNCTION OUTPT SILDENAFIL CITRATE 100MG TAB (Status = Discontinued) TAKE ONE TABLET BY MOUTH NEEDED TAKE 30 TO 60 MINUTES PRIOR TO SEXUAL ACTIVITY; LIMITED TO 6 DOSES PER MONTH Rx# [id number] Last Released: 08/01/24 Qty/Days Supply: Rx Expiration Date: 10/22/24 Refills Remainin Indication: FOR ERECTILE DYSFUNCTION OUTPT SILDENAFIL CITRATE 100MG TAB (Status = Active/Suspended) TAKE ONE TABLET BY MOUTH NEEDED TAKE 30 TO 60 MINUTES PRIOR TO SEXUAL ACTIVITY; LIMITED TO 6 DOSES PER MONTH Rx# [id number] Last Released: Qty/Days Supply: Rx Expiration Date: 11/07/24 Refills Remainin Indication: FOR ERECTILE DYSFUNCTION Remote SYRINGE 3ML/NDL 23G 1.5IN USE 1 SYRINGE INTRAMUSCULARLY WEEKLY FOR TESTOSTERONE INJECTION Last Filled: 08/29/24 (Active at [facility]) Rx Expiration Date: 08/29/25 Days Supply: 84 Remote TESTOSTERONE CYPIONATE 200MG/ML INJ,1ML (IN OIL) INJECT 100MG/0.5ML DEEP INTRAMUSCULARLY WEEKLY FOR LOW TESTOSTERONE Last Filled: 08/30/24 (Active at [facility]) Rx Expiration Date: 02/28/25 Days Supply: 30 OUTPT TIOTROPIUM 2.5MCG/ACTUAT 60D ORAL INHL (Status = Discontinued) INHALE TWO INHALATIONS BY MOUTH EVERY DAY MAX OF TWO INHALATIONS IN 24 HOURS. Rx# [id number] Last Released: 07/09/24 Qty/Days Supply: Rx Expiration Date: 04/27/25 Refills Remainin OUTPT TIOTROPIUM 2.5MCG/ACTUAT 60D ORAL INHL (Status = Active/Suspended) INHALE TWO INHALATIONS BY MOUTH EVERY DAY MAX OF TWO INHALATIONS IN 24 HOURS. Rx# [id number] Last Released: Qty/Days Supply: Rx Expiration Date: 08/10/25 Refills Remainin OUTPT TRAZODONE HCL 100MG TAB (Status = Active/Suspended) TAKE FOUR TABLETS BY MOUTH AT BEDTIME FOR SLEEP Rx# [id number] Last Released: 06/29/24 Qty/Days Supply: Rx Expiration Date: 01/19/25 Refills Remainin Indication: FOR MENTAL HEALTH OUTPT TRAZODONE HCL 100MG TAB (Status = Pending) TAKE FOUR TABLETS BY MOUTH AT BEDTIME FOR SLEEP Pls hold refill until patient request. Login Date: 09/05/24 Qty/Days Supply: Refills Ordered: 3 OUTPT TRIAMCINOLONE ACETONIDE 0.1% CREAM (Status = Discontinued) APPLY THIN FILM TOPICALLY TWICE A DAY Rx# [id number] Last Released: 07/23/24 Qty/Days Supply: 8030 Rx Expiration Date: 04/14/25 Refills Remainin Indication: FOR SKIN RASH OUTPT TRIAMCINOLONE ACETONIDE 0.1% CREAM (Status = Active) APPLY THIN FILM TOPICALLY TWICE A DAY Rx# [id number] Last Released: 09/04/24 Qty/Days Supply: 80/30 Rx Expiration Date: 08/10/25 Refills Remainin Indication: FOR SKIN RASH SUPPLIES Potential risks, benefits, and alternative to medications prescribed were discussed with /caregiver who was given an opportunity to ask questions, which were answered to the best of my ability and seemingly to their satisfaction. [place]/caregiver was/were instructed to contact provider (means provided) with any concerns or questions. A list of reconciled medications was mailed or sent via secure messaging to the /caregiver. Time spent with direct medical discussion is more than 10 minutes Total Time Spent with direct medical discussion with Patient,on chart review, documentation,care coordination:66minutes /zainab/ MANJULA LYNCH PMHNP MENTAL HEALTH NURSE PRACTITIONER- Signed: 09/05/2024 17:45 09/27/2024 ADDENDUM STATUS: COMPLETED Alerting MH Provider to enter RTC 2 month follow up. /zainab/ Luann Muñoz, MSN RN [facility] RN Signed: 09/27/2024 09:40 Receipt Acknowledged By: * AWAITING SIGNATURE * MANJULA LYNCH [facility]
--- OUTSIDE RECORDS SUMMARY | 2024-12-08 17:45 | XMS_ITS | Encounter Summary ---
Author Name [facility] [place] Organization [facility] [place] Address [address] [place] [id number] Care Team Providers Care Manufacturing Leader Name Role Phone ASHWINI DAVIS Primary Care Provider [facility] e Insurance Providers: All historical and current [...] section includes the information on record at [place] for the Encounter. Date/Time Encounter Type Encounter Description Reason Provider Source Sep 26, 2024 02:30 PM Outpatient Encounter PRIMARY CARE/MEDICINE ICD-10-CM Z00.01 Encounter for general adult medical exam w abnormal findings ASHWINI DAVIS Yaz Encounter Template Text not used by [place] Assessments - Encounter Diagnoses This section includes the primary and secondary diagnoses documented for the Encounter. Date/Time Primary/Secondary Diagnosis Diagnosis Name Provider Source Sep 26, 2024 02:48 PM PRIMARY Encounter for general adult medical exam w abnormal findings GONZALO DAVIS [facility] Sep 26, 2024 02:48 PM SECONDARY Allergic rhinitis, unspecified GONZALO DAVIS [facility] Sep 26, 2024 02:48 PM SECONDARY Local infection of the skin and subcutaneous tissue, unsp GONZALO DAVIS [facility] Sep 26, 2024 02:48 PM SECONDARY Low back pain, unspecified DAVISGONZALO GARCIA [facility] Sep 26, 2024 02:48 PM SECONDARY Obesity, unspecified DAVIS,[facility] Sep 26, 2024 02:48 PM SECONDARY Unspecified asthma, uncomplicated DAVIS,[facility] Sep 26, 2024 02:48 PM SECONDARY Unspecified mood [affective] disorder [facility] Plan of Treatment: Future Appointments (+ 6 months) and Future Tests (+/- 45 days) The Plan of Treatment section includes future care activities for the patient from [facility] [place] [facility] This section includes future appointments and future orders which are active, pending or scheduled. Future Appointments This section includes appointments that were scheduled to occur 6 months from the date of the Encounter, up to a maximum of 20 appointments. The data comes from all [place] treatment facilities. Appointment Date/Time Appointment Type Appointme nt Facility Name November 15, 2024 08:00 AM AMBULATORY - PSYCHIATRY [facility] Dec 03, 2024 08:00 AM AMBULATORY - MEDICINE [facility] Jan 10, 2025 03:30 PM AMBULATORY - NONE [facility] Feb 06, 2025 08:00 AM AMBULATORY - PSYCHIATRY [facility] Feb 11, 2025 03:00 PM AMBULATORY - NONE [facility] Mar 11, 2025 02:40 PM AMBULATORY - NONE [facility] Vital Signs: All taken on the encounter date This section contains inpatient and outpatient Vital Signs collected on the date of the Encounter. Date/Time Temperature Pulse Blood Pressure Respiratory Rate SP02 Pain Height Weight Body Mass Index Source Sep 26, 2024 02:27 PM 132/90 [facility] Sep 26, 2024 02:23 PM 99.3 92 135/92 16 98 239 32 [facility] Social History: Smoking Status (Most current) and Tobacco Use (All prior to encounter date) This section includes the most current, and the historical, smoking and tobacco- related health factors from the [place] facility where the Encounter took place. Current Smoking Status This section includes the most current smoking, or tobacco-related health factor, from the [place] facility where the Encounter took place. Date/Time Current Smoking Status Jonny mahan Sep 26, 2024 02:30 PM VA-TOBACCO NEVER USED CIGARETTES [facility] Tobacco Use History This section includes a history of the smoking, or tobacco-related health factors, that were collected on or before the date of the Encounter. The data comes from the [place] facility where the Encounter took place. Date/Time Smoking Status/Tobacco Use Comment F acility Sep 26, 2024 02:30 PM VA-TOBACCO USE FOR SONIA OTHER TYPE [facility] Aug 23, 2023 03:00 PM VA-TOBACCO FORMER USER [facility] Aug 23, 2023 03:00 PM VA-TOBACCO QUIT 1 TO < 5 YRS [facility] 2023 10:30 AM AH-BPR SMOKING DEPLOYMENT NO [facility] Jul 27, 2022 10:00 AM VA-TOBACCO FORMER USER [facility] Jul 27, 2022 10:00 AM VA-TOBACCO QUIT < 1 YEAR [facility] Aug 07, 2021 01:30 PM VA-TOBACCO USE 5 TO 15 YEARS [facility] Aug 07, 2021 01:30 PM VA-TOBACCO USE ADVICE [facility] Aug 07, 2021 01:30 PM VA-TOBACCO USE PAPERBOARD BOXES ESTIMATOR NO [facility] Aug 07, 2021 01:30 PM VA-TOBACCO USE MED NO [facility] Aug 07, 2021 01:30 PM VA-TOBACCO USE WI 30 MIN OF WAKEUP [facility] Aug 07, 2021 01:30 PM VA-TOBACCO USER EVERY DAY [facility] Encounter Notes: All associated encounter notes This section contains the clinical notes associated to the Encounter. Date/Time Encounter Note(s) Provider Source Sep 26, 2024 02:25 PM PRIMARY CARE NOTE: LOCAL TITLE: [facility] STANDARD TITLE: PRIMARY CARE NOTE DATE OF NOTE: SEP 26, 2024@14:25 ENTRY DATE: SEP 25, 2024@15:14:46 AUTHOR: ASHWINI DAVIS EXP COSIGNER: URGENCY: STATUS: COMPLETED HPI: 34 MALE is here for annual exam. Normal oral intake and appetite. Normal urinary output and bowel motility. Reports mood and sleep has been stable. Working with mental health team for medication management. Reports taking testosterone therapy weekly, managed by endocrinology. Denies concerns. Levels normal at 553. Reports he did get scraped on the left side of his face by his dog's paws and has had redness, tenderness, swelling to area. Denies open lesion or drainage. Denies red streaking. Denies fever or chills. Civilian pcp: None Specialists: Mental health, podiatry, pulmonology, orthopedics, endocrinology Recent labs: 08/23/2024; testosterone, urine study, CBC, A1c, vitamin D, TSH normal. Creatinine just barely elevated at 1.19. Lipid panel reviewed and HDL has declined to 44. CMP with elevated AST at 41. == ROS: GENERAL: Patient denies fever, chills, weight loss CARDIOVASCULAR: Patient denies chest pain, palpitations, edema PULMONARY: Patient denies shortness of breath or cough GASTROINTESTINAL: Patient denies nausea, vomiting, or abdominal pain GENITOURINARY: Patient denies dysuria or urinary frequency MUSCULOSKELETAL: Patient chronic low back pain, chronic knee pain, chronic foot pain SKIN: Patient denies rashes, pruritus. Left side of face with redness, tenderness, swelling. NEUROLOGY: Patient denies headache, dizziness, syncope PSYCH: Patient denies recent changes in mood or sleep issues == Social Hx: Currently lives at home alone. Tobacco: Denies Etoh: Denies MJ/Drug Use: Denies == Family history: Mother: living, healthy Father: , emphysema == PMHx includes but is not limited to: Active problems - Computerized Problem List is the source for the following: PROBLEM 1. Exposure to Potentially Hazardous Substance ([facility] [id number]) 2. Asthma 3. Allergic rhinitis 4. Equinus contracture of the ankle 5. Obstructive sleep apnea 6. Chronic low back pain 7. Pain of bilateral knee joints 8. Chronic pain of left foot 9. Obesity 10. Continuous dependence on chewing tobacco 11. Chronic post-traumatic stress disorder following combat 12. Anxiety disorder 13. 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 == ALLERGIES: ORLISTAT MEDS: Active Outpatient Medications (including Supplies): Active Outpatient Medications Status = 1) ACETAMINOPHEN 500MG TAB TAKE TWO TABLETS BY MOUTH THREE ACTIVE (S) TIMES A DAY NEEDED FOR PAIN OR FEVER - DO NOT EXCEED 4000MG OF ACETAMINOPHEN (APAP) PER DAY FROM ANY AND ALL SOURCES 2) ALBUTEROL 90MCG (CFC-F) 200D ORAL INHL INHALE 2 PUFFS BY ACTIVE (S) MOUTH EVERY 6 HOURS NEEDED Indication: FOR SHORTNESS OF BREATH 3) CELECOXIB 200MG CAP TAKE ONE CAPSULE BY MOUTH TWO TIMES A ACTIVE (S) DAY NEEDED FOR PAIN 4) CETIRIZINE HCL 10MG TAB TAKE ONE TABLET BY MOUTH EVERY DAY ACTIVE (S) Indication: FOR ALLERGIES 5) CHOLECALCIF 10MCG (D3-400UNIT) TAB TAKE ONE TABLET BY MOUTH ACTIVE (S) DAILY FOR DIETARY SUPPLEMENT 6) CYCLOBENZAPRINE HCL 10MG TAB TAKE ONE TABLET BY MOUTH AT ACTIVE (S) BEDTIME NEEDED FOR MUSCLE RELAXATION 7) DICLOFENAC NA 1% TOP GEL APPLY 2 GRAMS TOPICALLY FOUR TIMES ACTIVE (S) A DAY NEEDED NEEDED FOR PAIN AND INFLAMMATION. DON'T EXCEED 16 GRAMS DAILY TO ANY AFFECTED LEG AREA. DON'T EXCEED 8 GRAMS DAILY TO ANY AFFECTED ARM AREA. DON'T EXCEED A TOTAL DOSE OF 32 GRAMS DAILY OVER ALL AREAS. *USE DOSING CARD TO MEASURE DOSE.* 8) FLUTICAS 250/SALMETEROL 50 INHL DISK 60 INHALE 1 PUFF BY ACTIVE (S) MOUTH TWICE A DAY RINSE MOUTH AFTER USE. Indication: FOR SHORTNESS OF BREATH FROM ASTHMA 9) FLUTICASONE PROP 50MCG 120D NASAL INHL 2 SPRAYS EACH NOSTRIL ACTIVE (S) AT BEDTIME FOR NASAL SYMPTOMS 10) PRAZOSIN HCL 5MG CAP TAKE THREE CAPSULES BY MOUTH AT BEDTIME HOLD Indication: FOR NIGHTMARES OR SLEEP DISRUPTION 11) SEMAGLUTIDE WL 2.4MG/0.75ML PEN 0.75ML INJECT 2.4MG/ONE PEN ACTIVE (S) UNDER THE SKIN WEEKLY FOR Indication: OBESITY 12) SERTRALINE HCL 100MG TAB TAKE TWO TABLETS BY MOUTH EVERY DAY HOLD Indication: FOR MENTAL HEALTH 13) SILDENAFIL CITRATE 100MG TAB TAKE ONE TABLET BY MOUTH ACTIVE (S) NEEDED TAKE 30 TO 60 MINUTES PRIOR TO SEXUAL ACTIVITY; LIMITED TO 6 DOSES PER MONTH Indication: FOR ERECTILE DYSFUNCTION 14) TIOTROPIUM 2.5MCG/ACTUAT 60D ORAL INHL INHALE TWO ACTIVE (S) INHALATIONS BY MOUTH EVERY DAY MAX OF TWO INHALATIONS IN 24 HOURS. 15) TRAZODONE HCL 100MG TAB TAKE FOUR TABLETS BY MOUTH AT HOLD BEDTIME FOR SLEEP Indication: FOR MENTAL HEALTH 16) TRIAMCINOLONE ACETONIDE 0.1% CREAM APPLY THIN FILM TOPICALLY ACTIVE (S) TWICE A DAY Indication: FOR SKIN RASH == VITAL SIGNS: Temperature: 99.3 F [37.4 C] (09/26/2024 14:23) Pulse: 92 (09/26/2024 14:23) Respirations: 16 (09/26/2024 14:23) BP: 132/90 (09/26/2024 14:27) Weight: 239 lb [108.41 kg] (09/26/2024 14:23) Height: 73 in [185.4 cm] (08/25/2021 14:27) BMI: BMI: - NO HEIGHTS FOUND == EXAM: Gen: NAD, VSS, afebrile, well-nourished and groomed, overweight HEENT: Non icteric sclera, EOMI, TMs normal bilat, MMM, oropharynx clear Neck: Supple, no adenopathy. Thyroid without masses. CV: RRR S1/2, No M/R/G Pulm: CTAB, No wheezing or crackles, Normal inspiratory effort on RA Abd: S/NT/ND, No masses, hepatolmegaly, splenomegaly. Extremities: Normal range of motion on exam. Pedal pulses intact bilat. Steady gait. Skin: Area of skin near left eye with abrasion, redness, soft tissue swelling, tenderness. No red streaking or drainage. Neuro: AAO x3, speech clear, moves all extremities, no focal deficits. Psych: good mood and affect, no suicidal or homicidal ideation, no immediate mental health needs == Assessment/Plan: 1. General Exam: Continue with routine care. 2. Asthma: Stable with current inhaler use. Refills are up-to-date. Avoid known triggers as able. 3. Allergic rhinitis: Stable with current medication, denies concerns. Avoid triggers as able. 4. Chronic low back pain: Denies any acute complaints at this visit. Continue with [id number] medication and supportive care. 5. Obesity: Continue follow-up with pharmacy team for ongoing weight loss instructions and medication. Heart healthy diet and exercise reviewed. 6. Mood disorder: Continue taking medication as ordered from mental health team. Continue with mental health follow-up appointments as scheduled. No acute discerns today on exam. Acute resources reviewed. 7. Skin infection: Start cephalexin, prescription sent to pharmacy as urgent. Declined paper prescription to take to pharmacy today. Supportive care reviewed. Follow-up urgently for decline in healing. == LABS reviewed today in clinic with patient. Repeat labs ordered for 6 months == Follow up in 1 year or sooner with additional concerns == I spent 18 minutes amount of time the day of this clinic visit preparing to see the patient, obtaining and/or reviewing separately obtained history, performing a medically appropriate examination and/or evaluation counseling the patient/family/caregiver, ordering medications, tests, or procedures, referring to and communicating with other health clinical care coordinator, documenting clinical information in the electronic or other health record, independently interpreting results, communicating results to the patient/family/caregiver, and care coordination. == Health Maintenance: * Yearly eye exam - advised pt to schedule an appt * Immunizations - declined update == PC-MEDICATION RECONCILIATION: The following medication list was reviewed with the patient/caregiver: MRT5 - Allergies/ADRs FACILITY ALLERGY/ADR -------- [facility] [address] MRR1 - Med Reconciliation INCLUDED IN THIS LIST: Alphabetical list of active outpatient prescriptions dispensed from this [place] (local) and dispensed from another [place] or [facility] facility (remote) as well as inpatient orders (local pending and active), local clinic medications, locally documented non-VA medications, and local prescriptions that have or been discontinued in the past 90 days. Non-VA Meds Last Documented On: Aug 25, 2021 NOTE The display of VA prescriptions dispensed from another [place] or [facility] facility (remote) is limited to active outpatient prescription entries matched to National Drug File at the originating site and may not include some items such as investigational drugs, compounds, etc. NOT INCLUDED IN THIS LIST: Medications self-entered by the patient into personal health records (i.e. [employer]) are NOT included in this list. Non-VA medications documented outside this [place], remote inpatient orders (regardless of status) and [...] DAY FROM ANY AND ALL SOURCES Rx# [id number] Last Released: 07/28/24 Qty/Days Supply: Rx Expiration Date: 06/19/25 Refills Remainin OUTPT ACETAMINOPHEN 500MG TAB (Status = Discontinued) TAKE TWO TABLETS BY MOUTH THREE TIMES A DAY NEEDED FOR PAIN OR FEVER - DO NOT EXCEED 4000MG OF ACETAMINOPHEN (APAP) PER DAY FROM ANY AND ALL SOURCES Rx# [id number] Last Released: 09/20/24 Qty/Days Supply: Rx Expiration Date: 08/10/25 Refills Remainin OUTPT ACETAMINOPHEN 500MG TAB (Status = Active/Suspended) TAKE TWO TABLETS BY MOUTH THREE TIMES A DAY NEEDED FOR PAIN OR FEVER - DO NOT EXCEED 4000MG OF ACETAMINOPHEN (APAP) PER DAY FROM ANY AND ALL SOURCES Rx# [id number] Last Released: QtyDays Supply: Rx Expiration Date: 09/25/25 Refills Remainin OUTPT ALBUTEROL 90MCG (CFC-F) 200D ORAL INHL (Status = Active/Suspended) INHALE 2 PUFFS BY MOUTH EVERY 6 HOURS NEEDED Rx# [id number] Last Released: 07/11/24 Qty/Days Supply: Rx Expiration Date: 05/02/25 Refills Remainin Indication: FOR SHORTNESS OF BREATH OUTPT CELECOXIB 200MG CAP (Status = Discontinued) TAKE ONE CAPSULE BY MOUTH TWO TIMES A DAY NEEDED FOR PAIN Rx# [id number] Last Released: 07/23/24 Qty/Days Supply: Rx Expiration Date: 05/02/25 Refills Remainin OUTPT CELECOXIB 200MG CAP (Status = Active/Suspended) TAKE ONE CAPSULE BY MOUTH TWO TIMES A DAY NEEDED FOR PAIN Rx# [id number] Last Released: Qt Supply: Rx Expiration Date: 08/10/25 Refills Remainin OUTPT CEPHALEXIN 500MG CAP (Status = Pending) TAKE 1 CAPSULE BY MOUTH TWICE A DAY STAT expedite Login Date: 09/26/24 Qty/Days Supply: 14/01 Refills Ordered: 0 OUTPT CETIRIZINE HCL 10MG TAB (Status = Discontinued) TAKE ONE TABLET BY MOUTH EVERY DAY Rx# [id number] Last Released: 07/05/24 Qty/Days Supply: Rx Expiration Date: 01/17/25 Refills Remainin Indication: FOR ALLERGIES OUTPT CETIRIZINE HCL 10MG TAB (Status = Active/Suspended) TAKE ONE TABLET BY MOUTH EVERY DAY Rx# [id number] Last Released: Qty/Days Supply: Rx Expiration Date: 08/10/25 Refills Remainin Indication: FOR ALLERGIES OUTPT CHOLECALCIF 10MCG (D3-400UNIT) TAB (Status = Active/Suspended) TAKE ONE TABLET BY MOUTH DAILY FOR DIETARY SUPPLEMENT Rx# [id number] Last Released: 07/20/24 Qty/Days Supply: Rx Expiration Date: 05/02/25 Refills Remainin OUTPT CYCLOBENZAPRINE HCL 10MG TAB (Status = Active/Suspended) TAKE ONE TABLET BY MOUTH AT BEDTIME NEEDED FOR MUSCLE RELAXATION Rx# [id number] Last Released: 09/07/24 Qty/Days Supply: Rx Expiration Date: 05/02/25 Refills [...] *USE DOSING CARD TO MEASURE DOSE.* Rx# [id number] Last Released: 09/17/24 Qty/Days Supply: Rx Expiration Date: 05/02/25 Refills Remainin OUTPT FLUTICAS 250/SALMETEROL 50 INHL DISK 60 (Status = Discontinued) INHALE 1 PUFF BY MOUTH TWICE A DAY FOR SHORTNESS OF BREATH FROM ASTHMA RINSE MOUTH AFTER USE. Rx# [id number] Last Released: 07/06/24 Qty/Days Supply: Rx Expiration Date: 05/02/25 Refills Remainin Indication: FOR SHORTNESS OF BREATH FROM ASTHMA OUTPT FLUTICAS 250/SALMETEROL 50 INHL DISK 60 (Status = Active/Suspended) INHALE 1 PUFF BY MOUTH TWICE A DAY FOR SHORTNESS OF BREATH FROM ASTHMA RINSE MOUTH AFTER USE. Rx# [id number] Last Released: 09/21/24 Qty/Days Supply: Rx Expiration Date: 08/10/25 Refills Remainin Indication: FOR SHORTNESS OF BREATH FROM ASTHMA OUTPT FLUTICASONE PROP 50MCG 120D NASAL INHL (Status = Active/Suspended) 2 SPRAYS EACH NOSTRIL AT BEDTIME FOR NASAL SYMPTOMS Rx# [id number] Last Released: 07/20/24 Qty/Days Supply: Rx Expiration Date: 05/02/25 Refills Remainin OUTPT PRAZOSIN HCL 5MG CAP (Status = Discontinued) TAKE THREE CAPSULES BY MOUTH AT BEDTIME Rx# [id number] Last Released: 08/27/24 Qty/Days Supply: Rx Expiration Date: 01/19/25 Refills Remainin Indication: FOR NIGHTMARES OR SLEEP DISRUPTION OUTPT PRAZOSIN HCL 5MG CAP (Status = On Hold) TAKE THREE CAPSULES BY MOUTH AT BEDTIME FOR NIGHTMARES OR SLEEP DISRUPTION Rx# [id number] Last Released: Qt Supply: Rx Expiration Date: 09/06/25 Refills Remainin Indication: FOR NIGHTMARES OR SLEEP DISRUPTION OUTPT SEMAGLUTIDE WL 2.4MG/0.75ML PEN 0.75ML (Status = Discontinued) INJECT 2.4MG/ONE PEN UNDER THE SKIN WEEKLY FOR OBESITY Rx# [id number] Last Released: 06/06/24 Qty/Days Supply: Rx Expiration Date: 07/24/24 Refills Remainin Indication: OBESITY OUTPT SEMAGLUTIDE WL 2.4MG/0.75ML PEN 0.75ML (Status = Active/Suspended) INJECT 2.4MG/ONE PEN UNDER THE SKIN WEEKLY FOR OBESITY Rx# [id number] Last Released: 08/20/24 Qty/Days Supply: Rx Expiration Date: 07/06/25 Refills Remainin Indication: OBESITY OUTPT SERTRALINE HCL 100MG TAB (Status = Discontinued) TAKE TWO TABLETS BY MOUTH EVERY DAY Rx# [id number] Last Released: 07/03/24 Qty/Days Supply: Rx Expiration Date: 01/19/25 Refills Remainin Indication: FOR MENTAL HEALTH OUTPT SERTRALINE HCL 100MG TAB (Status = On Hold) TAKE TWO TABLETS BY MOUTH EVERY DAY FOR MENTAL HEALTH Rx# [id number] Last Released: Qt Supply: Rx Expiration Date: 09/06/25 Refills Remainin Indication: FOR MENTAL HEALTH OUTPT SILDENAFIL CITRATE 100MG TAB (Status = Discontinued) TAKE ONE TABLET BY MOUTH NEEDED TAKE 30 TO 60 MINUTES PRIOR TO SEXUAL ACTIVITY; LIMITED TO 6 DOSES PER MONTH Rx# [id number] Last Released: 05/09/24 Qty/Days Supply: Rx Expiration Date: 07/30/24 Refills Remainin Indication: FOR ERECTILE DYSFUNCTION OUTPT SILDENAFIL CITRATE 100MG TAB (Status = Discontinued) TAKE ONE TABLET BY MOUTH NEEDED TAKE 30 TO 60 MINUTES PRIOR TO SEXUAL ACTIVITY; LIMITED TO 6 DOSES PER MONTH Rx# [id number] Last Released: 08/01/24 Qty/Days Supply: Rx Expiration Date: 10/22/24 Refills Remainin Indication: FOR ERECTILE DYSFUNCTION OUTPT SILDENAFIL CITRATE 100MG TAB (Status = Active/Suspended) TAKE ONE TABLET BY MOUTH NEEDED TAKE 30 TO 60 MINUTES PRIOR TO SEXUAL ACTIVITY; LIMITED TO 6 DOSES PER MONTH Rx# [id number] Last Released: Qty/Days Supply: Rx Expiration Date: 11/07/24 Refills Remainin Indication: FOR ERECTILE DYSFUNCTION Remote SYRINGE 3ML/NDL 23G 1.5IN USE 1 SYRINGE INTRAMUSCULARLY WEEKLY FOR TESTOSTERONE INJECTION Last Filled: 11/11/24 (Active/Suspended at [facility]) Rx Expiration Date: 08/29/25 Days Supply: 84 Remote TESTOSTERONE CYPIONATE 200MG/ML INJ,1ML (IN OIL) INJECT 100MG/0.5ML DEEP INTRAMUSCULARLY WEEKLY FOR LOW TESTOSTERONE Last Filled: 10/19/24 (Active/Suspended at [facility]) Rx Expiration Date: 02/28/25 Days Supply: 30 OUTPT TIOTROPIUM 2.5MCG/ACTUAT 60D ORAL INHL (Status = Discontinued) INHALE TWO INHALATIONS BY MOUTH EVERY DAY MAX OF TWO INHALATIONS IN 24 HOURS. Rx# [id number] Last Released: 07/09/24 Qty/Days Supply: Rx Expiration Date: 04/27/25 Refills Remainin OUTPT TIOTROPIUM 2.5MCG/ACTUAT 60D ORAL INHL (Status = Active/Suspended) INHALE TWO INHALATIONS BY MOUTH EVERY DAY MAX OF TWO INHALATIONS IN 24 HOURS. Rx# [id number] Last Released: Qty/ Supply: Rx Expiration Date: 08/10/25 Refills Remainin OUTPT TRAZODONE HCL 100MG TAB (Status = Discontinued) TAKE FOUR TABLETS BY MOUTH AT BEDTIME FOR SLEEP Rx# [id number] Last Released: 06/29/24 Qty/Days Supply: Rx Expiration Date: 01/19/25 Refills Remainin Indication: FOR MENTAL HEALTH OUTPT TRAZODONE HCL 100MG TAB (Status = On Hold) TAKE FOUR TABLETS BY MOUTH AT BEDTIME FOR MENTAL HEALTH FOR SLEEP Rx# [id number] Last Released: Qty/Days Supply: 360/90 Rx Expiration Date: 09/06/25 Refills Remainin Indication: FOR MENTAL HEALTH OUTPT TRIAMCINOLONE ACETONIDE 0.1% CREAM (Status = Discontinued) APPLY THIN FILM TOPICALLY TWICE A DAY Rx# [id number] Last Released: 07/23/24 Qty/Days Supply: 80/30 Rx Expiration Date: 04/14/25 Refills Remainin Indication: FOR SKIN RASH OUTPT TRIAMCINOLONE ACETONIDE 0.1% CREAM (Status = Active/Suspended) APPLY THIN FILM TOPICALLY TWICE A DAY Rx# [id number] Last Released: 09/04/24 Qty/Days Supply: 8030 Rx Expiration Date: 08/10/25 Refills Remainin Indication: FOR SKIN RASH SUPPLIES Potential risks, benefits, and alternative to medications prescribed were discussed with [place]/caregiver who was given an opportunity to ask questions, which were answered to the best of my ability and seemingly to their satisfaction. [place]/caregiver was/were instructed to contact provider (means provided) with any concerns or questions. A list of reconciled medications was provided to the [place]/caregiver. /zainab/ ASHWINI DAVIS nurse practitioner Signed: 09/26/2024 14:48 ASHWINI DAVIS [facility] Sep 26, 2024 02:18 PM NURSING NOTE: LOCAL TITLE: KAREN/PREVMED STANDARD TITLE: NURSING NOTE DATE OF NOTE: SEP 26, 2024@14:18 ENTRY DATE: SEP 26, 2024@14:18:11 AUTHOR: DAWNA ROCK EXP COSIGNER: URGENCY: STATUS: COMPLETED TWO OR MORE PATIENT IDENTIFIERS REQUIRED FULL NAME Date IS BEING SEEN IN THE CLINIC TODAY FOR AN ANNUAL APPOINTMENT. CONCERNS: NONE PCP: [facility] SPECIAL[facility]: [facility] ([facility]), POD, PULM, ORTHO, ENDO ([facility]) Info Only: [facility] Video Connect Capable: Influenza Immunization: Deferral / Refusal The patient declines to receive the recommended dose of seasonal influenza vaccine. Immunization: INFLUENZA, UNSPECIFIED FORMULATION Refusal Reason: PATIENT DECISION Patient refuses all immunization(s) in the FLU group Date Documented: 09/26/24 14:24 Sexual Orientation: The patient thinks of their sexual orientation as: Straight or Heterosexual RHS Screen: RHS Screen Session Format: Face to Face Environmental Check Upon inquiry, the individual reports that the environment is safe to proceed. Informed Consent to Screen and Document The individual consents to proceed with screening. The individual consents to documentation of responses. PRIMARY SCREEN: In the past 12 months, how often did a current or former intimate partner (e.g., boyfriend, girlfriend, , , sexual partner): 1. Scream or curse at you Never 2. Insult or talk down to you Never 3. Threaten you with harm Never 4. Physically hurt you Never 5. Force or pressure you to have sexual contact against your will, or when you were unable to say no Never The HITS tool (items 1-4 above) is [place] copyright protected by Servando Wright MD, and the user has full rights to use it throughout the [place] system. PRIMARY SCREEN RESULT: The Primary Screen is NEGATIVE. The individual answered never to all forms of IPV above (i.e., answered never to all 5 items) The individual accepts education and/or resources: No EDUCATION: Other: Homelessness/Food Insecurity Screen: In the past 2 months, have you been living in stable housing that you own, rent, or stay in as part of a household? Yes - Living in stable housing. Are you worried or concerned that in the next 2 months you may NOT have stable housing that you own, rent, or stay in as part of a household? No - Not worried about housing near future The [place] reports the following: Within the past 12 months, you worried whether your food would run out before you got money to buy more. Never true Within the past 12 months, the food you bought just didn't last and you didn't have money to get more. Never true KAREN-ADVANCE DIRECTIVES: Advance care planning is the process for identifying and communicating an individual's values and preferences regarding future health care. An advance directive is a written statement regarding preferences about future health care decisions in the event that individual becomes unable to make those decisions. Notification of Rights Related to Advance Directives: Written notification not provided. ADVANCE DIRECTIVE: Do you have Advance Directive? NO The patient wishes to receive information about or assistance with Advance Care Planning and/or Advance Directive: No Patient refused/declined Advance Directive assistance at this time. KAREN-BLOOD PRESSURE >140/90: BP: 135/92 (09/26/2024 14:23) Did you take your Blood Pressure Medication today? Patient does not take Blood Pressure Medication/s. Have you consumed any caffeine within the last 30 minutes? YES Have you used any nicotine and/or nicotine products within the last 30 minutes? NO Blood Pressure rechecked: 132/90 MOVE!: MOVE! (Managing Overweight/Obesity for Veterans Everywhere) HEIGHT: 73 in [185.4 cm] (08/25/2021 14:27) WEIGHT: 239 lb [108.41 kg] (09/26/2024 14:23) BODY MASS INDEX: BMI: - NO HEIGHTS FOUND 'MOVE'---MANAGING OVERWEIGHT/OBESE VETERANS EVERYWHERE! Are you interested in speaking with a nutrition assistant baseball coach (dietitian)? Dietitians, exercise therapists, and healthy behavior coaches will work with you to create a customized plan that includes meal preparation, exercise guidance, and motivation to lose weight. Patient declines referral. KAREN-EDUCATION ASSESSMENT: `````````````````````````` ```````````` ANNUAL EDUCATION NEEDS/BARRIER ASSESSMENT Primary healthcare language: Latvian Barriers to Learning: Physical: None Cognitive: None Socioeconomic: None Preferred Learning Methods: Demonstration - Watching and the Doing `````````````````````````` ```````````` KAREN-PT AT RISK INCAPACITATED SCREEN: 1) Does the patient meet any of the criteria for being considered incapacitated? 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 The [place] reports no use of a wheelchair for mobility at least 75% of the time. Tobacco Use Screening: The patient has never smoked cigarettes. The patient formerly used other types of tobacco. Hepatitis C Testing: Patient declines HCV lab test. Pneumococcal Conjugate Vaccine (PCV15/PCV20/PCV21): Refuses PCV vaccine Immunization: PNEUMOCOCCAL CONJUGATE, UNSPECIFIED FORMULATION Refusal Reason: PATIENT DECISION Patient refuses all immunization(s) in the PneumoPCV group Date Documented: 09/26/24 14:26 Stress: In the last 6 months, [place] identified the following causes of stress or worry: DIVORCE COVID-19 Immunization: Refused Moderna Monovalent COVID-19 vaccine Immunization: COVID-19 (MODERNA), MRNA, LNP-S, PF, 50 MCG/0.5 ML (AGES 12 + YEARS) Refusal Reason: PATIENT DECISION Patient refuses all immunization(s) in the COVID-19 group Date Documented: 09/26/24 14: /zainab/ ADALID GARVIN LPN Signed: 09/26/2024 14:28 [facility]
--- OUTSIDE RECORDS SUMMARY | 2024-12-08 17:45 | XMS_ITS | Clinical Summary ---
Author Organization [facility] Address [address] [place] [address] Care Team Providers Care Advertising Dispatch Clerk Name Role Phone Unavailable Primary Care Provider Unavailabl e Social History Tobacco Use Types Packs/Day Years Used Date Smoking Tobacco: Never Assessed Sex and Gender Information Value Date Recorded Sex Assigned at Not on file Legal Sex Male 2:16 PM CDT Gender Identity Not on file Sexual Orientation Not on file Plan of Treatment Health Maintenance Due Date Last Done Comments Hepatitis C Virus (HCV) Screening 1990 Influenza Immunization (#1) 2024 05/03/2019, 1 07/12/2017 SARS-COV-2 Immunization ( season) 2024 Respiratory Syncytial Virus (RSV) Immunization (Adult) (1 - 1-dose 75+ series) 01/18/2063 Hepatitis B Immunization Completed 998, 08/14/1997, 07/17/1997 DTaP/Tdap/Td Immunization Discontinued 2023, 01/10/2002, 02/13/1992, Additional history exists TdaP Immunization Completed 08/23/2023 Meningococcal Immunization (ACWY) Aged Out No longer eligible based on patient's age to complete this topic Pneumococcal Immunization Combined Aged Out No longer eligible based on patient's age to complete this topic Rotavirus Immunization Aged Out No lo nger eligible based on patient's age to complete this topic Insurance [employer]
--- OUTSIDE RECORDS SUMMARY | 2024-12-08 17:45 | XMS_ITS | Encounter Summary ---
Author Name [facility] Organization [facility] Address [address] [place] [address] Care Team Providers Care Healthcare Sales Representative Name Role Phone ASHWINI DAVIS Primary Care [...] section includes the information on record at [place] for the Encounter. Date/Time Encounter Type Encounter Description Reason Provider Source November 15, 2024 08:00 AM PSYTX W PT W E/M 30 [facility] - IND ICD-10-CM F43.12 Post-traumatic stress disorder, chronic CRIS,JUAN CARLOS RE B I[facility] Encounter Template Text not used by [place] Assessments - Encounter Diagnoses This section includes the primary and secondary diagnoses documented for the Encounter. Date/Time Primary/Secondary Diagnosis Diagnosis Name Provider Source November 15, 2024 09:00 AM PRIMARY Post-traumatic stress disorder, chronic CRIS,JUAN CARLOS RE B [facility] November 15, 2024 09:00 AM SECONDARY Insomnia, unspecified CRIS,JUAN CARLOS RE B [facility] November 15, 2024 09:00 AM SECONDARY Mental disorder, not otherwise specified CRIS,JUAN CARLOS RE B [facility] November 15, 2024 09:00 AM SECONDARY activity JUAN CARLOS LYNCH [facility] November 15, 2024 09:00 AM SECONDARY Other specified depressive episodes JUAN CARLOS LYNCH [facility] Plan of Treatment: Future Appointments (+ 6 months) and Future Tests (+/- 45 days) The Plan of Treatment section includes future care activities for the patient from all [facility] This section includes future appointments and future orders which are active, pending or scheduled. Future Appointments This section includes appointments that were scheduled to occur 6 months from the date of the Encounter, up to a maximum of 20 appointments. The data comes from all [facility]. Appointment Date/Time Appointment Type Appointme nt Facility Name Dec 03, 2024 08:00 AM AMBULATORY - MEDICINE [facility] Jan 10, 2025 03:30 PM AMBULATORY - NONE [facility] Feb 06, 2025 08:00 AM AMBULATORY - PSYCHIATRY [facility] Feb 11, 2025 03:00 PM AMBULATORY - NONE [facility] Mar 11, 2025 02:40 PM AMBULATORY - NONE [facility] Active, Pending, and Scheduled Orders This section includes a listing of several types of active, pending, and scheduled orders, including clinic medications orders, diagnostic test orders, procedure orders and consult orders; where the start date of the order is 45 days before the date of the Encounter or 45 days after the date of theEncounter. The data comes from all [facility]. Test Date/Time Test Type Test Details Facility Name Dec 14, 2024 12:00 AM Laboratory - Chemistry Order TESTOSTERONE, FREE PANEL RED/NO-GEL SERUM SP [facility] Dec 14, 2024 12:00 AM Laboratory - Chemistry Order CBC BLOOD SP [facility] Dec 14, 2024 12:00 AM Laboratory - Chemistry Order COMPREHENSIVE METABOLIC PANEL GREEN LI/HEP BLD/PLAS PLASMA [facility] Dec 14, 2024 12:00 AM Laboratory - Chemistry Order LIPID PANEL (STL) GREEN LI/HEP BLD/PLAS PLASMA [facility] Dec 14, 2024 12:00 AM Laboratory - Chemistry Order HGA1C BLOOD SP [facility] Social History: Smoking Status (Most current) and Tobacco Use (All prior to encounter date) This section includes the most current, and the historical, smoking and tobacco- related health factors from the [place] facility where the Encounter took place. Current Smoking Status This section includes the most current smoking, or tobacco-related health factor, from the [place] facility where the Encounter took place. Date/Time Current Smoking Status Comment Erinn mahan Sep 26, 2024 02:30 PM VA-TOBACCO NEVER USED CIGARETTES [facility] Tobacco Use History This section includes a history of the smoking, or tobacco-related health factors, that were collected on or before the date of the Encounter. The data comes from the [place] facility where the Encounter took place. Date/Time Smoking Status/Tobacco Use Comment Birgit acsigrid Sep 26, 2024 02:30 PM VA-TOBACCO USE FOR SONIA OTHER TYPE [facility] Aug 23, 2023 03:00 PM VA-TOBACCO FORMER USER [facility] Aug 23, 2023 03:00 PM VA-TOBACCO QUIT 1 TO < 5 YRS [facility] 2023 10:30 AM -BPR SMOKING DEPLOYMENT NO [facility] Jul 27, 2022 10:00 AM VA-TOBACCO FORMER USER [facility] Jul 27, 2022 10:00 AM VA-TOBACCO QUIT < 1 YEAR [facility] Aug 07, 2021 01:30 PM VA-TOBACCO USE 5 TO 15 YEARS [facility] Aug 07, 2021 01:30 PM VA-TOBACCO USE ADVICE [facility] Aug 07, 2021 01:30 PM VA-TOBACCO USE CONSULTING SALES MANAGER NO [facility] Aug 07, 2021 01:30 PM VA-TOBACCO USE MED NO [facility] Aug 07, 2021 01:30 PM VA-TOBACCO USE WI 30 MIN OF WAKEUP [facility] Aug 07, 2021 01:30 PM VA-TOBACCO USER EVERY DAY [facility] Encounter Notes: All associated encounter notes This section contains the clinical notes associated to the Encounter. Date/Time Encounter Note(s) Provider Source November 15, 2024 07:54 AM MENTAL HEALTH NOTE: LOCAL TITLE: MENTAL HEALTH/TREATMENT NOTE STANDARD TITLE: MENTAL HEALTH NOTE DATE OF NOTE: NOVEMBER 15, 2024@07:54 ENTRY DATE: NOVEMBER 15, 2024@07:54:23 AUTHOR: MANJULA LYNCH EXP COSIGNER: URGENCY: STATUS: COMPLETED Patient gave verbal consent for this [facility] encounter. The following identifiers were used to verify this patient: . SSN. Telehealth Disclosure: Visit conducted by synchronous telehealth. verbal consent obtained. Location/emergency number confirmed. Environment surveyed and all participants identified. Virtual conference room locked. TREATMENT THIS VISIT: Medication review, supportive psychotherapy Was pharmacological management performed? [ YES ] IS THIS NOTE BEING COMPLETED BY A PHYSICIAN, PHYSICIAN PAINT STRIPING MACHINE OPERATOR OR NURSE PRACTITIONER? [ YES ] Discussion of risk/benefits of medications. Patient/caregiver verbalizes understanding and intent to comply. Potential risks, benefits, and alternative to medications prescribed were discussed with /caregiver who was given an opportunity to ask questions, which were answered to the best of my ability and seemingly to their satisfaction. [place]/caregiver was/were instructed to contact provider (means provided) [...] been given the opportunity to ask questions. Brewery Pumper did not make any attempt to coerce to consent to this treatment; willingly gives informed consent to treatment after discussion regarding possible risks/benefits/adverse effects of medications prescribed. DIAGNOSES AND PROBLEMS TREATED THIS VISIT: SIGNIFICANT ISSUES/SYMPTOMS/PROBLEMS AND PROGRESS TOWARD GOALS: SUBJECTIVE:I am doing okay A 34 year-old male cauc.patient seen Today on [facility] 11/15/24 at the Mental health clinic for first visit after his last provider is for medication management and follow up visit. .Patient is currently on Trazodone hcl tab 100mg take four tablets by mouth at bedtime for sleep,Prazosin hcl cap,oral 5mg [id number] by mouth at bedtime,Sertraline hcl tab 100mg take two tablets by mouth every day. Patient reports he is doing well and his PTSD symptoms are well controlled with meds.Patient reports comapliance and denues side effects with meds. Patient reports he is currently from ,she has 2 kids of her own and they have one kid together.Mandy says is using his PTSD against him and trying to take the kid away from him.He says he is trying to get some form of evaluation to present in cour for that.Brewery Pumper infromed patient provider do not physician underwriter such legal letters but he could go to [facility] to request for his document. Patient reports 5-7hours hours, denies SI, denies use of street drug,seldom uses alcohol,denies nicotine products use.Patient reports he started care in 2019 for management of PTSD,nightmares anxiety and depression..He lives with his and they are managing [...] NOTE BEING COMPLETED BY A PHYSICIAN, PHYSICIAN PAINT STRIPING MACHINE OPERATOR OR NURSE PRACTITIONER? [ YES ] Discussion of risk/benefits of medications. Patient/caregiver verbalizes understanding and intent to comply. Potential risks, benefits, and alternative to medications prescribed were discussed with /caregiver who was given an opportunity to ask questions, which were answered to the best of my ability and seemingly to their satisfaction. /caregiver was/were instructed to contact provider (means provided) [...] demonstrated adequate comprehension of the information. This [place] has been given the opportunity to ask questions. Brewery Pumper did not make any attempt to coerce to consent to this treatment; [place] willingly gives informed consent to treatment after discussion regarding possible risks/benefits/adverse effects of medications prescribed. DIAGNOSIS/ASSESSMENT: Chronic post-traumatic stress disorder following combat Depressive disorder Insomnia disorder related to another mental disorder ASSESSMENT: A 34year-old cauc.,male patient seen today for fOLLOW up visit after his last provider for for medication management.Information was obtained from the patient and the [...] unable to sleep without his medication.He gets 7hours so sleep with meds. .Patient is currently on Trazodone hcl tab 100mg take four tablets by mouth at bedtime for sleep,Prazosin hcl cap,oral 5mg [id number] by mouth at bedtime,Sertraline hcl tab 100mg take two tablets by mouth every day. Patient reports he is doing well and his PTSD symptoms are well controlled with meds.Patient reports comapliance and denues side effects with meds. Patient reports he is currently from ,she has 2 kids of her own and they have one kid together.Arturokarrijose j says is using his PTSD against him and trying to take the kid away from him.He says he is trying to get some form of evaluation to present in cour for that.Brewery Pumper infromed patient provider do not physician underwriter such legal letters but he could go to [facility] to request for his document. He reports he has been med compliant,denies side effects and reports effectiveness.He endorsed stable mood and continuation of current meds. Patient last.Annual labs current.All medication scripts filled,patient educated on benefits side and adverse effects of medications.Patient verbalized understanding.Patient RTC in 3months appointment or earlier if needed. ACCOUNT PROCESSOR GOALS: Mood stability Good health Medication and [...] mental status at each medication management appointment. 4.THERAPY:(16mins)provided education for the benefits of healthy lifestyle changes/sleep hygiene/exercise/diet and avoidance of illicit drugs and alcohol. 5.Opportunity given for questions. 6.Return to clinic for follow up in 2month or earlier if needed. 7.Safety: [place] was provided with information on the [facility] Crisis Hotline resource number 1-827-613-TALK (6078) / or 170. RECOMMENDATIONS: Outpatient follow-up with mental health. was [...] past year? Never Suicide Screen: C-SSRS Screening Pledger-Suicide Severity Rating Scale (C-SSRS Screener) 1. Over [...] recent score PHQ-9 results discussed with patient Time spent with direct medical discussion is more than 10 minutes Total Time Spent with direct medical discussion with Patient,on chart review, documentation,care coordination: 36inutes PC-MEDICATION RECONCILIATION: The following medication list was reviewed with the patient/caregiver: MRT5 - Allergies/ADRs FACILITY ALLERGY/ADR -------- [facility] MRR1 - Med Reconciliation INCLUDED IN THIS LIST: Alphabetical list of active outpatient prescriptions dispensed from this [place] (local) and dispensed from another [place] or [facility] facility (remote) as well as inpatient orders (local pending and active), local clinic medications, locally documented non-VA medications, and local prescriptions that have or been discontinued in the past 90 days. Non-VA Meds Last Documented On: Aug 25, 2021 NOTE The display of VA prescriptions dispensed from another [place] or [facility] facility (remote) is limited to active outpatient prescription entries matched to National Drug File at the originating site and may not include some items such as investigational drugs, compounds, etc. NOT INCLUDED IN THIS LIST: Medications self-entered by the patient into personal health records (i.e. [employer]) are NOT included in this list. Non-VA medications documented outside this [place], remote inpatient orders (regardless of status) and [...] DAY FROM ANY AND ALL SOURCES Rx# [id number] Last Released: 09/20/24 Qty/Days Supply: Rx Expiration Date: 08/10/25 Refills Remainin OUTPT ACETAMINOPHEN 500MG TAB (Status = Active/Suspended) TAKE TWO TABLETS BY MOUTH THREE TIMES A DAY NEEDED FOR PAIN OR FEVER - DO NOT EXCEED 4000MG OF ACETAMINOPHEN (APAP) PER DAY FROM ANY AND ALL SOURCES Rx# [id number] Last Released: 11/01/24 Qty/Days Supply: 100/ Rx Expiration Date: 09/25/25 Refills Remainin OUTPT ALBUTEROL 90MCG (CFC-F) 200D ORAL INHL (Status = Active/Suspended) INHALE 2 PUFFS BY MOUTH EVERY 6 HOURS NEEDED Rx# [id number] Last Released: 10/01/24 Qty/Days Supply: Rx Expiration Date: 05/02/25 Refills Remainin Indication: FOR SHORTNESS OF BREATH OUTPT CELECOXIB 200MG CAP (Status = Active/Suspended) TAKE ONE CAPSULE BY MOUTH TWO TIMES A DAY NEEDED FOR PAIN Rx# [id number] Last Released: 10/09/24 Qty/Days Supply: 180 Rx Expiration Date: 08/10/25 Refills Remainin OUTPT CEPHALEXIN 500MG CAP (Status = ) TAKE ONE CAPSULE BY MOUTH TWICE A DAY FOR INFECTION Rx# [id number] Last Released: 09/26/24 Qty/Days Supply: 14/01 Rx Expiration Date: 10/26/24 Refills Remainin Indication: FOR INFECTION OUTPT CETIRIZINE HCL 10MG TAB (Status = Active/Suspended) TAKE ONE TABLET BY MOUTH EVERY DAY Rx# [id number] Last Released: 09/27/24 Qty/Days Supply: Rx Expiration Date: 08/10/25 Refills Remainin Indication: FOR ALLERGIES OUTPT CHOLECALCIF 10MCG (D3-400UNIT) TAB (Status = Active/Suspended) TAKE ONE TABLET BY MOUTH DAILY FOR DIETARY SUPPLEMENT Rx# [id number] Last Released: 10/10/24 Qty/Days Supply: 100 Rx Expiration Date: 05/02/25 Refills Remainin OUTPT CYCLOBENZAPRINE HCL 10MG TAB (Status = Active) TAKE ONE TABLET BY MOUTH AT BEDTIME NEEDED FOR MUSCLE RELAXATION Rx# [id number] Last Released: 10/10/24 Qty/Days Supply: Rx Expiration Date: 05/02/25 Refills Remainin OUTPT DICLOFENAC NA 1% TOP GEL (Status = Discontinued) APPLY 2 GRAMS TOPICALLY FOUR TIMES A DAY NEEDED NEEDED FOR PAIN AND INFLAMMATION. DON'T EXCEED 16 GRAMS DAILY TO ANY AFFECTED LEG AREA. DON'T EXCEED 8 GRAMS DAILY TO ANY AFFECTED ARM AREA. DON'T EXCEED A TOTAL DOSE OF 32 GRAMS DAILY OVER ALL AREAS. *USE DOSING CARD TO MEASURE DOSE.* Rx# [id number] Last Released: 10/16/24 Qty/Days Supply: Rx Expiration Date: 05/02/25 Refills Remainin OUTPT DICLOFENAC NA 1% TOP GEL (Status = Active) APPLY 2 GRAMS TOPICALLY FOUR TIMES A DAY NEEDED NEEDED FOR PAIN AND INFLAMMATION. DON'T EXCEED 16 GRAMS DAILY TO ANY AFFECTED LEG AREA. DON'T EXCEED 8 GRAMS DAILY TO ANY AFFECTED ARM AREA. DON'T EXCEED A TOTAL DOSE OF 32 GRAMS DAILY OVER ALL AREAS. *USE DOSING CARD TO MEASURE DOSE.* Rx# [id number] Last Released: Qt Supply: Rx Expiration Date: 11/01/25 Refills Remainin OUTPT FLUTICAS 250/SALMETEROL 50 INHL DISK 60 (Status = Active/Suspended) INHALE 1 PUFF BY MOUTH TWICE A DAY FOR SHORTNESS OF BREATH FROM ASTHMA RINSE MOUTH AFTER USE. Rx# [id number] Last Released: 09/21/24 Qty/Days Supply: Rx Expiration Date: 08/10/25 Refills Remainin Indication: FOR SHORTNESS OF BREATH FROM ASTHMA OUTPT FLUTICASONE PROP 50MCG 120D NASAL INHL (Status = Active/Suspended) 2 SPRAYS EACH NOSTRIL AT BEDTIME FOR NASAL SYMPTOMS Rx# [id number] Last Released: 10/10/24 Qty/Days Supply: Rx Expiration Date: 05/02/25 Refills Remainin OUTPT PRAZOSIN HCL 5MG CAP (Status = Discontinued) TAKE THREE CAPSULES BY MOUTH AT BEDTIME Rx# [id number] Last Released: 08/27/24 Qty/Days Supply: Rx Expiration Date: 01/19/25 Refills Remainin Indication: FOR NIGHTMARES OR SLEEP DISRUPTION OUTPT PRAZOSIN HCL 5MG CAP (Status = On Hold) TAKE THREE CAPSULES BY MOUTH AT BEDTIME FOR NIGHTMARES OR SLEEP DISRUPTION Rx# [id number] Last Released: Qt Supply: Rx Expiration Date: 09/06/25 Refills Remainin Indication: FOR NIGHTMARES OR SLEEP DISRUPTION OUTPT SEMAGLUTIDE WL 2.4MG/0.75ML PEN 0.75ML (Status = Active/Suspended) INJECT 2.4MG/ONE PEN UNDER THE SKIN WEEKLY FOR OBESITY Rx# [id number] Last Released: 11/01/24 Qty/Days Supply: Rx Expiration Date: 07/06/25 Refills Remainin Indication: OBESITY OUTPT SERTRALINE HCL 100MG TAB (Status = Discontinued) TAKE TWO TABLETS BY MOUTH EVERY DAY Rx# [id number] Last Released: 07/03/24 Qty/Days Supply: Rx Expiration Date: 01/19/25 Refills Remainin Indication: FOR MENTAL HEALTH OUTPT SERTRALINE HCL 100MG TAB (Status = On Hold) TAKE TWO TABLETS BY MOUTH EVERY DAY FOR MENTAL HEALTH Rx# [id number] Last Released: Qt Supply: Rx Expiration Date: 09/06/25 Refills Remainin Indication: FOR MENTAL HEALTH OUTPT SILDENAFIL CITRATE 100MG TAB (Status = ) TAKE ONE TABLET BY MOUTH NEEDED TAKE 30 TO 60 MINUTES PRIOR TO SEXUAL ACTIVITY; LIMITED TO 6 DOSES PER MONTH Rx# [id number] Last Released: 10/17/24 Qty/Days Supply: Rx Expiration Date: 11/07/24 Refills Remainin Indication: FOR ERECTILE DYSFUNCTION Remote SYRINGE 3ML/NDL 23G 1.5IN USE 1 SYRINGE INTRAMUSCULARLY WEEKLY FOR TESTOSTERONE INJECTION Last Filled: 02/03/25 (Active/Suspended at [facility]) Rx Expiration Date: 08/29/25 Days Supply: 84 Remote TESTOSTERONE CYPIONATE 200MG/ML INJ,1ML (IN OIL) INJECT 100MG/0.5ML DEEP INTRAMUSCULARLY WEEKLY FOR LOW TESTOSTERONE Last Filled: 12/18/24 (Active/Suspended at [facility]) Rx Expiration Date: 02/28/25 Days Supply: 30 OUTPT TIOTROPIUM 2.5MCG/ACTUAT 60D ORAL INHL (Status = Active/Suspended) INHALE TWO INHALATIONS BY MOUTH EVERY DAY MAX OF TWO INHALATIONS IN 24 HOURS. Rx# [id number] Last Released: 10/05/24 Qty/Days Supply: Rx Expiration Date: 08/10/25 Refills Remainin OUTPT TRAZODONE HCL 100MG TAB (Status = Discontinued) TAKE FOUR TABLETS BY MOUTH AT BEDTIME FOR SLEEP Rx# [id number] Last Released: 06/29/24 Qty/Days Supply: 360 Rx Expiration Date: 01/19/25 Refills Remainin Indication: FOR MENTAL HEALTH OUTPT TRAZODONE HCL 100MG TAB (Status = On Hold) TAKE FOUR TABLETS BY MOUTH AT BEDTIME FOR MENTAL HEALTH FOR SLEEP Rx# [id number] Last Released: Qty/Days Supply: 360 Rx Expiration Date: 09/06/25 Refills Remainin Indication: FOR MENTAL HEALTH OUTPT TRIAMCINOLONE ACETONIDE 0.1% CREAM (Status = Active) APPLY THIN FILM TOPICALLY TWICE A DAY Rx# [id number] Last Released: 11/06/24 Qty/Days Supply: 8030 Rx Expiration Date: 08/10/25 Refills Remainin Indication: FOR SKIN RASH SUPPLIES Potential risks, benefits, and alternative to medications prescribed were discussed with [place]/caregiver who was given an opportunity to ask questions, which were answered to the best of my ability and seemingly to their satisfaction. [place]/caregiver was/were instructed to contact provider (means provided) with any concerns or questions. A list of reconciled medications was mailed or sent via secure messaging to the [place]/caregiver. /zainab/ MANJULA BUTTS MENTAL HEALTH NURSE PRACTITIONER- Signed: 11/15/2024 09:03 MANJULA LYNCH [facility]
[2024-12-08 18:10] LABS: Basophils Absolute Auto 0.12 K/mm3 (0.00-0.10); Basophils Percent Auto 0.7 % (0.0-1.0); Eosinophils Absolute Auto 0.48 K/mm3 (0.02-0.50); Eosinophils Percent Auto 2.6 % (1.0-6.0); Hematocrit 44.4 % (40.0-54.0); Hemoglobin 14.7 g/dL (14.0-18.0); Immature Granulocyte Percent A 0.5 % (0.0-0.0); Lymphocytes Absolute Auto 2.03 K/mm3 (1.10-4.50); Lymphocytes Percent Auto 11.1 % (18.0-42.0); Mean Corpuscular HGB Conc 33.1 g/dL (32-36); Mean Corpuscular Hemoglobin 28.7 pg (27.0-31.0); Mean Corpuscular Volume 86.5 fL (78.0-102.0); Mean Platelet Volume 9.7 fl (8.7-11.0); Monocytes Absolute Auto 1.65 K/mm3 (0.10-0.90); Neutrophils Absolute Auto 13.96 K/mm3 (1.70-7.20); Neutrophils Percent Auto 76.1 % (50.0-70.0); Platelet Count Result 270 K/mm3 (150-420); Red Blood Count 5.13 M/mm3 (4.70-6.10); Red Cell Distribution Width 12.3 % (11.6-14.4); White Blood Count 18.3 K/mm3 (4.8-10.8)
[2024-12-08] MEDS: PIPERACILLIN/TAZ 4.5G/NS 100ML 4.5 GM/100 ML BAG IVPB (18:17)
[2024-12-08 18:28] LABS: Alanine Aminotransferase 22 U/L (6-50); Alkaline Phosphatase 65 U/L (38-126); Anion Gap 10 mmol/L (4-12); Aspartate Amino Transferase 30 U/L (17-59); Bilirubin,Total 0.4 mg/dL (0.2-1.3); Blood Urea Nitrogen 14 mg/dL (9-20); Calcium 8.9 mg/dL (8.4-10.2); Carbon Dioxide 22 mmol/L (22-30); Chloride 105 mmol/L (98-107); Estimated CRCL calculation 89 ml/min; Estimated Glomerular Filt Rate 60; Glucose 84 mg/dL (65-110); Lactic Acid Reflex 1.2 mmol/L (0.4-2.0); Osmolality Calculated 283 mOsm/kg (285-295); Potassium 4.1 mmol/L (3.4-5.0); Sodium 137 mmol/L (137-145)
--- OUTSIDE RECORDS SUMMARY | 2024-12-08 18:41 | XMS_ITS | Clinical Summary ---
Author Organization [facility] Address [address] [place] [address] Care Team Providers Care Financial Accounting Analyst Name Role Phone Unavailable Primary Care Provider [...]
--- NOTE | 2024-12-10 13:14 | PC.NURSE ---
blood culture preliminary, no growth
--- NOTE | 2024-12-15 13:44 | PC.NURSE ---
blood culture final, no growth
== END 2024-12-08 19:32 | disposition home or self-care (01) ==
PROVIDERS: Emergency Provider Internal Medicine Critical Care Medicine
DX: S61.451A Open bite of right hand, initial encounter (principal); L03.113 Cellulitis of right upper limb; W55.01XA Bitten by cat, initial encounter
CPT/HCPCS: 36415; 80053; 83605; 85025; 87040; 96365; 99284; J2543

== ENCOUNTER 2024-12-18 16:13 | Observation (INO) | payer OTHER, SELFPAY ==
--- NOTE | ~2024-12-18 | CT_ITS ---
Procedure: CT hand RT w con Ordering provider: Nhung Villa PA-C History: . cat bite, abscess R hand 3rd mcp region . Comparison: None. Technique: Thin slice axial CT of the No IV contrast was given. Sagittal and coronal reformatted imag es were also obtained and reviewed. Radiation reduction technique utilized.The dose-length product wa s 647.24 mGy-cm. 75 mL Omnipaque 350 was given IV. Findings: BONES: Cystic changes in the lunate bone are noted. Minimal cystic changes seen triquetral bone. No e vidence of osteomyelitis. JOINT SPACES: Normal. SOFT TISSUES: Hypodensity is seen on the dorsum of the hand with surrounding fat stranding which nay ures 8.3 x 4.8 mm suggestive of an abscess which is seen near to the base of the fourth metacarpal rosa ne. Surrounding inflammatory changes are noted. Another hypodensity is seen opposite the distal third metacarpal carpal bone distally which measures 1.4 x 1 cm with surrounding fat stranding. IMPRESSION: Cystic changes in the lunate and triquetral bones. This may be degenerative. Clinical correlation adv ised. Abscesses seen in the dorsum of the hand opposite the base of the fourth metacarpal bone and distally opposite the third metacarpal bone. Surrounding fat stranding is seen. Reviewed, dictated and finalized at location A. IMPRESSION: Cystic changes in the lunate and triquetral bones. This may be degenerative. Cl inical correlation advised. Abscesses seen in the dorsum of the hand opposite the base of the fourth metaca rpal bone and distally opposite the third metacarpal bone. Surrounding fat stra nding is seen.
[2024-12-18 16:15] VITALS: BP 170/107; PULSE 85; RESP 12; TEMP 36.8; O2SAT 100
[2024-12-18 16:47] VITALS: BP 140/88; PULSE 81; RESP 18; O2SAT 98
--- OUTSIDE RECORDS SUMMARY | 2024-12-18 16:47 | XMS_ITS | Clinical Summary ---
Author Organization [facility] Address [address] [place] [address] Care Team Providers Care Trencher Driver Name Role Phone Unavailable Primary Care Provider [...]
--- NOTE | 2024-12-18 16:51 | ED_ITS ---
HPI - Animal Bite General Chief Complaint: Animal Bite Stated Complaint: cat bite Time Seen by Provider: 12/18/24 16:21 Source: patient Mode of arrival: ambulatory Limitations: no limitations History of Present Illness HPI narrative: Patient is a 34-year-old male who presents the ED with report of a cat bite to his right hand. Patient reports he was bit by a family cat 13 days ago on his R hand, R 3rd mcp region. States he was seen at an outside ED and Rx'd augmentin. Completed a 7 day course of this last . He has since had persistent swelling, redness, pain to R dorsal hand/3rd mcp region, and is now draining purulent material from the hand. Denies fevers, chills, N/V. Denies hx of DM. Cat is UTD on its vaccines. Tetanus UTD as of one year ago. Related Data Allergies Allergy/AdvReac Type Severity Reaction Status Date / Time No Known Allergies Allergy Verified 12/08/24 18:16 Review of Systems 2 Review of Systems: All systems reviewed & are unremarkable except as noted in HPI. All systems reviewed & are unremarkable except as noted in HPI and below PMFSH Past Medical History Medical History Anxiety and depression Exam 2 Narrative: GENERAL: Well appearing, well-nourished, non-toxic, in no acute distress. HEAD: Normocephalic, atraumatic. RESPIRATORY: Airway patent, respirations nonlabored. Clear to auscultation bilaterally, no rales, rhonchi, wheezing. CARDIOVASCULAR: Regular rate and rhythm without murmurs, rubs, or gallops. Radial pulses strong and easily palpable. MUSCULOSKELETAL: Moves all extremities. R dorsal hand with diffuse swelling dorsally and into fingers. Moderate erythema, particularly over 2nd-4th mcp/metacarpal regions, most localized to his 3rd mcp region. Flaking of skin in this region. 2 puncture wounds over dorsal hand surrounding 3rd mcp region with active purulent drainage. Full flexion ROM of fingers, though somewhat decreased extension of 3rd digit. No pain with passive extension. Full flexion of the 3rd digit will express further purulent drainage. No streaking lymphangitis. Sensation intact throughout hand. SKIN: Warm, dry, normal color. NEURO: A&O X3. Speech clear. PSYCHIATRIC: Appropriate mood and affect. Normal interaction. Course Vital Signs Vital signs: Vital Signs Temperature 98.2 F 12/18/24 16:15 Pulse Rate 85 12/18/24 16:15 Respiratory Rate 12 12/18/24 16:15 Blood Pressure 170/107 H 12/18/24 16:15 Pulse Oximetry 100 12/18/24 16:15 Oxygen Delivery Room Air 12/18/24 16:15 Temperature 98.2 F 12/18/24 16:15 Pulse Rate 80 12/18/24 17:36 Respiratory Rate 16 12/18/24 17:36 Blood Pressure 142/101 H 12/18/24 17:36 Pulse Oximetry 98 12/18/24 17:36 Oxygen Delivery Room Air 12/18/24 16:15 Procedures Abscess I/D hand: Date of Incision: 12/18/24 Time of Incision: 19:00 Side (if applicable): right Sedation/analgesia: none Local Anesthetic: lidocaine 1% Amount of anesthesia used (mL): 4 Technique: incised with #11 blade and probed loculations Amount of fluid expressed (mL): 3 Irrigation: Yes Packing used?: none I&D Results: Pus and Blood Complications: other (none) MDM - Animal Bite MDM Narrative Medical decision making narrative: Patient presented to ED with cat bite infection to right dorsal hand. Almost 2 weeks out from initial injury. Has completed course of Augmentin. Tetanus is up-to-date. Cat UTD on vaccinations. Vital signs are stable upon arrival. Patient is afebrile here. Exam concerning for deep space infection of right hand. Draining purulent material from around 3rd MCP region. Wound cx obtained. CBC with white blood cell count of 13.6. Lactic acid within normal range. CRP mildly elevated. CT scan of hand obtained and showing abscesses of dorsal hand, measuring up to 8 x almost 5 mm. Blood cultures obtained. Patient started on Unasyn in the ED. Will be admitted for further eval. Discussed case with Dr. Joel, plastic/hand surgery, recommended vanc and Zosyn for more broad coverage given that he did not respond well with Augmentin initially. Recommended to try to I&D to open up draining region further. Was performed in the ED. Patient tolerated procedure well. Will consult and see patient tomorrow. Also recommended Betadine/peroxide/tingling soak, warm compresses, elevation of hand. Discussed case with Yue Beck MARKETING [employer]BASSADOR hospitalist, accepted patient for admission. Patient and family in agreement with plan and need for admission. Medical Records Attestation: I reviewed the patient's medical records. Lab Data Attestation: I reviewed the patient's lab results. 12/18/24 16:44 12/18/24 16:44 Labs: Lab Results 12/18/24 Range/Units 16:44 WBC 13.6 H (4.5-10.0) K/mm3 RBC 5.59 (4.6-6.20) M/mm3 Hgb 15.7 (14.0-18.0) g/dL Hct 47.0 (42.0-52.0) % MCV 84.1 (80-100) fl MCH 28.1 (26-34) pg MCHC 33.4 (32-36) g/dl RDW 12.6 (11.5-14.5) % Plt Count 373 (150-375) k/mm3 MPV 9.3 (7.4-10.4) fl Immature Gran % (Auto) 1.2 H (0-0.5) % Neut % (Auto) 70.4 (45.5-73.1) % Lymph % (Auto) 13.9 L (18.3-44.2) % [place] % (Auto) 11.0 H (2.6-8.5) % Eos % (Auto) 2.9 (0-4.4) % Baso % (Auto) 0.6 (0.2-1.2) % Lymph # (Auto) 1.90 (0.9-3.2) K/mm3 [place] # (Auto) 1.5 H (0.1-0.6) K/mm3 Eos # (Auto) 0.4 H (0-0.3) K/mm3 Baso # (Auto) 0.1 (0.0-0.1) K/mm3 Abs Immat Gran (auto) 0.16 H (0.00-0.031) K/mm3 Absolute Neuts (auto) 9.6 H (1.3-6.7) K/mm3 Absolute Nucleated RBC 0.000 (0.0-0.012) K/mm3 Nucleated RBC % 0.0 (0.0-0.2) % ESR 8 (0-20) mm/hr Sodium 136 L (137-145) mmol/L Potassium 3.7 (3.4-5.0) mmol/L Chloride 102 (98-107) mmol/L Carbon Dioxide 23 (22-30) mmol/L Anion Gap 11 (4-12) mmol/L BUN 13 (9-20) mg/dL Creatinine 1.00 (0.7-1.3) mg/dL Estim Creat Clear Calc 118 ml/min Estimated GFR > 60 (59 - ) Glucose 95 (65-110) mg/dL Lactic Acid 1.3 (0.7-2.0) mmol/L Calcium 9.0 (8.4-10.2) mg/dL Total Bilirubin 0.4 (0.2-1.3) mg/dL AST 37 (17-59) U/L ALT 28 (6-50) U/L Alkaline Phosphatase 73 (38-126) U/L C-Reactive Protein 1.5 H (<1.0) mg/dL Total Protein 7.6 (6.3-8.2) g/dL Albumin 4.1 (3.5-5.1) g/dL Imaging Data Attestation: I personally reviewed and interpreted this imaging study as follows: Radiologist's impression: ITS Impressions Hand CT 12/18/24 17:42 IMPRESSION: Cystic changes in the lunate and triquetral bones. This may be degenerative. Clinical correlation advised. Abscesses seen in the dorsum of the hand opposite the base of the fourth metacarpal bone and distally opposite the third metacarpal bone. Surrounding fat stranding is seen. Discharge Plan Discharge Clinical Impression: Cellulitis and abscess of hand, Cat bite of right hand Patient Disposition: Still a Patient Condition: Stable Patient Language: Telugu Follow-up/Referrals: [facility] [Primary Care Provider] -
[2024-12-18 17:02] LABS: Basophils Absolute Auto 0.1 K/mm3 (0.0-0.1); Basophils Percent Auto 0.6 % (0.2-1.2); Eosinophils Absolute Auto 0.4 K/mm3 (0-0.3); Eosinophils Percent Auto 2.9 % (0-4.4); Hemoglobin 15.7 g/dL (14.0-18.0); Immature Granulocyte Absolute 0.16 K/mm3 (0.00-0.031); Immature Granulocyte Percent A 1.2 % (0-0.5); Lymphocytes Percent Auto 13.9 % (18.3-44.2); Mean Corpuscular HGB Conc 33.4 g/dl (32-36); Mean Corpuscular Hemoglobin 28.1 pg (26-34); Mean Corpuscular Volume 84.1 fl (80-100); Mean Platelet Volume 9.3 fl (7.4-10.4); Monocytes Absolute Auto 1.5 K/mm3 (0.1-0.6); Neutrophils Absolute Auto 9.6 K/mm3 (1.3-6.7); Neutrophils Percent Auto 70.4 % (45.5-73.1); Platelet Count Result 373 k/mm3 (150-375); Red Blood Count 5.59 M/mm3 (4.6-6.20); Red Cell Distribution Width 12.6 % (11.5-14.5); White Blood Count 13.6 K/mm3 (4.5-10.0)
[2024-12-18 17:11] LABS: Lactic Acid Reflex 1.3 mmol/L (0.7-2.0)
[2024-12-18 17:14] LABS: Alanine Aminotransferase 28 U/L (6-50); Albumin Level 4.1 g/dL (3.5-5.1); Alkaline Phosphatase 73 U/L (38-126); Anion Gap 11 mmol/L (4-12); Aspartate Amino Transferase 37 U/L (17-59); Bilirubin,Total 0.4 mg/dL (0.2-1.3); Blood Urea Nitrogen 13 mg/dL (9-20); CRP 1.5 mg/dL (<1.0); Carbon Dioxide 23 mmol/L (22-30); Chloride 102 mmol/L (98-107); Estimated CRCL calculation 118 ml/min; Estimated Glomerular Filt Rate > 60; Glucose 95 mg/dL (65-110); Potassium 3.7 mmol/L (3.4-5.0); Sodium 136 mmol/L (137-145); Total Protein 7.6 g/dL (6.3-8.2)
[2024-12-18 17:24] LABS: Erythrocyte Sedimentation Rate 8 mm/hr (0-20)
--- OUTSIDE RECORDS SUMMARY | 2024-12-18 17:28 | XMS_ITS | Encounter Summary ---
Author Organization [facility] Address [facility] [place] [address] Care Team Providers Care Operating Room Coordinator Name Role Phone Peterson Amato MD Primary Care Provider [phone] Non-Staff, Provider Primary Care Provider Jany rose Encounter Details Date Type Department Care Team (Late st Contact Info) Description 12/09/2018 Abstract [facility] CONVERSION [address] [place] [address] , Generic Conversion, Social History Tobacco Use Types Packs/Day Years Used Date Smoking Tobacco: Never Assessed Sex and Gender Information Value Date Recorded Sex Assigned at Male 12/07/2024 8:29 AM CDT Legal Sex Male 8:16 PM CDT Gender Identity Male 12/07/2024 8:29 AM CDT Sexual Orientation Not on file documented as of this encounter Plan of Treatment Not on file documented as of this encounter Visit Diagnoses Not on filedocumented in this encounter Care Teams Operating Room Coordinator Relationship Specialty Start Date End Date Peterson Amato MD [address] [place] [id number] PCP - General FAMILY PRACTICE 01/28/20 12/06/24 Non-Staff, Provider PCP - General UNKNOWN PHYSICIAN SPECIALTY 12/07/24 documented as of this encounter
--- OUTSIDE RECORDS SUMMARY | 2024-12-18 17:28 | XMS_ITS | Clinical Summary ---
Author Organization [facility] Address [address] [facility] [place] [address] Care Team Providers Care Retail Project Merchandiser Name Role Phone Unavailable Primary Care Provider [...]
--- OUTSIDE RECORDS SUMMARY | 2024-12-18 17:28 | XMS_ITS | Clinical Summary ---
Author Organization [facility] Address [address] [place] [address] Care Team Providers Care Clockmaker Name Role Phone Non-Staff, Provider Primary Care Provider Unavai lable Allergies Active Allergy Reactions Criticality Noted Date Comments Orlistat Diarrhea Low 11/03/2021 Medications acetaminophen (TYLENOL) 500 MG tablet Take 2 tablets (1,000 mg total) by mouth. 02/23/20 24 Active sertraline (ZOLOFT) 100 MG tablet Take 1 tablet (100 mg total) by mouth daily. 200 mg daily Active cetirizine (ZYRTEC) 10 MG tablet Take 1 tablet (10 mg total) by mouth. 01/17/20 24 Active Cholecalcifero l 100 MCG (4000 UT) Tab Take 10 mcg by mouth. 01/17/20 24 Active prazosin (MINIPRESS) 5 MG capsule Take 3 capsules (15 mg total) by mouth. 01/19/20 24 Active semaglutide-we ight management (WEGOVY) 2.4 mg/dose injection (PEN) SEMAGLUTIDE(WT LOSS) 2.4MG/0.75ML INJ,SOLN,PEN,0. 75ML Active INJECT 2.4MG/ONE PEN UNDER THE SKIN WEEKLY FOR OBESITY OBESITY Jan 17, 2024 12 Apr 10, 2024 [id number] Apr 01, 2024 KATARINA CORRIGAN [facility] 01/17/20 24 Active albuterol sulfate HFA 108 (90 Base) MCG/ACT inhaler Inhale 2 puffs into the lungs every 6 (six) hours as needed. 01/17/20 24 Active tiotropium (SPIRIVA RESPIMAT) 2.5 MCG/ACT inhaler (SPIRIVA RESPIMAT) Inhale 2 puffs into the lungs daily. 04/05/20 Active traZODone (DESYREL) 100 MG tablet Take 4 tablets (400 mg total) by mouth nightly at bedtime. 01/19/20 Active fluticasone propionate (FLONASE) 50 MCG/ACT nasal spray 1 spray by Nasal route daily. 01/17/20 Active diclofenac sodium (VOLTAREN) 1 % gel APPLY 2 GRAMS TOPICALLY FOUR TIMES A DAY NEEDED NEEDED FOR PAIN AND INFLAMMATION. DON'T EXCEED 16 GRAMS DAILY TO ANY AFFECTED LEG AREA. DON'T EXCEED 8 GRAMS DAILY TO ANY AFFECTED ARM AREA. DON'T EXCEED A TOTAL DOSE OF 32 GRAMS DAILY OVER ALL AREAS. *USE DOSING CARD TO MEASURE DOSE.* 01/17/20 Active cyclobenzaprin e (FLEXERIL) 10 MG tablet Take 1 tablet (10 mg total) by mouth. 01/17/20 Active celecoxib (CELEBREX) 200 MG capsule Take 1 capsule (200 mg total) by mouth. 01/17/20 Active Testosterone Cypionate 200 MG/ML Solution Inject 1 Application into the muscle every 14 (fourteen) days. 04/17/20 Active sildenafil (VIAGRA) 100 MG tablet Take 1 tablet (100 mg total) by mouth. 01/17/20 025 Discontinued triamcinolone (KENALOG) 0.1 % cream Apply topically 2 (two) times daily. 04/13/20 24 025 Discontinued fluticasone-sa lmeterol (ADVAIR DISKUS) 250-50 MCG/ACT inhaler INHALE 1 PUFF BY MOUTH TWICE A DAY FOR SHORTNESS OF BREATH FROM ASTHMA RINSE MOUTH AFTER USE. 04/19/20 025 Discontinued amoxicillin-cl avulanate (AUGMENTIN) 875-125 MG tablet Take 1 tablet (875 mg total) by mouth 2 (two) times daily for 7 days. 14 tablet 12/08/19 025 Active Problems Problem Noted Date Diagnosed Date Traumatic closed nondisplace d fracture of distal fibula with routine healing, left 03/16/2024 Encounters Date Type Department Care Team Description 12/07/2024 8:22 AM CDT - 12/07/2024 9:00 AM T Emergency [facility] [address] [place] [address] Jack Cage, DO Animal Bite Discharge Disposition: Home or Self Care (Routine Discharge) 12/07/2024 Travel from Last 3 Months Family History Medical History Relation Comments No Known Problems Father No Known Problems Mother Relation Status Comments Father Mother Alive Social History Tobacco Use Types Packs/Day Years Used Date Smoking Tobacco: Never Smokeless Tobacco: Never Tobacco Cessation:Counseling Given: Not Answered Alcohol Use Standard Drinks/Week Comments Yes 0 (1 standard drink = 0.6 oz pur e alcohol) rare Sex and Gender Information Value Date Recorded Sex Assigned at Male 12/07/2024 8:29 AM CDT Legal Sex Male 8:16 PM CDT Gender Identity Male 12/07/2024 8:29 AM CDT Sexual Orientation Not on file Last Filed Vital Signs Vital Sign Reading Time Taken Comments Blood Pressure 149/84 12/07/2024 8:26 AM CDT Pulse 102 12/07/2024 8:26 AM CDT Temperature 36.7 C (98 F) 12/07/2024 8:26 AM CDT Respiratory Rate 15 12/07/2024 8:26 AM CDT Oxygen Saturation 97% 12/07/2024 8:26 AM CDT Inhaled Oxygen Concentration - - Weight 111.1 kg (245 lb) 12/07/2024 8:26 AM CDT Height 185.4 cm (6' 1) 12/07/2024 8:26 AM CDT Body Mass Index 32.32 12/07/2024 8:26 AM CDT Plan of Treatment Health Maintenance Due Date Last Done Comments Annual Physical 01/18/1991 Hepatitis C 01/18/2006 Pneumococcal Vaccine: Pediatrics (0 to 5 Years) and At-Risk Patients (6 to 49 Years) (1 of 2 - PCV) 01/18/2007 COVID-19 Vaccine ( - season) 2024 DTaP, Tdap and Td Vaccines (5 - Td or Tdap) 08/23/2033 08/23/2023, 01/13/2009, 09/11/2007, Additional history exists Meningococcal Vaccine Aged Out 09/11/2007 No alexandrea raymond eligible based on patient's age to complete this topic Hepatitis B Vaccines Completed 01/13/2009, 04/08/2008, 10/25/2007, Additional history exists HPV Vaccines Aged Out No longer eligi ble based on patient's age to complete this topic Meningococcal B Vaccine Aged Out No l onger eligible based on patient's age to complete this topic RSV Immunizations Under 20 Months Aged Out No longer eligible based on patient's age to complete this topic Insurance [facility] Care Teams Clockmaker Relationship Specialty Start Date End Date Non-Staff, Provider PCP - General UNKNOWN PHYSICIAN SPECIALTY 12/07/24
[2024-12-18 17:36] VITALS: BP 142/101; PULSE 80; RESP 16; O2SAT 98
[2024-12-18] MEDS: AMPICILLIN SULB 3 GM/NS 100 ML 3 GM/100 ML VIAL IVPB (17:39)
[2024-12-18] MEDS: PIPERACILLN/TAZ 3.375GM/NS50ML 3.375 GM/50 ML BAG IVPB ×2 (18:54→23:36)
[2024-12-18] MEDS: LIDOCAINE 1% LOCAL INJ 10 ML VIAL INFILTRATE (18:54)
[2024-12-18 19:00] VITALS: BP 138/96; PULSE 90; RESP 18; O2SAT 99
[2024-12-18] MEDS: HYDROGEN PEROXIDE 3% SOLN(*SP) 473 ML BOTTLE (19:28)
[2024-12-18] MEDS: VANCOMYCIN 1,250 MG/NS 250 ML 1,250 MG/250 ML BAG 166.67 MG IVPB ×2 (19:28→21:02)
[2024-12-18 21:03] VITALS: BP 148/87; PULSE 82; RESP 18; TEMP 37.3; O2SAT 98
[2024-12-18 21:38] VITALS: BMI 30.9
--- NOTE | 2024-12-18 21:40 | ADMGEN ---
This patient, Anton Real, was admitted to Medical Room 347-. Patient/family oriented to hospital policies and general routines including ID bracelet, bed and alarms, visiting hours, pain management, procedures, bathroom and other care routines, personal items, smoking policy, room service/diet, and visiting hours. Information on how to activate the Rapid Response Team has been discussed. Patient/Family are encouraged to report perceived risks to care and to ask questions if they do not understand what they are told or what they should do.
[2024-12-18 22:00] VITALS: BP 154/80; PULSE 88; RESP 18; TEMP 37; O2SAT 97
[2024-12-18] MEDS: MORPHINE SULFATE (*CRX) 4 MG/ML INJ IV PUSH (22:10)
[2024-12-18] MEDS: CYCLOBENZAPRINE HCL 10 MG TABLET PO (23:33)
[2024-12-18] MEDS: traZODone HCL 50 MG TABLET 100 MG PO (23:33)
[2024-12-18] MEDS: PRAZOSIN HCL 5 MG CAPSULE 15 MG PO (23:33)
[2024-12-19] MEDS: PIPERACILLN/TAZ 3.375GM/NS50ML 3.375 GM/50 ML BAG IVPB ×4 (05:32→23:37)
[2024-12-19 05:33] LABS: Basophils Absolute Auto 0.1 K/mm3 (0.0-0.1); Basophils Percent Auto 1.1 % (0.2-1.2); Eosinophils Absolute Auto 0.5 K/mm3 (0-0.3); Eosinophils Percent Auto 4.1 % (0-4.4); Hematocrit 46.6 % (42.0-52.0); Hemoglobin 15.5 g/dL (14.0-18.0); Immature Granulocyte Absolute 0.15 K/mm3 (0.00-0.031); Immature Granulocyte Percent A 1.4 % (0-0.5); Lymphocytes Absolute Auto 2.23 K/mm3 (0.9-3.2); Lymphocytes Percent Auto 20.5 % (18.3-44.2); Mean Corpuscular HGB Conc 33.3 g/dl (32-36); Mean Corpuscular Hemoglobin 28.3 pg (26-34); Mean Corpuscular Volume 85.2 fl (80-100); Mean Platelet Volume 9.1 fl (7.4-10.4); Monocytes Absolute Auto 1.4 K/mm3 (0.1-0.6); Monocytes Percent Auto 12.4 % (2.6-8.5); Neutrophils Absolute Auto 6.6 K/mm3 (1.3-6.7); Neutrophils Percent Auto 60.5 % (45.5-73.1); Platelet Count Result 329 k/mm3 (150-375); Red Blood Count 5.47 M/mm3 (4.6-6.20); Red Cell Distribution Width 12.6 % (11.5-14.5); White Blood Count 10.9 K/mm3 (4.5-10.0)
[2024-12-19 05:50] LABS: Alanine Aminotransferase 24 U/L (6-50); Albumin Level 3.8 g/dL (3.5-5.1); Alkaline Phosphatase 70 U/L (38-126); Anion Gap 8 mmol/L (4-12); Aspartate Amino Transferase 32 U/L (17-59); Bilirubin,Total 0.4 mg/dL (0.2-1.3); Blood Urea Nitrogen 11 mg/dL (9-20); Calcium 8.8 mg/dL (8.4-10.2); Carbon Dioxide 24 mmol/L (22-30); Chloride 104 mmol/L (98-107); Estimated CRCL calculation 99 ml/min; Estimated Glomerular Filt Rate > 60; Glucose 96 mg/dL (65-110); Magnesium 1.9 mg/dL (1.6-2.3); Potassium 3.9 mmol/L (3.4-5.0); Sodium 136 mmol/L (137-145); Total Protein 7.1 g/dL (6.3-8.2)
[2024-12-19 06:00] VITALS: BP 122/67; PULSE 81; RESP 18; TEMP 36.4; O2SAT 97
--- NOTE | 2024-12-19 08:04 | P.HP_ITS ---
H&P: HPI History of Present Illness Date/Time: 12/19/24 08:04 Chief Complaint: Cat bite Narrative: 34-year-old male with no significant past medical history reported to ED due to cat bite on his right hand. As per ED documentation patient was bit by a family CT 13 days ago on his right hand (3rd metacarpal region). As an outpatient patient received Augmentin and completed the 7 day course on loss the stay. Unfortunately patient has still persistent swelling, redness and pain on his right hand. Denies any fever, chills, nausea or vomiting. As per patient cat is up-to-date on vaccination. Patient last tetanus vaccination a last year. Patient is started on Zosyn and vancomycin. As per ED, Discussed case with Dr. Joel, plastic/hand surgery, recommended vanc and Zosyn for more broad coverage given that he did not respond well with Augmentin initially. Recommended to try to I&D to open up draining region further. Was performed in the ED. Patient tolerated procedure well. Will consult and see patient tomorrow. Also recommended Betadine/peroxide/tingling soak, warm compresses, elevation of hand. Review of Systems Review of Systems: All systems reviewed & are unremarkable except as noted in HPI. All systems reviewed & are unremarkable except as noted in HPI and below PMFSH Past Medical History Medical History Anxiety and depression Social History Social History Smoking status: Never smoker Alcohol intake: never Substance use: never Do You Feel Safe in your Home?: Yes Lack of Transportation: No Lack of Food: Never True Current Housing: I Have Housing Concerned About Future Housing: No Difficulty Paying Gas/Electric Bills: No Difficulty Paying for Meds: No Currently Unemployed: No Education: Bachelor's Degree Difficulty w/ Childcare or Family Care: No Spiritual care concerns: No Meds Home Medications and Allergies Home Medications ?Medication ?Instructions ?Recorded ?Confirmed ?Type celecoxib 100 mg capsule (Celebrex) 200 mg PO BID PRN pain 12/18/24 12/18/24 History cetirizine 10 mg capsule (All Day 10 mg PO DAILY 12/18/24 12/18/24 History Allergy (cetirizine)) cholecalciferol (vitamin D3) 10 10 mcg PO DAILY 12/18/24 12/18/24 History mcg (400 unit) capsule cyclobenzaprine 10 mg tablet 10 mg PO QHS 12/18/24 12/18/24 History prazosin 5 mg capsule 15 mg PO HS 12/18/24 12/18/24 History sertraline 100 mg tablet (Zoloft) 200 mg PO DAILY 12/18/24 12/18/24 History trazodone 100 mg tablet 100 mg PO HS 12/18/24 12/18/24 History Allergies Allergy/AdvReac Type Severity Reaction Status Date / Time ibuprofen AdvReac Severe kidney Verified 12/18/24 22:37 issues Vital Signs Vital Signs - 24 hr 12/18/24 16:15 12/18/24 16:47 12/18/24 17:36 Temperature 98.2 F Pulse Rate 85 81 80 Respiratory Rate 12 18 16 Blood Pressure 170/107 H 140/88 142/101 H Pulse Oximetry 100 98 98 Oxygen Delivery Room Air 12/18/24 19:00 12/18/24 21:03 12/18/24 21:38 Temperature 99.2 F Pulse Rate 90 82 Respiratory Rate 18 18 Blood Pressure 138/96 H 148/87 H Pulse Oximetry 99 98 Oxygen Delivery Room Air 12/18/24 22:00 12/19/24 06:00 Temperature 98.6 F 97.6 F Pulse Rate 88 81 Respiratory Rate 18 18 Blood Pressure 154/80 H 122/67 Pulse Oximetry 97 97 Oxygen Delivery Exam Narrative: GENERAL: Well appearing, well-nourished, non-toxic, in no acute distress. HEAD: Normocephalic, atraumatic. RESPIRATORY: Airway patent, respirations nonlabored. Clear to auscultation bilaterally, no rales, rhonchi, wheezing. CARDIOVASCULAR: Regular rate and rhythm without murmurs, rubs, or gallops. Radial pulses strong and easily palpable. MUSCULOSKELETAL: Moves all extremities. R dorsal hand with diffuse swelling dorsally and into fingers. Moderate erythema, particularly over 2nd-4th mcp/metacarpal regions, most localized to his 3rd mcp region. Flaking of skin in this region. 2 puncture wounds over dorsal hand surrounding 3rd mcp region with active purulent drainage. Full flexion ROM of fingers, though somewhat decreased extension of 3rd digit. No pain with passive extension. Full flexion of the 3rd digit will express further purulent drainage. No streaking lymphangitis. Sensation intact throughout hand. SKIN: Warm, dry, normal color. NEURO: A&O X3. Speech clear. PSYCHIATRIC: Appropriate mood and affect. Normal interaction. H&P: Results Labs Labs: Short CBC 12/18/24 12/19/24 Range/Units 16:44 05:22 WBC 13.6 H 10.9 H (4.5-10.0) K/mm3 Hgb 15.7 15.5 (14.0-18.0) g/dL Hct 47.0 46.6 (42.0-52.0) % Plt Count 373 329 (150-375) k/mm3 [facility] 12/18/24 12/19/24 16:44 05:22 Sodium 136 L 136 L Potassium 3.7 3.9 Chloride 102 104 Carbon Dioxide 23 24 BUN 13 11 Creatinine 1.00 1.18 Glucose 95 96 Calcium 9.0 8.8 Liver Function 12/18/24 12/19/24 Range/Units 16:44 05:22 Total Bilirubin 0.4 0.4 (0.2-1.3) mg/dL AST 37 32 (17-59) U/L ALT 28 24 (6-50) U/L Alkaline Phosphatase 73 70 (38-126) U/L Albumin 4.1 3.8 (3.5-5.1) g/dL Assessment and Plan Assessment and plan (1) Cellulitis and abscess of hand: Code(s): L03.119 - Cellulitis of unspecified part of limb; L02.519 - Cutaneous abscess of unspecified hand Status: Acute Assessment and Plan: Failed oral antibiotic course as an outpatient Currently on vancomycin and Zosyn Incision and drainage performed in ED Plastics/hand surgeon on board Monitor vitals Monitor blood and wound culture Up-to-date on tetanus vaccination Hand CT:Cystic changes in the lunate and triquetral bones. This may be degenerative. Clinical correlation advised. Abscesses seen in the dorsum of the hand opposite the base of the fourth metacarpal bone and distally opposite the third metacarpal bone. Surrounding fat stranding is seen. (2) Cat bite of right hand: Qualifiers: Encounter type: initial encounter Qualified Code(s): S61.451A - Open bite of right hand, initial encounter; W55.01XA - Bitten by cat, initial encounter Code(s): S61.451A - Open bite of right hand, initial encounter; W55.01XA - Bitten by cat, initial encounter Status: Acute Assessment and Plan: Plastics recommendation: 1) warm soaks of right hand in saline with either betadine or peroxide. 2) dress open wound with xeroform, 4x4 and cullen wrap 3) BID warm moist compresses to area BID 4) elevate extremity 5) continue IV abx per primary and change to po as indicated or if cultures return 6) reconsult plastics if needed but will be unavailable after tomorrow 7)f/u with plastics after discharge. Hospitalist MIPS Advance Care Plan I have confirmed that the patient's Advanced Care Plan is present, code status is documented, or surrogate decision maker is listed in patient medical record.: Yes Medication Reconciliation I have utilized all available resources to obtain, update and review the patients current medications (includes all prescriptions, OTC, herbals, cannabis, and nutritional supplements).: Yes
[2024-12-19] MEDS: SERTRALINE HCL 50 MG TABLET 200 MG PO (08:26)
[2024-12-19] MEDS: CHOLECALCIFEROL (VITAMIN D3) 10 MCG (400 UNITS) TABLET PO (08:26)
[2024-12-19] MEDS: LORATADINE 10 MG TABLET PO (08:27)
[2024-12-19] MEDS: VANCOMYCIN 1,500 MG/NS 500 ML 1,500 MG/500 ML BAG 250 MG IVPB ×2 (08:27→20:17)
--- NOTE | 2024-12-19 13:02 | WPDCN ---
Assessment and Plan Assessment and plan (1) Cat bite of right hand: Qualifiers: Encounter type: initial encounter Qualified Code(s): S61.451A - Open bite of right hand, initial encounter; W55.01XA - Bitten by cat, initial encounter Code(s): S61.451A - Open bite of right hand, initial encounter; W55.01XA - Bitten by cat, initial encounter Status: Acute (2) Cellulitis and abscess of hand: Code(s): L03.119 - Cellulitis of unspecified part of limb; L02.519 - Cutaneous abscess of unspecified hand Status: Acute Plan 34yo RHD male with right hand cat bite cellulitis and small self draiing abscess improving on IV abx ct images reviwed and agree with report labs noted with WBC decreaing to 10 discussed impression and Dx and recommendation that since he seems to be clinically improving with conservative mgmt would continue this course and no surgical intervention such as further I&D necessarily indicated at this time. Plan: 1) warm soaks of right hand in saline with either betadine or peroxide. 2) dress open wound with xeroform, 4x4 and cullen wrap 3) BID warm moist compresses to area BID 4) elevate extremity 5) continue IV abx per primary and change to po as indicated or if cultures return 6) reconsult plastics if needed but will be unavailable after tomorrow 7)f/u with plastics after discharge. HPI Data of Consult Date/Time: 12/19/24 13:02 Requesting Physician: Hai Mcmahan MD Primary Care Provider: [facility] Consult Narrative Narrative: Anton Real is a 34 year old male admitted through ED for right hat cat bite celluilitis and abscess. was bitten by mother's cat ~4-5 days ago initially treated with augmenti but swelling and pain persisted so he presented to [place] ED yesterday. CT noting dorsal hand abscess/fluid collection with elevated white count of 13.6 Admitted and started on broad spectrum antibiotics. plastics consulted for further eval and mgmt. patient seen and examined this afternoon at bedside reporting some innterval improvement though still notes swelling and inability to fully extend right middle finger. notes posble one incience of warm compress but no soaking PMFSH Past Medical History Medical History Anxiety and depression Social History Social History Smoking status: Never smoker Alcohol intake: never Substance use: never Do You Feel Safe in your Home?: Yes Lack of Transportation: No Lack of Food: Never True Current Housing: I Have Housing Concerned About Future Housing: No Difficulty Paying Gas/Electric Bills: No Difficulty Paying for Meds: No Currently Unemployed: No Education: Bachelor's Degree Difficulty w/ Childcare or Family Care: No Spiritual care concerns: No Meds Home Medications and Allergies Home Medications ?Medication ?Instructions ?Recorded ?Confirmed ?Type celecoxib 100 mg capsule (Celebrex) 200 mg PO BID PRN pain 12/18/24 12/18/24 History cetirizine 10 mg capsule (All Day 10 mg PO DAILY 12/18/24 12/18/24 History Allergy (cetirizine)) cholecalciferol (vitamin D3) 10 10 mcg PO DAILY 12/18/24 12/18/24 History mcg (400 unit) capsule cyclobenzaprine 10 mg tablet 10 mg PO QHS 12/18/24 12/18/24 History prazosin 5 mg capsule 15 mg PO HS 12/18/24 12/18/24 History sertraline 100 mg tablet (Zoloft) 200 mg PO DAILY 12/18/24 12/18/24 History trazodone 100 mg tablet 100 mg PO HS 12/18/24 12/18/24 History Allergies Allergy/AdvReac Type Severity Reaction Status Date / Time ibuprofen AdvReac Severe kidney Verified 12/18/24 22:37 issues Vital Signs Vital Signs - 24 hr 12/18/24 16:15 12/18/24 16:47 12/18/24 17:36 Temperature 36.8 C Pulse Rate 85 81 80 Respiratory Rate 12 18 16 Blood Pressure 170/107 H 140/88 142/101 H Pulse Oximetry 100 98 98 Oxygen Delivery Room Air 12/18/24 19:00 12/18/24 21:03 12/18/24 21:38 Temperature 37.3 C Pulse Rate 90 82 Respiratory Rate 18 18 Blood Pressure 138/96 H 148/87 H Pulse Oximetry 99 98 Oxygen Delivery Room Air 12/18/24 22:00 12/19/24 06:00 12/19/24 08:00 Temperature 37.0 C 36.4 C Pulse Rate 88 81 Respiratory Rate 18 18 Blood Pressure 154/80 H 122/67 Pulse Oximetry 97 97 Oxygen Delivery Room Air Exam Narrative: Gen: right dorsal hand edematous with mild fluctuance and small opening dorsal proximal proximal phalanx with small spot of puruelnce but no further fluid expressable. minimally tender. minimal hyperemia. no dressing in place ROM: full ROM 25 degre R MF extensor lag passively correcatble. fds/fdp intact but slightly limited from stiffness/edema. Vascular: Warm and well perfused Sensation: Intact to light touch Results Labs 12/19/24 05:22 12/19/24 05:22 Labs: Short CBC 12/18/24 12/19/24 Range/Units 16:44 05:22 WBC 13.6 H 10.9 H (4.5-10.0) K/mm3 Hgb 15.7 15.5 (14.0-18.0) g/dL Hct 47.0 46.6 (42.0-52.0) % Plt Count 373 329 (150-375) k/mm3 BMP 12/18/24 12/19/24 16:44 05:22 Sodium 136 L 136 L Potassium 3.7 3.9 Chloride 102 104 Carbon Dioxide 23 24 BUN 13 11 Creatinine 1.00 1.18 Glucose 95 96 Calcium 9.0 8.8 Liver Function 12/18/24 12/19/24 Range/Units 16:44 05:22 Total Bilirubin 0.4 0.4 (0.2-1.3) mg/dL AST 37 32 (17-59) U/L ALT 28 24 (6-50) U/L Alkaline Phosphatase 73 70 (38-126) U/L Albumin 4.1 3.8 (3.5-5.1) g/dL
[2024-12-19] MEDS: CYCLOBENZAPRINE HCL 10 MG TABLET PO (20:17)
[2024-12-19] MEDS: traZODone HCL 50 MG TABLET 100 MG PO (20:17)
[2024-12-19] MEDS: PRAZOSIN HCL 5 MG CAPSULE 15 MG PO (20:18)
[2024-12-19] MEDS: MORPHINE SULFATE (*CRX) 4 MG/ML INJ IV PUSH (21:48)
[2024-12-19 22:00] VITALS: BP 132/79; PULSE 84; RESP 16; TEMP 36.2; O2SAT 98
[2024-12-20] MEDS: PIPERACILLN/TAZ 3.375GM/NS50ML 3.375 GM/50 ML BAG IVPB ×2 (05:39→11:21)
[2024-12-20] MEDS: HYDROGEN PEROXIDE 3% TOPICAL SOLUTION 118 ML BOTTLE 20 ML IRRIGATION (06:15)
--- NOTE | 2024-12-20 06:31 | PC.NURSE ---
[facility] prepared to change patients dressing at 0600 and patient requested to wait until later in the morning when he woke up.
[2024-12-20 06:52] LABS: Basophils Absolute Auto 0.1 K/mm3 (0.0-0.1); Basophils Percent Auto 1.4 % (0.2-1.2); Eosinophils Absolute Auto 0.5 K/mm3 (0-0.3); Hematocrit 47.1 % (42.0-52.0); Hemoglobin 15.4 g/dL (14.0-18.0); Immature Granulocyte Absolute 0.11 K/mm3 (0.00-0.031); Immature Granulocyte Percent A 1.3 % (0-0.5); Lymphocytes Absolute Auto 1.91 K/mm3 (0.9-3.2); Lymphocytes Percent Auto 22.7 % (18.3-44.2); Mean Corpuscular HGB Conc 32.7 g/dl (32-36); Mean Corpuscular Hemoglobin 28.4 pg (26-34); Mean Corpuscular Volume 86.9 fl (80-100); Mean Platelet Volume 9.2 fl (7.4-10.4); Monocytes Percent Auto 11.3 % (2.6-8.5); Neutrophils Absolute Auto 4.8 K/mm3 (1.3-6.7); Neutrophils Percent Auto 57.3 % (45.5-73.1); Platelet Count Result 317 k/mm3 (150-375); Red Blood Count 5.42 M/mm3 (4.6-6.20); Red Cell Distribution Width 12.8 % (11.5-14.5); White Blood Count 8.4 K/mm3 (4.5-10.0)
[2024-12-20 07:02] LABS: Alanine Aminotransferase 21 U/L (6-50); Albumin Level 3.8 g/dL (3.5-5.1); Alkaline Phosphatase 65 U/L (38-126); Anion Gap 8 mmol/L (4-12); Aspartate Amino Transferase 31 U/L (17-59); Bilirubin,Total 0.4 mg/dL (0.2-1.3); Blood Urea Nitrogen 9 mg/dL (9-20); Calcium 8.6 mg/dL (8.4-10.2); Carbon Dioxide 23 mmol/L (22-30); Chloride 107 mmol/L (98-107); Estimated CRCL calculation 97 ml/min; Estimated Glomerular Filt Rate > 60; Glucose 91 mg/dL (65-110); Magnesium 1.9 mg/dL (1.6-2.3); Potassium 3.8 mmol/L (3.4-5.0); Sodium 138 mmol/L (137-145)
[2024-12-20 07:13] LABS: Vancomycin Trough 11.8 ug/mL (10.0-20.0)
[2024-12-20] MEDS: LORATADINE 10 MG TABLET PO (08:28)
[2024-12-20] MEDS: VANCOMYCIN 2,000 MG/NS 500 ML 2,000 MG/500 ML BAG 250 MG IVPB (08:28)
[2024-12-20] MEDS: SERTRALINE HCL 50 MG TABLET 200 MG PO (08:28)
[2024-12-20] MEDS: CHOLECALCIFEROL (VITAMIN D3) 10 MCG (400 UNITS) TABLET PO (08:28)
--- NOTE | 2024-12-20 13:13 | WPDPN ---
Progress Note: A&P Assessment and Plan (1) Cellulitis and abscess of hand: Code(s): L03.119 - Cellulitis of unspecified part of limb; L02.519 - Cutaneous abscess of unspecified hand Status: Acute Assessment and Plan: 34yo male with improving right hand cat bite cellulitis and self-draining abscess reviwed impression noting wbc continues to decrease and normalize. discussed impression and feeling that patient can be transitionined to po abx and discharged with follow up next week. Plan: 1) transition to po abx per primary 2) continue right hand wound dressing, compression and elevation 3) if discharged, continue daily warm moist compresses BID and hand soak daily 4) f/u in office next week Subjective Date/time seen: 12/20/24 13:13 Interval history: pt seen and examined at bedside. notes interval improvement in hand and desires discharge if possible compliant with warm compresses and elevation and dressing instructions notes interval reduction in edema, tightness and improved ROM Exam Narrative: Gen: dressing in place to right hand c/d/ii. open wound stable without expressbale drainage . interval reduction in edema but still mildly persistent. no fluctuance or erythema. ROM: improved extension of R MF as well as flexion. Vascular: Warm and well perfused Sensation: Intact to light touch Objective Data Vital Signs Vital Signs: Vital Signs - 24 hr 12/19/24 20:30 12/19/24 22:00 12/20/24 08:00 Temperature 36.2 C L Pulse Rate 84 Respiratory Rate 16 Blood Pressure 132/79 Pulse Oximetry 98 Oxygen Delivery Room Air Room Air Intake/Output Intake/Output: Intake & Output 12/17/24 12/18/24 12/19/24 12/20/24 23:59 23:59 23:59 23:59 Intake Total 650 2040 1088 Balance 650 2040 1088 Meds/Results Medications: Active Medications Generic Name Dose Route Start Last Admin Trade Name Freq PRN Reason Stop Dose Admin Acetaminophen 650 mg 12/18/24 19:29 Acetaminophen 325 Mg Tablet PO Q4H PRN Pain Rated 5 or Less or Fever Amoxicillin/Clavulanate Potassium 1 tablet 12/20/24 19:00 Amoxicillin/Clavulanate K 875-125 Mg Tab PO Q12HR [facility] Cyclobenzaprine HCl 10 mg 12/18/24 22:55 12/19/24 20:17 Cyclobenzaprine Hcl 10 Mg Tablet PO 10 mg QHS CHAVEZ Administration Dextrose 12.5 gm 12/18/24 19:29 Dextrose 50% 25 Gm/50 Ml Syringe IV PUSH PRN PRN Hypoglycemia Protocol Doxycycline Hyclate 100 mg 12/20/24 21:00 Doxycycline Hyclate 100 Mg Tablet PO Q12HR CHAVEZ Glucagon 1 mg 12/18/24 19:29 Glucagon For Inj 1 Mg Vial IM PRN PRN Hypoglycemia Protocol Glucose 15 gm 12/18/24 19:29 Glucose Oral Gel 15 Gm Of Glucse In 37.5 Gm Tube PO PRN PRN Hypoglycemia Protocol Hydrogen Peroxide/Benzyl Alcohol 20 ml 12/20/24 06:00 12/20/24 06:15 Hydrogen Peroxide 3% Topical Solution 118 Ml Bottle IRRIGATION 20 ml 0600 CHAVEZ Administration Dextrose 1,000 mls @ 100 mls/hr 12/18/24 19:29 Dextrose 5% 1,000 Ml IVPB PRN PRN Hypoglycemia Protocol Loratadine 10 mg 12/19/24 09:00 12/20/24 08:28 Loratadine 10 Mg Tablet PO 10 mg QAM CHAVEZ Administration Morphine Sulfate 4 mg 12/18/24 19:29 12/19/24 21:48 Morphine Sulfate (*Crx) 4 Mg/Ml Inj IV PUSH 4 mg Q2H PRN Administration Pain Rated 6 or Greater Ondansetron HCl 4 mg 12/18/24 19:29 Ondansetron Inj 4 Mg/2 Ml Vial IV PUSH Q4H PRN Nausea Prazosin HCl 15 mg 12/18/24 22:55 12/19/24 20:18 Prazosin Hcl 5 Mg Capsule PO 15 mg HS CHAVEZ Administration Sertraline HCl 200 mg 12/19/24 09:00 12/20/24 08:28 Sertraline Hcl 50 Mg Tablet PO 200 mg DAILY CHAVEZ Administration Trazodone HCl 100 mg 12/18/24 22:55 12/19/24 20:17 Trazodone Hcl 50 Mg Tablet PO 100 mg HS CHAVEZ Administration Vitamin D 10 mcg 12/19/24 09:00 12/20/24 08:28 Cholecalciferol (Vitamin D3) 10 Mcg (400 Units) Tablet PO 10 mcg DAILY CHAVEZ Administration Radiology Results: ITS Impressions Hand CT 12/18/24 17:42 IMPRESSION: Cystic changes in the lunate and triquetral bones. This may be degenerative. Clinical correlation advised. Abscesses seen in the dorsum of the hand opposite the base of the fourth metacarpal bone and distally opposite the third metacarpal bone. Surrounding fat stranding is seen. Labs Labs: Laboratory Results - last 24 hr 12/20/24 06:47 WBC 8.4 RBC 5.42 Hgb 15.4 Hct 47.1 MCV 86.9 MCH 28.4 MCHC 32.7 RDW 12.8 Plt Count 317 MPV 9.2 Immature Gran % (Auto) 1.3 H Neut % (Auto) 57.3 Lymph % (Auto) 22.7 [place] % (Auto) 11.3 H Eos % (Auto) 6.0 H Baso % (Auto) 1.4 H Lymph # (Auto) 1.91 [place] # (Auto) 1.0 H Eos # (Auto) 0.5 H Baso # (Auto) 0.1 Abs Immat Gran (auto) 0.11 H Absolute Neuts (auto) 4.8 Absolute Nucleated RBC 0.000 Nucleated RBC % 0.0 Sodium 138 Potassium 3.8 Chloride 107 Carbon Dioxide 23 Anion Gap 8 BUN 9 Creatinine 1.20 Estim Creat Clear Calc 97 Estimated GFR > 60 Glucose 91 Calcium 8.6 Magnesium 1.9 Total Bilirubin 0.4 AST 31 ALT 21 Alkaline Phosphatase 65 Total Protein 7.0 Albumin 3.8 Vancomycin Trough 11.8
--- NOTE | 2024-12-20 14:36 | P.DS_ITS ---
DS: Admitting Diagnosis Discharge Date 12/20/2024 Admitting Diagnosis Cat bite DS: Discharge Diagnosis Discharge Diagnosis (1) Cellulitis and abscess of hand: Code(s): L03.119 - Cellulitis of unspecified part of limb; L02.519 - Cutaneous abscess of unspecified hand Status: Acute Assessment and Plan: Failed oral antibiotic course as an outpatient Currently on vancomycin and Zosyn Incision and drainage performed in ED Plastics/hand surgeon on board Monitor vitals Monitor blood and wound culture Up-to-date on tetanus vaccination Hand CT:Cystic changes in the lunate and triquetral bones. This may be degenerative. Clinical correlation advised. Abscesses seen in the dorsum of the hand opposite the base of the fourth metacarpal bone and distally opposite the third metacarpal bone. Surrounding fat stranding is seen. (2) Cat bite of right hand: Qualifiers: Encounter type: initial encounter Qualified Code(s): S61.451A - Open bite of right hand, initial encounter; W55.01XA - Bitten by cat, initial encounter Code(s): S61.451A - Open bite of right hand, initial encounter; W55.01XA - Bitten by cat, initial encounter Status: Acute Assessment and Plan: Plastics recommendation: 1) warm soaks of right hand in saline with either betadine or peroxide. 2) dress open wound with xeroform, 4x4 and cullen wrap 3) BID warm moist compresses to area BID 4) elevate extremity 5) continue IV abx per primary and change to po as indicated or if cultures return 6) reconsult plastics if needed but will be unavailable after tomorrow 7)f/u with plastics after discharge. DS: Summary Hospital Course Hospital Course: 34-year-old male with no significant past medical history reported to ED due to cat bite on his right hand. As per ED documentation patient was bit by a family CT 13 days ago on his right hand (3rd metacarpal region). As an outpatient patient received Augmentin and completed the 7 day course on loss the stay. Unfortunately patient has still persistent swelling, redness and pain on his right hand. Denies any fever, chills, nausea or vomiting. As per patient cat is up-to-date on vaccination. Patient last tetanus vaccination a last year. Patient is started on Zosyn and vancomycin. As per ED, Discussed case with Dr. Joel, plastic/hand surgery, recommended vanc and Zosyn for more broad coverage given that he did not respond well with Augmentin initially. Recommended to try to I&D to open up draining region further. Was performed in the ED. Patient tolerated procedure well. Will consult and see patient tomorrow. Also recommended Betadine/peroxide/tingling soak, warm compresses, elevation of hand. Reviewed culture of the wound. Patient is started on amoxicillin/clavulanic acid and doxycycline for 7 days. Plastic surgeon agrees to DC with the following instruction 1) transition to po abx per primary 2) continue right hand wound dressing, compression and elevation 3) if discharged, continue daily warm moist compresses BID and hand soak daily 4) f/u in office next week On the day of discharge, the patient was seen and examined. Vital signs were stable. Physical exam were stable and labs were reviewed at length. Discharge instructions, medications, and follow-up appointments were discussed with the patient at length and all day questions were answered. ER warnings were given. Status at Discharge Cognitive/behavioral status at discharge: Stable Time Spent with Patient Time attestation: Total time spent providing and/or coordinating discharge services: 45 minutes Exam Narrative: GENERAL: Well appearing, well-nourished, non-toxic, in no acute distress. HEAD: Normocephalic, atraumatic. RESPIRATORY: Airway patent, respirations nonlabored. Clear to auscultation bilaterally, no rales, rhonchi, wheezing. CARDIOVASCULAR: Regular rate and rhythm without murmurs, rubs, or gallops. Radial pulses strong and easily palpable. MUSCULOSKELETAL: Moves all extremities. R dorsal hand with diffuse swelling dorsally and into fingers. Moderate erythema, particularly over 2nd-4th mcp/metacarpal regions, most localized to his 3rd mcp region. Flaking of skin in this region. 2 puncture wounds over dorsal hand surrounding 3rd mcp region with active purulent drainage. Full flexion ROM of fingers, though somewhat decreased extension of 3rd digit. No pain with passive extension. Full flexion of the 3rd digit will express further purulent drainage. No streaking lymphangitis. Sensation intact throughout hand. SKIN: Warm, dry, normal color. NEURO: A&O X3. Speech clear. PSYCHIATRIC: Appropriate mood and affect. Normal interaction. DS: Data Data Completed and Pending Labs on day of discharge: Labs from last 24 hours 12/20/24 06:47 WBC 8.4 RBC 5.42 Hgb 15.4 Hct 47.1 MCV 86.9 MCH 28.4 MCHC 32.7 RDW 12.8 Plt Count 317 MPV 9.2 Immature Gran % (Auto) 1.3 H Neut % (Auto) 57.3 Lymph % (Auto) 22.7 [place] % (Auto) 11.3 H Eos % (Auto) 6.0 H Baso % (Auto) 1.4 H Lymph # (Auto) 1.91 [place] # (Auto) 1.0 H Eos # (Auto) 0.5 H Baso # (Auto) 0.1 Abs Immat Gran (auto) 0.11 H Absolute Neuts (auto) 4.8 Absolute Nucleated RBC 0.000 Nucleated RBC % 0.0 Sodium 138 Potassium 3.8 Chloride 107 Carbon Dioxide 23 Anion Gap 8 BUN 9 Creatinine 1.20 Estim Creat Clear Calc 97 Estimated GFR > 60 Glucose 91 Calcium 8.6 Magnesium 1.9 Total Bilirubin 0.4 AST 31 ALT 21 Alkaline Phosphatase 65 Total Protein 7.0 Albumin 3.8 Vancomycin Trough 11.8 Preliminary micro results at discharge 12/18/24 16:44 Anaerobic Culture - Preliminary Abscess Aerobic Culture - Preliminary Pasteurella multocida 12/18/24 17:04 Blood Culture - Preliminary Blood 12/18/24 16:44 Blood Culture - Preliminary Blood Discharge Plan Discharge Attending physician on discharge: Hai Mcmahan Consulting providers: Telly Joel Discharging Clinician: Hai Mcmahan Anticipated Discharge Date/Time: 12/20/24 14:37 Patient Disposition: Home Activity: as tolerated Diet: regular Discharge Instructions: Daily warm moist compresses BID and hand soak daily Continue right hand wound dressing, compression and elevation Follow-up with plastic surgeon In the event of pain, redness, fever please seek immediate medical care Please complete the course of antibiotic for 7 days Patient Instructions: Antibiotic Form Patient Language: Mongolian Stand Alone Forms: General Discharge Information Follow-up/Referrals: Telly Joel MD [Physician] - [facility] [Primary Care Provider] - Discharge Medications: New doxycycline hyclate 100 mg Tablet 100 mg PO Q12HR Qty: 14 0RF amoxicillin-pot clavulanate 875-125 mg tablet 1 tablet PO Q12H Qty: 14 0RF Continued trazodone 100 mg tablet 100 mg PO HS sertraline [Zoloft] 100 mg tablet 200 mg PO DAILY prazosin 5 mg capsule 15 mg PO HS cyclobenzaprine 10 mg tablet 10 mg PO QHS celecoxib [Celebrex] 100 mg capsule 200 mg PO BID PRN (Reason: pain) cholecalciferol (vitamin D3) 10 mcg (400 unit) capsule 10 mcg PO DAILY All Day Allergy (cetirizine) 10 mg capsule 10 mg PO DAILY Date of admission: 12/18/24 19:29 Primary Care Provider: [facility] Admitting Provider: Hai Mcmahan Attending physician on admission: Hai Mcmahan Condition: Stable
== END 2024-12-20 14:53 | disposition home or self-care (01) ==
LOC: ANHED 19:20 → ANH3MEDSUR 20:51 → ANH3MED 21:09
PROVIDERS: Nurse Practitioner; Admitting Provider General Practice; Emergency Provider Physician Assistant; Visit Provider General Practice
DX: S61.451A Open bite of right hand, initial encounter (principal); L03.113 Cellulitis of right upper limb; L02.511 Cutaneous abscess of right hand; W55.01XA Bitten by cat, initial encounter; F41.9 Anxiety disorder, unspecified; F32.A Depression, unspecified; Z79.899 Other long term (current) drug therapy
CPT/HCPCS: 10060; 36415; 73201; 80053; 80202; 83605; 83735; 85025; 85652; 86140; 87040; 87070; 87075; 87205; 96365; 96366; 96367; 96368; 96375; 99285; A9270; G0378; J0295; J2003; J2270; J2543; J3370; Q9967